=== PATIENT | female | born 1950 | race Caucasian/White ===

== ENCOUNTER 2019-11-26 20:20 | Inpatient (IN) | payer MEDICARE, MEDICAID, SELFPAY ==
[2019-11-26] VITALS (8 sets, daily range): BP systolic 110–137; BP diastolic 66–74; PULSE 108–115; RESP 12–23; TEMP 37; O2SAT 93–99; BMI 35.8
--- NOTE | ~2019-11-26 | XR_ITS ---
EXAMINATION: XR chest 1V portable EXAM DATE: 11/26/2019 20:35 INDICATION: STEMI. TECHNIQUE: Portable AP frontal chest x-ray was obtained. There is no prior study for comparison. FINDINGS: Sternotomy wires are present without findings to suggest sternal dehiscence. There is pulmo nary vascular congestion. Cardiomediastinal silhouette is normal. There is no pneumothorax suspected. Possible small pleural effusions. No confluent consolidation or pneumothorax. IMPRESSION: 1. Pulmonary vascular congestion. 2. Possible small pleural effusions. Reviewed, dictated and finalized at location A.
--- NOTE | ~2019-11-26 | XR_ITS ---
XR chest 1V portable DATE: 11/27/2019 12:53 INDICATION: Shortness of breath. TECHNIQUE: Portable supine AP chest on 11/27/2019 at 1249 hours COMPARISON: 11/27/2019 portable AP chest at 0009 hours FINDINGS: There are increased bilateral pulmonary infiltrates, in addition to prominence of the minor fissure consistent with subpleural edema and Дмитрий B lines consistent with pulmonary interstitial e dimitris. There are very small pleural effusions. Normal heart size. Status post sternotomy. Diffuse osteopenia. IMPRESSION: Increased pulmonary edema since 0009 hours today Reviewed, dictated and finalized at location B.
--- NOTE | ~2019-11-26 | XR_ITS ---
EXAMINATION: XR chest 1V portable DATE: 11/27/2019 00:59 INDICATION: Chest pain and shortness of breath TECHNIQUE: frontal view of the chest was obtained. COMPARISON: Chest radiograph dated 11/26/2019 FINDINGS: No significant interval change in pulmonary vascular congestion and a diffuse increased interstitial pattern in both lungs. No pneumothorax or definitive pleural effusion. Calcified nodules in the left lung along with calcified splenic nodules consistent with old granulomatous disease. Heart size is no rmal. Median sternotomy wires and mediastinal surgical clips are seen, likely from prior coronary art margaret bypass grafting. Cholecystectomy clips in right upper quadrant. IMPRESSION: 1. Diffuse increased interstitial pattern which could represent pulmonary edema or pneumonia. Reviewed, dictated and finalized at location A.
--- NOTE | ~2019-11-26 | XR_ITS ---
EXAMINATION: XR chest 1V portable DATE: 11/28/2019 06:07 INDICATION: Pulmonary edema. TECHNIQUE: A single frontal view of the chest was obtained. COMPARISON: Chest single view 11/27/2019 FINDINGS: There are airspace opacities in all lung zones bilaterally with a perihilar predominance. A calcified left lung nodule is consistent with old granulomatous disease. No pleural effusion or pneu mothorax. The heart size is normal. Median sternotomy wires are noted. IMPRESSION: 1. Stable diffuse lung disease, consistent with pulmonary edema versus pneumonia. Reviewed, dictated and finalized at location A. IMPRESSION: 1. Stable diffuse lung disease, consistent with pulmonary edema versus pneumoni a.
--- NOTE | ~2019-11-26 | US_ITS ---
US right upper quadrant DATE: 11/28/2019 09:48 INDICATION: Elevated liver function tests TECHNIQUE: Real-time imaging of liver, pancreas, gallbladder fossa COMPARISON: None FINDINGS: The gallbladder is surgically absent. The pancreas is not well demonstrated due to interference from overlying bowel gas. The common bile duct measures 4.5 mm, within normal range. No hepatic space-occupying mass lesion is evident. Normal hepatic portal venous flow direction. IMPRESSION: Status post cholecystectomy Limited evaluation of the pancreas Reviewed, dictated and finalized at Location A. Reviewed, dictated and finalized at location B.
--- NOTE | ~2019-11-26 | XR_ITS ---
EXAMINATION: XR chest 1V portable DATE: 12/04/2019 09:58 INDICATION: Congestive heart failure. Shortness of breath. TECHNIQUE: A single frontal view of the chest was obtained. COMPARISON: Chest single view 11/30/2019 FINDINGS: There are small pleural effusions. There are patchy airspace opacities in all right lung zo christoph and in left mid and lower lung zones with a basilar predominance. A calcified left lung nodule is consistent with old granulomatous disease. No pneumothorax. The heart size is normal. Median sternot anabelle wires are noted. IMPRESSION: 1. Multifocal lung disease with interval improvement, consistent with pulmonary edema versus pneumoni a. 2. Stable small pleural effusions. Reviewed, dictated and finalized at location A. IMPRESSION: 1. Multifocal lung disease with interval improvement, consistent with pulmonary edema versus pneumonia. 2. Stable small pleural effusions.
--- NOTE | ~2019-11-26 | XR_ITS ---
EXAMINATION: XR chest 1V portable DATE: 11/30/2019 05:51 INDICATION: Congestive heart failure. TECHNIQUE: A single frontal view of the chest was obtained. COMPARISON: Chest single view 11/29/2019 FINDINGS: There are small pleural effusions. A calcified left lung nodule is consistent with old gran ulomatous disease. There are airspace opacities in all lung zones bilaterally. No pneumothorax. The h eart size is normal. Median sternotomy wires are noted. IMPRESSION: 1. Stable diffuse lung disease, consistent with pulmonary edema versus pneumonia. 2. Small pleural effusions. Reviewed, dictated and finalized at location A. IMPRESSION: 1. Stable diffuse lung disease, consistent with pulmonary edema versus pneumoni a. 2. Small pleural effusions.
--- NOTE | ~2019-11-26 | XR_ITS ---
EXAMINATION: XR chest 1V portable INDICATION: Congestive heart failure TECHNIQUE: Portable AP chest at 1220 hours COMPARISON: 11/28/2019 FINDINGS: Diffuse lung disease persists with slight improvement in the right upper lung zone. No defi nite pleural effusion or pneumothorax is identified. The heart size is normal. Median sternotomy wire s are consistent with prior cardiac surgery. Calcified nodule of the left midlung zone is consistent with old granulomatous disease. IMPRESSION: 1. Diffuse lung disease with slight improvement in the right upper lung zone, consistent with pulmona ry edema and/or pneumonia. Reviewed, dictated and finalized at location A. IMPRESSION: 1. Diffuse lung disease with slight improvement in the right upper lung zone, c onsistent with pulmonary edema and/or pneumonia.
--- NOTE | 2019-11-26 20:21 | ECG_ITS ---
Measurements Intervals [place] Rate: 110 P: 18 NC: 159 QRS: 51 QRSD: 120 T: 120 QT: 380 QTc: 514 Interpretive Statements SINUS TACHYCARDIA LEFT BUNDLE BRANCH BLOCK HIGH LATERAL ST ELEVATION MYOCARDIAL INJURY- ACUTE LATERAL ST ELEVATION MYOCARDIAL INJURY- ACUTE BASELINE WANDER- I, II, AVR, AVL ABNORMAL ECG Electronically Signed On 11-27-2019 7:23:59 CDT by Elgin Maurice D.O.
--- NOTE | 2019-11-26 20:26 | ED.CHESTPAIN ---
HPI - Chest Pain General Chief Complaint: Chest Pain Stated Complaint: stemi Time Seen by Provider: 11/26/19 20:20 Source: patient, EMS and RN notes reviewed Mode of arrival: EMS Limitations: no limitations History of Present Illness HPI narrative: Pt is a 69 y/o female who presents to the ED, via EMS, with c/o 8/10 epigastric pain that began yesterday morning, but has progressively worsened. Pt describes her pain as burning. EMS called a STEMI in the field. Pt received ASA 324 mg and 1 NTG by EMS en route to the ED. EMS states the pt has a hx of an AZ and a triple CABG. Pt denies having a prior AZ. Pt states that she got out of the shower today and vomited before she could even dry off. Pt states that she normally goes to [facility] ED. Pt also reports nausea, vomiting, and dyspnea. MD complaint: chest pain Pertinent past history: prior AZ and CABG Onset (ago): day(s) (1) Timing of current episode: other (progressively worsening) Prior episodes: Yes Onset: during rest Pain location: epigastric Pain radiation: none Quality: burning Associated symptoms: nausea, vomiting and dyspnea Treatment prior to arrival: aspirin (324 mg by EMS) and nitroglycerin (x1 by EMS) Related Data Allergies Allergy/AdvReac Type Severity Reaction Status Date / Time ibuprofen [From Motrin IB] Allergy Swelling Verified 11/26/19 20:30 of the Eye morphine AdvReac Nausea and Verified 11/26/19 20:44 Vomiting Review of Systems Review of Systems: All systems reviewed & are unremarkable except as noted in HPI and below Cardiovascular: Cardiovascular: Reports chest pain (epigastric) Respiratory: Respiratory: Reports dyspnea Gastrointestinal: Gastrointestinal: Reports nausea and Reports vomiting PMFSH Past Medical History Medical History (Updated 11/26/19 @ 21:15 by Rasheed Bowie MD) Myocardial infarction Surgical History Surgical History (Updated 11/26/19 @ 20:39 by Divine Meza) S/P CABG x 3 Social History Social History (Updated 11/26/19 @ 20:40 by Divine Meza) Smoking status: Unknown if ever smoked Gender identity (if verbalized by the patient): Female Exam Const: General: alert and ill appearing acutely and chronically Nutritional Appearance: well nourished Orientation/consciousness: patient oriented x3 Other: moderate distress HENMT: Mouth: Yes dry mucous membranes Chest: Other: Sternotomy scar Resp: Effort & Inspection: normal respiratory effort Auscultation: clear to auscultation bilaterally Cardio: Rate: tachycardic Rhythm: regular rhythm GI: Other: Soft NT Neuro: General: patient oriented x3 and moves all extremities Speech: normal speech Extrem: General: edema bilateral Course Consultations Consultation #1: Discussed case with Dr. Salinas (Fabric Cutter). Recommends lytics and admission. Date: 11/26/19 Time: 20:43 Consultation #2: Discussed case with Dr. Bryant (Dockmaster). Accepts admission. Date: 11/26/19 Time: 21:04 Vital Signs Vital signs: Vital Signs Temperature 37.0 C 11/26/19 20:22 Pulse Rate 111 H 11/26/19 20:22 Respiratory Rate 18 11/26/19 20:22 Blood Pressure 137/70 11/26/19 20:22 Pulse Oximetry 93 11/26/19 20:22 Temperature 37.0 C 11/26/19 20:22 Pulse Rate 110 H 11/26/19 21:42 Respiratory Rate 12 11/26/19 21:42 Blood Pressure 113/74 11/26/19 21:42 Pulse Oximetry 97 11/26/19 21:42 MDM - Chest Pain MDM Narrative Medical decision making narrative: STEMI called. laboratory mechanic helper activated. Discussed the patient with interventional cardiology. He does not believe that it is appropriate to take stable STEMI patients to the systems testing laboratory technician given concerns for possible COVID exposure. He is recommending lytics and admission. Differential Diagnosis Differential diagnosis: Likely st elevation myocardial infarction Medical Records Data Attestation: I reviewed the patient's medical records. Lab Data Attestation: I reviewed the patient's lab res
[2019-11-26 20:33] LABS: Basophils Absolute Auto 0.1 K/mm3 (0.0-0.1); Basophils Percent Auto 0.6 % (0.2-1.2); Eosinophils Absolute Auto 0.1 K/mm3 (0-0.3); Eosinophils Percent Auto 0.4 % (0-4.4); Hematocrit 49.6 % (37.0-47.0); Hemoglobin 16.6 g/dL (12.0-15.0); Immature Granulocyte Absolute 0.07 K/mm3 (0.00-0.031); Immature Granulocyte Percent A 0.5 % (0-0.5); Lymphocytes Absolute Auto 2.69 K/mm3 (0.9-3.2); Lymphocytes Percent Auto 18.9 % (18.3-44.2); Mean Corpuscular HGB Conc 33.5 g/dl (32-36); Mean Corpuscular Hemoglobin 30.1 pg (26-34); Mean Corpuscular Volume 89.9 fl (80-100); Mean Platelet Volume 11.1 fl (7.4-10.4); Monocytes Absolute Auto 0.6 K/mm3 (0.1-0.6); Monocytes Percent Auto 4.1 % (2.6-8.5); Neutrophils Absolute Auto 10.8 K/mm3 (1.3-6.7); Neutrophils Percent Auto 75.5 % (45.5-73.1); Platelet Count Result 373 k/mm3 (150-375); Red Blood Count 5.52 M/mm3 (4.2-5.4); Red Cell Distribution Width 12.8 % (11.5-14.5); White Blood Count 14.3 K/mm3 (4.5-10.0)
[2019-11-26 20:43] LABS: INR 0.9; Partial Thromboplastin Time 27.7 SECONDS (22.3-36.8); Prothrombin Time 12.2 Seconds (11.1-14.7)
[2019-11-26 20:48] LABS: Alanine Aminotransferase 25 U/L (4-35); Albumin Level 3.3 g/dL (3.5-5.1); Alkaline Phosphatase 319 U/L (38-126); Aspartate Amino Transferase 122 U/L (14-36); Bilirubin,Total 0.5 mg/dL (0.2-1.3); Blood Urea Nitrogen 17 mg/dL (7-17); Calcium 9.1 mg/dL (8.4-10.2); Carbon Dioxide 20 mmol/L (22-30); Chloride 100 mmol/L (98-107); Estimated CRCL calculation 73 ml/min; Estimated Glomerular Filt Rate > 60; Glucose 478 mg/dL (65-105); HDL Direct 52 mg/dL; Potassium 3.3 mmol/L (3.4-5.0); Sodium 134 mmol/L (137-145); Triglycerides 385 mg/dL (<150)
[2019-11-26 20:52] LABS: Cholesterol 474 mg/dL (0-200)
[2019-11-26 20:56] LABS: LDL Cholesterol Direct 280 mg/dL
--- NOTE | 2019-11-26 20:57 | PC.NURSE ---
pt not to go to laboratory chief biomedical equipment specialist choosing to do lytic therapy opposed to laboratory chief awaiting orders to proceed with care of the pt
--- NOTE | 2019-11-26 20:59 | PC.NURSE ---
pt does not take any medications at home due to cost, stated that she has no money to pay for meds, and it has been a long time since she took anything
--- NOTE | 2019-11-26 21:02 | PC.NURSE ---
VRBO FROM DR BEAL TO START TPA AT 15MG OVER 1-2 MINS 50 MG OVER 30 MINS 35MG OVER 30 MINS
[2019-11-26] MEDS: ONDANSETRON INJ 4 MG/2 ML VIAL (21:24)
--- NOTE | 2019-11-26 21:34 | PC.NURSE ---
consent signed by and placed in chart for start of tpa.
[2019-11-26] MEDS: HEPARIN SODIUM 5,000 UNITS/ML VIAL 4000 UNITS IV PUSH (22:15)
[2019-11-26] MEDS: HEPARIN SOD/D5W 100 UNITS/ML 25,000 UNITS/250 ML BAG 9 UNITS IV CONT (22:29)
[2019-11-26] MEDS: METOPROLOL TARTRATE 50 MG TAB PO (22:32)
[2019-11-26] MEDS: CLOPIDOGREL BISULFATE 300 MG TABLET PO (22:32)
[2019-11-26] MEDS: ATORVASTATIN 40 MG TABLET 80 MG PO (22:32)
[2019-11-26] MEDS: LACTATED RINGERS 1,000 ML 75 ML IV CONT (23:29)
--- NOTE | 2019-11-26 23:38 | ADMGEN ---
This patient, Lisa Aparicio, was admitted to Intensive Care Unit-11. Patient/family oriented to hospital policies and general routines including ID bracelet, bed and alarms, visiting hours, pain management, procedures, bathroom and other care routines, personal items, smoking policy, room service/diet, and visiting hours. Valuables list has been completed. Information on how to activate the Rapid Response Team has been discussed. Patient/Family are encouraged to report perceived risks to care and to ask questions if they do not understand what they are told or what they should do.
[2019-11-27] VITALS (22 sets, daily range): BP systolic 103–143; BP diastolic 61–84; PULSE 105–125; RESP 14–91; TEMP 35.8–37.1; O2SAT 20–97
[2019-11-27] LABS: Basophils Absolute Auto 0.1 K/mm3 (0.0-0.1); Basophils Percent Auto 0.4 % (0.2-1.2); Eosinophils Percent Auto 0.1 % (0-4.4); Hematocrit 52.4 % (37.0-47.0); Hemoglobin 17.8 g/dL (12.0-15.0); Immature Granulocyte Percent A 0.5 % (0-0.5); Lymphocytes Absolute Auto 1.83 K/mm3 (0.9-3.2); Lymphocytes Percent Auto 9.7 % (18.3-44.2); Mean Corpuscular Hemoglobin 30.4 pg (26-34); Mean Corpuscular Volume 89.4 fl (80-100); Mean Platelet Volume 11.3 fl (7.4-10.4); Monocytes Absolute Auto 0.8 K/mm3 (0.1-0.6); Monocytes Percent Auto 4.3 % (2.6-8.5); Platelet Count Result 383 k/mm3 (150-375); Red Blood Count 5.86 M/mm3 (4.2-5.4); Red Cell Distribution Width 12.7 % (11.5-14.5); White Blood Count 18.8 K/mm3 (4.5-10.0)
--- NOTE | 2019-11-27 | ECHO_ITS ---
Patient Info Name: Lisa Aparicio Age: 69 years : 1950 Gender: Female Ht: 62 in Wt: 189 lbs BSA: 1.98 m2 HR: 110 bpm BP: 113 / 71 mmHg Heart Rhythm: Tachycardia Technical Quality: Good Exam Date: 11/27/2019 1:32 PM Exam Location: [facility] Patient Status: Inpatient Admit Date: 11/26/2019 Staff Ordering Physician: Griffin Salinas MD Careers Adviser: Anupam Perez RDCS Attending Provider: Griffin Salinas MD Exam Type: CA echo dop color flow w con Study Info Indications I21.3 - ST elevation (STEMI) myocardial infarction of unspecified site Complete two-dimensional, color flow and Doppler transthoracic echocardiogram is performed with contrast to opacify the left ventrical and to improve the deliniation of the left ventrical endocarial boarders. Contrast/Agitated Saline Contrast/Ag. Saline: Definity Amount: 3.00 ml Administered By: Beatris Turner RN Existing IV Access: Yes History/Risk Factors STEMI; CAD s/p 3vCABG, chest pain. Summary 1. Severe left ventricular dysfunction is present. Ejection fraction visually is 25-30%, and measured is 33%. There is akinesis of the posterior lateral, distal inferior, proximal, mid and distal lateral mclaughlin, severe hypokinesis of the mid distal septum and mild hypokinesis of the inferior wall and mid and proximal septum. 2. Normal left ventricular size with mild concentric hypertrophy. Diastolic dysfunction is present. 3. There is moderate mitral valve regurgitation. 4. There is moderate tricuspid valve regurgitation. 5. Left atrial chamber dimension is moderately enlarged. 6. Technically difficult study, definity echo contrast used. Left Ventricle Left ventricular chamber dimension is normal. Left ventricular systolic function is severely reduced, estimated at 25-30%. There is mildly increased left ventricular wall thickness. Left ventricular septal wall motion is normal. The left ventricular diastolic function is grade II diastolic dysfunction. Global longitudinal strain is severely elevated at 7 %. Right Ventricle Right ventricular chamber dimension is normal. Right ventricular systolic function is normal. Left Atria Left atrial chamber dimension is moderately enlarged. Right Atria Right atrial chamber dimension is normal. Aortic Valve The aortic valve is trileaflet. There is mild aortic valve sclerosis. There is no aortic valve stenosis. There is no aortic valve regurgitation. Pulmonic Valve The pulmonic valve is normal. There is no pulmonic valve stenosis. There is trace pulmonic regurgitation. Mitral Valve The mitral valve has normal leaflets. There is no mitral valve stenosis. There is moderate mitral valve regurgitation. Tricuspid Valve The tricuspid valve leaflets are normal. There is no significant tricuspid valve stenosis. There is moderate tricuspid valve regurgitation. No pulmonary hypertension, estimated pulmonary arterial systolic pressure is 29 mmHg. Pericardium/Pleural The pericardium appears normal. There is no pericardial effusion. Inferior Vena Cava Normal inferior vena cava with >50% collapse upon inspiration consistent with Empty right atrial pressure, 5 mmHg. Aorta The aortic root size at the sinus of Valsalva is normal. The prox ascending aorta size is normal. Left Ventricular Outflow Tract Name
--- NOTE | 2019-11-27 00:03 | ECG_ITS ---
Measurements Intervals [place] Rate: 119 P: 203 PA: 108 QRS: 140 QRSD: 126 T: 241 QT: 362 QTc: 509 Interpretive Statements SINUS RHYTHM LIMB LEAD REVERSAL INTRAVENTRICULAR CONDUCTION DELAY DELAYED PRECORDIAL R/S TRANSITION ST ELEVATION IN LEAD V6- CONSIDER ACUTE INJURY BASELINE ARTIFACT- I, II, AVR, V5 ABNORMAL ECG Electronically Signed On 11-27-2019 7:27:16 CDT by Elgin Maurice D.O.
[2019-11-27 00:06] LABS: INR 1.4; Prothrombin Time 16.6 Seconds (11.1-14.7)
[2019-11-27 00:09] LABS: Partial Thromboplastin Time 156.8 SECONDS (22.3-36.8)
[2019-11-27 00:18] LABS: Glucose 511 mg/dL (65-105)
[2019-11-27 00:30] LABS: Troponin I > 80.000 ng/mL (0.000-0.034)
[2019-11-27] MEDS: FUROSEMIDE INJ 40 MG/4 ML VIAL 20 MG IV PUSH (00:59)
[2019-11-27] MEDS: INSULIN HUMAN REGULAR (*BKC) 100 UNITS/ML 10 UNITS IV PUSH (01:00)
[2019-11-27] MEDS: MORPHINE SULFATE 2 MG/ML INJ IV PUSH (01:15)
[2019-11-27] MEDS: NITROGLYCERIN/D5W 200 MCG/ML 50 MG/250 ML BTL 6 MG IV CONT (01:22)
[2019-11-27] MEDS: FUROSEMIDE INJ 40 MG/4 ML VIAL IV PUSH ×2 (02:12→15:19)
[2019-11-27] MEDS: ONDANSETRON INJ 4 MG/2 ML VIAL IV PUSH ×3 (02:12→15:04)
[2019-11-27 02:24] LABS: Basophils Absolute Auto 0.1 K/mm3 (0.0-0.1); Basophils Percent Auto 0.5 % (0.2-1.2); Eosinophils Percent Auto 0.1 % (0-4.4); Hematocrit 52.8 % (37.0-47.0); Hemoglobin 17.5 g/dL (12.0-15.0); Immature Granulocyte Absolute 0.08 K/mm3 (0.00-0.031); Immature Granulocyte Percent A 0.5 % (0-0.5); Lymphocytes Absolute Auto 1.24 K/mm3 (0.9-3.2); Lymphocytes Percent Auto 7.1 % (18.3-44.2); Mean Corpuscular HGB Conc 33.1 g/dl (32-36); Mean Corpuscular Hemoglobin 30.2 pg (26-34); Mean Corpuscular Volume 91.2 fl (80-100); Mean Platelet Volume 11.4 fl (7.4-10.4); Monocytes Absolute Auto 0.8 K/mm3 (0.1-0.6); Monocytes Percent Auto 4.6 % (2.6-8.5); Neutrophils Absolute Auto 15.4 K/mm3 (1.3-6.7); Neutrophils Percent Auto 87.2 % (45.5-73.1); Platelet Count Result 395 k/mm3 (150-375); Red Blood Count 5.79 M/mm3 (4.2-5.4); Red Cell Distribution Width 13.1 % (11.5-14.5); White Blood Count 17.6 K/mm3 (4.5-10.0)
--- NOTE | 2019-11-27 02:38 | PC.NURSE ---
Received this patient to ICU 11 from ED at 2315 on 11/26/19 post STEMI. TPA given in ED per Dr. Salinas's orders vs laboratory sample carrier. Called Dr. Bryant at 0000 11/27/19 because there is no hospitalist on the case because the patient's respirations were now labored, she was requiring 5L o2 vs the 1L she came up to ICU on, her lungs were coarse sounding, she was breathing 30 bpm, her heart rate was up to 130/min, her blood sugar was 478, and there was some bleeding in her mouth. Dr. Bryant told me to order a chest xray and call him with the results. I ordered the xray and noticed the patient was doing even worse so I got an EKG and called Dr. Salinas at 0033. He said to give a one time dose of 20mg IV lasix and to start her on a nitro drip at 20. Dr. Salinas also said that we may have to take the patient to the laboratory sample carrier early this morning around 0700, but keep her heparin drip running for now and make her NPO. I did all of this and called Dr. Bryant back at 0050. I told him the results of the chest xray as well as the fact that the patient's glucose was now 511 and her breathing/pain was still labored. Dr. Bryant told me to order a high dose corrective insulin scale, check her blood sugars every 4 hours, and administer 10 units of regular insulin IV and that I could give 2mg IV morphine. After doing this the patient fell asleep for a little bit. Then at 0200 she woke up and felt really nauseous and threw up so I called Dr. Bryant at 0206 and told him about the patient's nausea as well as her lungs not sounding much improved. He told me to give her 40 IV lasix and a dose of zofran. The patient urinated 200mL after the 40mg lasix and is now laying in bed resting at 0256 11/27/19.
[2019-11-27 03:40] LABS: Troponin I > 80.000 ng/mL (0.000-0.034)
[2019-11-27 04:00] LABS: Glucose Point of Care > 500 (65-105)
[2019-11-27] MEDS: INSULIN HUMAN REGULAR (*BKC) 100 UNITS in SODIUM CHLORIDE 0.9% IV 99 ML 8.8 UNITS IV CONT (04:45)
[2019-11-27 04:46] LABS: Hemoglobin A1C 13.9 % (<5.7)
[2019-11-27] MEDS: PROCHLORPERAZINE EDISYLATE 10 MG/2 ML VIAL IV PUSH ×3 (04:46→20:10)
[2019-11-27 04:54] LABS: Magnesium 1.7 mg/dL (1.6-2.3); Phosphorus 5.8 mg/dL (2.5-4.5)
[2019-11-27] MEDS: SODIUM CHLORIDE 0.9% IV 1,000 ML 10 ML IV CONT (04:58)
[2019-11-27 05:11] LABS: Blood Urea Nitrogen 21 mg/dL (7-17); Calcium 9.1 mg/dL (8.4-10.2); Carbon Dioxide 21 mmol/L (22-30); Chloride 100 mmol/L (98-107); Estimated CRCL calculation 57 ml/min; Estimated Glomerular Filt Rate > 60; Glucose 575 mg/dL (65-105); Potassium 3.8 mmol/L (3.4-5.0); Sodium 132 mmol/L (137-145)
[2019-11-27 05:13] LABS: Partial Thromboplastin Time > 200.0 SECONDS (22.3-36.8)
[2019-11-27 06:03] LABS: Glucose Point of Care 486 (65-105)
[2019-11-27 06:52] LABS: Glucose Point of Care 449 (65-105)
[2019-11-27 08:09] LABS: Glucose Point of Care 402 (65-105)
--- NOTE | 2019-11-27 08:29 | PM.IMHP ---
H&P: HPI History of Present Illness Chief complaint: STEMI Narrative: Lisa Aparicio is a 69 year old female CAD, history of remote CABG x3 in 2005 at [place], [place] (as per patient, operative report not available), poorly controlled diabetes mellitus, noncompliance with medical regimen and outpatient follow-up due to financial reasons. Patient presented to [facility] on 11/26/2019 with about 1 day history of epigastric discomfort associated with diaphoresis and nausea. At baseline, patient states that he is able to walk without difficulty. She states due to financial reasons, she has not been able to follow-up with a adult services librarian for last 2-3 years. She gives remote history of CABG x3. Patient's EKG upon arrival in the ER which I personally evaluated showed sinus tachycardia, heart rate 110 beats per minute, left bundle-branch block, ST segment elevation in the lateral leads. Patient was initiated on thrombolytic therapy and was given tenecteplase. She was also given antiplatelet treatment with aspirin and clopidogrel, and anticoagulation with unfractionated heparin. Patient was subsequently admitted to the ICU. She had mild discomfort which resolved through the night. EKG in the morning which I personally evaluated showed sinus tachycardia, modest improvement in the ST segment abnormality in the lateral leads. Chest x-ray showed pulmonary vascular congestion. Review of Systems Constitutional: Constitutional: Denies chills, Denies fatigue, Denies fever(s) and Denies headache(s) Eyes: Eyes: Reports as per HPI, Denies change in vision, Denies loss of vision and Denies eye pain ENT: Reports as per HPI, Reports Normal hearing present, Denies headache(s), Denies lip swelling, Denies epistaxis and Denies sore throat Cardiovascular: Cardiovascular: Reports as per HPI, Reports chest pain, Denies syncope, Denies irregular heart rhythm, Reports lightheadedness and Reports dyspnea Respiratory: Respiratory: Reports as per HPI, Denies cough and Reports dyspnea Gastrointestinal: Gastrointestinal: Reports as per HPI, Denies melena, Reports nausea and Reports vomiting Genitourinary: Genitourinary: Reports as per HPI Musculoskeletal: Musculoskeletal: Reports as per HPI, Denies myalgias, Denies muscle cramps and Denies muscle weakness Integumentary/Breasts: Skin/Breast: Reports as per HPI, Denies pruritus and Denies rash Neurologic: Reports as per HPI, Reports Normal hearing present, Denies behavioral changes, Denies syncope, Denies headache(s) and Denies loss of vision Psychiatric: Psychiatric: Reports as per HPI, Denies anxiety, Denies behavioral changes and Denies depression Endocrine: Endocrine: Reports as per HPI, Denies fatigue, Denies polydipsia and Denies polyuria Hematologic/Lymphatic: Hematologic/Lymphatic: Reports as per HPI, Denies easy bleeding and Denies easy bruising Allergic/Immunologic: Allergic/Immunologic: Reports as per HPI, Denies lip swelling and Denies wheezing PMFSH Past Medical History Medical History Myocardial infarction Surgical History Surgical History S/P CABG x 3 Family History Family History (Updated 11/27/19 @ 08:57 by Griffin Salinas MD) Mother Heart disease Social History Social History Smoking status: Never smoker Alcohol intake: never Substance use: never Substance use type: does not use Gender identity (if verbalized by the patient): Female Spiritual care concerns: No Agree to blood products: Yes Meds Home Medications and Allergies Home Medications Medication Instructions Recorded Confirmed Type No Home Medications 11/26/19 11/26/19 History Allergies Allergy/AdvReac Type Severity Reaction Status Date / Time ibuprofen [From Motrin IB] Allergy Swelling Verified 11/26/19 20:30 of the Eye
[2019-11-27 08:44] LABS: Blood Urea Nitrogen 22 mg/dL (7-17); Calcium 9.2 mg/dL (8.4-10.2); Carbon Dioxide 22 mmol/L (22-30); Chloride 104 mmol/L (98-107); Estimated CRCL calculation 57 ml/min; Estimated Glomerular Filt Rate > 60; Glucose 410 mg/dL (65-105); Potassium 3.2 mmol/L (3.4-5.0); Sodium 136 mmol/L (137-145)
[2019-11-27 09:06] LABS: Glucose Point of Care 359 (65-105)
--- NOTE | 2019-11-27 09:15 | WPDMODSED ---
Moderate Sedation Note-Pt Data Patient Data Allergies Allergy/AdvReac Type Severity Reaction Status Date / Time ibuprofen [From Motrin IB] Allergy Swelling Verified 11/26/19 20:30 of the Eye morphine AdvReac Nausea and Verified 11/26/19 20:44 Vomiting Home Medications Medication Instructions Recorded Confirmed Type No Home Medications 11/26/19 11/26/19 History Current Medications: Active Medications Dextrose (Dextrose 50% Syringe) 12.5 gm IV PUSH PRN PRN; Protocol PRN Reason: Hypoglycemia Glucagon (Glucagon For Inj) 1 mg IM PRN PRN; Protocol PRN Reason: Hypoglycemia Glucose (Glutose 15) 15 gm PO PRN PRN; Protocol PRN Reason: Hypoglycemia Heparin Sodium (Porcine) (Heparin Sodium) 4,000 units IV PUSH PRN PRN PRN Reason: aPTT less than 55 seconds Heparin Sodium (Porcine) (Heparin Sodium) 2,500 units IV PUSH PRN PRN PRN Reason: aPTT 55 - 70 seconds Heparin Sodium/Dextrose (Heparin Sodium/D5w 100 Units/Ml) 25,000 units in 250 mls @ 7 mls/hr IV CONT .Q24H [facility]; Protocol Last Titration: 11/27/19 06:30 Dose: 7 mls/hr, 7 mls/hr Documented by: Nitroglycerin/Dextrose (Nitroglycerin In 5% Dextrose 50 Mg) 50 mg in 250 mls @ 6 mls/hr IV CONT .Q24H [facility]; Protocol Stop: 11/28/19 00:43 Last Admin: 11/27/19 01:22 Dose: 20 mcg/min, 6 mls/hr Documented by: Dextrose (Dextrose 5% 1,000 Ml) 1,000 mls @ 100 mls/hr IVPB PRN PRN; Protocol PRN Reason: Hypoglycemia Sodium Chloride (Normal Saline Iv) 1,000 mls @ 10 mls/hr IV CONT .Q24H [facility] Last Admin: 11/27/19 04:58 Dose: 10 mls/hr Documented by: Insulin Aspart 100 units/ (Sodium Chloride) 100 mls @ 17.1 mls/hr IV CONT .Q5H51M [facility]; Protocol Last Titration: 11/27/19 09:05 Dose: 17.94 units/hr, 17.9 mls/hr Documented by: Morphine Sulfate (Morphine Sulfate Inj) 2 mg IV PUSH Q4H PRN PRN Reason: Pain Rated 7-10 Last Admin: 11/27/19 01:15 Dose: 2 mg Documented by: Ondansetron HCl (Zofran Inj) 4 mg IV PUSH Q4H PRN PRN Reason: Nausea And Vomiting Last Admin: 11/27/19 07:54 Dose: 4 mg Documented by: Prochlorperazine Edisylate (Compazine) 10 mg IV PUSH Q6H PRN PRN Reason: Nausea And Vomiting Last Admin: 11/27/19 04:46 Dose: 10 mg Documented by: Sedation/Anesthesia: No previous sedation/anesthesia problems (including family history). [facility] Past Medical History Medical History Myocardial infarction Surgical History Surgical History S/P CABG x 3 Family History Family History (Updated 11/27/19 @ 08:57 by Griffin Salinas MD) Mother Heart disease Social History Social History Smoking status: Never smoker Alcohol intake: never Substance use: never Substance use type: does not use Gender identity (if verbalized by the patient): Female Spiritual care concerns: No Agree to blood products: Yes Mod Sed Physical Exam Physical Exam Pre Procedural Exam: Normal: Airway Hours since solid foods: 10 Hours since liquid intake: 10 Internal Medicine - PN: Obj Da Vital Signs Vital Signs: Vital Signs - 24 hr 11/26/19 20:22 11/26/19 20:45 11/26/19 21:19 Temperature 37.0 C Pulse Rate 108 H 108 H 112 H Respiratory Rate 18 17 18 Blood Pressure 137/70 120/66 113/74 Pulse Oximetry 93 95 97 11/26/19 21:42 11/26/19 22:13 11/26/19 22:32 Temperature Pulse Rate 110 H 110 H 115 H Respiratory Rate 12 18 Blood Pressure 113/74 110/69 Pulse Oximetry 97 97 11/26/19 22:34 11/26/19 22:58 11/27/19 00:00 Temperature 35.8 C L Pulse Rate 112 H 115 H 119 H Respiratory Rate 18 23 H 20 Blood Pressure 124/74 129/70 143/84 H Pulse Oximetry 99 97 90 11/27/19 02:00 11/27/19 04:00 11/27/19 06:00 Temperature 36.1 C L Pulse Rate 114 H 115 H 114 H Respiratory Rate 22 H 19 14 Blood Pressure 120/66 124/76 131/82 Pulse Oximetry 91 95 92 Intake/Output Intake/Output: Int
--- NOTE | 2019-11-27 09:31 | WPDCNINT ---
Assessment and Plan Assessment and plan (1) ST elevation (STEMI) myocardial infarction: Qualifiers: Involved coronary artery: unspecified coronary artery Qualified Code(s): I21.3 - ST elevation (STEMI) myocardial infarction of unspecified site Code(s): I21.3 - ST elevation (STEMI) myocardial infarction of unspecified site Status: Acute Assessment and Plan: Patient presented epigastric pain, 8/10 in intensity, radiating to left shoulder and left side of the chest. EKG showed ST-elevation in the lateral leads. Patient received thrombolytic treatment with tenecteplase In the ED - patient started on aspirin, clopidogrel heparin infusion - appreciate Cardiology evaluation and recommendations, patient been taken for a coronary angiogram this morning. - echocardiogram has been ordered (2) Uncontrolled diabetes mellitus: Code(s): E11.65 - Type 2 diabetes mellitus with hyperglycemia Status: Acute Assessment and Plan: Patient with uncontrolled diabetes, started on insulin infusion. Patient does not have an anion gap, no metabolic acidosis. - Patient's hemoglobin A1c is 13.9. (3) Noncompliance: Code(s): Z91.19 - Patient's noncompliance with other medical treatment and regimen Status: Acute Assessment and Plan: Patient is noncompliant with her medical regimen as well as Doctor follow-ups due to financial /insurance issues. - Will have care coordination and child protective services social worker discuss with the patient and assist as required (4) History of coronary artery bypass graft x 3: Code(s): Z95.1 - Presence of aortocoronary bypass graft Status: Acute Assessment and Plan: history of coronary bypass graft, Additional Plan discussed with patient updated with her condition and plan of care. He is aware that she will be having a coronary angiogram this morning. Discussed with cardiology at length. Code status: Full code Critical care time spent: 39 minutes Due to a high probability of clinically significant, life threatening deterioration, the patient required my highest level of preparedness to intervene emergently and I personally spent this critical care time directly and personally managing the patient. This critical care time included obtaining a history; examining the patient; pulse oximetry; ordering and review of studies; arranging urgent treatment with development of a management plan; evaluation of patient's response to treatment; frequent reassessment; and discussions with other providers. It was exclusive of separately billable procedures and treating other patients and teaching time. Please see Assessment and Plan section and the rest of the note for further information on patient assessment and treatment [employer] Consult Note Consult date: 11/27/19 Time Seen: 07:04 Reason for consult: ST-elevation status post tPA, epigastric discomfort, nausea, diaphoresis vomiting HPI: Lisa Aparicio is a 69 year old female with history of myocardial infarction, diabetes, CABG x3, poor compliance with medications and Docor follow-ups due to insurance/financial issues. patient presented to the ED on 11/27/2019 with complains of epigastric discomfort associated with nausea, vomiting, diaphoresis. the epigastric pain progressively worsened and described as burning sensation, 8/10 in intensity. EMS was called, they alerted the code in the field. Patient received aspirin, nitroglycerin and was brought to the ED. EKG in the ER showed S tachycardia, left bundle branch block with ST elevation in lateral leads. Patient was initiated on thrombolytics therapy and was given tenecteplase. She was also started on aspirin, clopidogrel and heparin infusion. Patient was transfer the ICU for further management. Patient seen and examined the ICU this morning, continues to have chest /Epigastric discomfort, nausea and vomiting. patient's blood sugars were in the 478 on
--- NOTE | 2019-11-27 10:40 | PC.NURSE ---
Patient left floor to Director [place] 09:42. Left with insulin drip and o2 at 3L NC
--- NOTE | 2019-11-27 11:50 | WPDCARDPROC ---
Cardiac Cath Procedure Note Date of procedure:: 11/27/19 Performing physician:: Griffin Salinas MD Indication:: ST elevation myocardial infarction Procedure Procedure note:: CARDIAC CATHETERIZATION AND PERCUTANEOUS CORONARY INTERVENTION REPORT DATE OF PROCEDURE: 11/27/2019 INDICATION FOR PROCEDURE: ST-elevation myocardial infarction BRIEF CLINICAL HISTORY: 69-year-old female with known CAD, history of remote CABG x3 in 2006 at [place], [place] (as per patient, operative report not available), poorly controlled diabetes mellitus, noncompliance with medical regimen and outpatient follow-up due to financial reasons. Patient presented with epigastric discomfort associated with diaphoresis, found to have left bundle-branch block, ST segment elevation in the lateral leads. She received thrombolytic treatment with tenecteplase, along with dual antiplatelet therapy with aspirin and clopidogrel and anticoagulation with heparin. Her epigastric discomfort improved last night, EKG showed modest improvement in the ST segment in the lateral leads. Patient was brought to the [employer] laborer to re-evaluate her [place] coronary arteries and bypass grafts. Benefits, risks and alternatives of the procedure were discussed with the patient and informed consent was taken prior to the procedure. PROCEDURES PERFORMED: 1. Selective left and right coronary angiogram 2. Selective bypass graft angiography 3. Selective left subclavian angiogram 2. Complex Percutaneous coronary intervention- a) aspiration thrombectomy of the SVG graft to OM using export catheter; b) balloon angioplasty and stenting of SVG graft to OM, SVG-OM anastomosis and k[place] OM branch ( 4.0 x 22 mm sirolimus eluting stent in the SVG; 2.75 x 18 mm sirolimus eluting stent at the anastomosis site; 2.5 x 22 mm sirolimus eluting stent in the k[place] OM branch) 3. Selective right common femoral angiogram and deployment of Angio-Seal hemostatic device 4. Moderate sedation-CPT code 74926 MODERATE SEDATION: Midazolam 1 mg; fentanyl 25 mcg. Start time 1006 , Stop time 1142 ; Total [id number] time 96 minutes; Ketan Song RN was trained observer for moderate sedation. ACCESS SITE: Right common femoral artery PROCEDURE NOTE: After obtaining informed consent, patient was brought to catheterization lab and prepped and draped in a usual sterile manner. After local anesthesia with lidocaine, right common femoral artery access was taken with micropuncture needle followed by insertion of a 5 [place] sheath. Selective left and right coronary angiogram was performed using 5 [place] JL4 and JR4 catheters respectively. Orthogonal views were taken. Next, selective bypass graft angiography was performed using 5 [place] JR4 diagnostic catheter. The same catheter was withdrawn and selective left subclavian angiogram was performed. After this, the catheter was exchanged with a 5 [place] IM catheter, and selective CORONADO angiogram was performed. Selective right common femoral angiogram was performed after PCI followed by successful deployment of Angio-Seal vascular closure device. Patient tolerated procedure well without any immediate procedure related complications. FINDINGS: [place] CORONARY ARTERIES: LEFT MAIN CORONARY: The left main coronary artery is a small to medium caliber vessel with mild narrowing at the ostium. The vessel bifurcates into LAD and left circumflex much. LEFT ANTERIOR DESCENDING ARTERY: The LAD has moderate diffuse disease in the proximal segment and has chronic total occlusion in the mid segment after origin of the septal quality reviewer. Distal LAD is supplied by patent CORONADO. LEFT CIRCUMFLEX ARTERY: The left circumflex artery is a small to medium caliber vessel with diffuse disease. Visualized OM branches are small-caliber vessels. there is retrograde filling of the vein graft RCA from the LCX; also a collateral is seen arising from the LCX to the proximal RCA. RIGHT [place]
[2019-11-27 13:02] LABS: Blood Urea Nitrogen 23 mg/dL (7-17); Carbon Dioxide 22 mmol/L (22-30); Chloride 108 mmol/L (98-107); Estimated CRCL calculation 57 ml/min; Estimated Glomerular Filt Rate > 60; Glucose 174 mg/dL (65-105); Potassium 3.3 mmol/L (3.4-5.0); Sodium 134 mmol/L (137-145)
[2019-11-27 13:29] LABS: Glucose Point of Care 154 (65-105)
[2019-11-27 13:29] LABS: Glucose Point of Care 142 (65-105)
[2019-11-27 13:47] LABS: Partial Thromboplastin Time > 200.0 SECONDS (22.3-36.8)
[2019-11-27] MEDS: PERFLUTREN LIPID MICROSPHERES 1.5 ML VIAL DILUTED TO 10 ML TOTAL VOLUME IV PUSH (13:55)
[2019-11-27 14:15] LABS: Glucose Point of Care 142 (65-105)
[2019-11-27] MEDS: INSULIN DETEMIR 100 UNITS/ML 20 UNITS SUB-Q ×2 (15:29→20:10)
[2019-11-27 15:49] LABS: Glucose Point of Care 125 (65-105)
[2019-11-27 16:57] LABS: Glucose Point of Care 155 (65-105)
[2019-11-27] MEDS: INSULIN ASPART (*BKC) 100 UNITS/ML SUB-Q (19:13)
[2019-11-27 19:20] LABS: Blood Urea Nitrogen 25 mg/dL (7-17); Calcium 8.7 mg/dL (8.4-10.2); Carbon Dioxide 24 mmol/L (22-30); Chloride 105 mmol/L (98-107); Estimated CRCL calculation 51 ml/min; Estimated Glomerular Filt Rate > 60; Glucose 229 mg/dL (65-105); Potassium 3.9 mmol/L (3.4-5.0); Sodium 135 mmol/L (137-145)
[2019-11-27 19:21] LABS: Glucose Point of Care 222 (65-105)
[2019-11-27] MEDS: TICAGRELOR 90 MG TABLET PO (20:10)
[2019-11-27 22:25] LABS: Activated Clotting Time 125 sec (74-137)
[2019-11-27 23:12] LABS: Blood Urea Nitrogen 28 mg/dL (7-17); Calcium 9.1 mg/dL (8.4-10.2); Carbon Dioxide 24 mmol/L (22-30); Chloride 108 mmol/L (98-107); Estimated CRCL calculation 51 ml/min; Estimated Glomerular Filt Rate > 60; Glucose 261 mg/dL (65-105); Potassium 4.7 mmol/L (3.4-5.0); Sodium 133 mmol/L (137-145)
[2019-11-28] VITALS (15 sets, daily range): BP systolic 97–116; BP diastolic 66–75; PULSE 118–133; RESP 21–32; TEMP 36.6–37; O2SAT 95–99
[2019-11-28] MEDS: INSULIN ASPART (*BKC) 100 UNITS/ML SUB-Q ×4 (00:32→23:43)
[2019-11-28 00:42] LABS: Glucose Point of Care 238 (65-105)
[2019-11-28 04:47] LABS: Basophils Absolute Auto 0.1 K/mm3 (0.0-0.1); Basophils Percent Auto 0.3 % (0.2-1.2); Hematocrit 51.6 % (37.0-47.0); Hemoglobin 17.4 g/dL (12.0-15.0); Immature Granulocyte Absolute 0.22 K/mm3 (0.00-0.031); Immature Granulocyte Percent A 0.9 % (0-0.5); Lymphocytes Absolute Auto 1.72 K/mm3 (0.9-3.2); Lymphocytes Percent Auto 6.9 % (18.3-44.2); Mean Corpuscular HGB Conc 33.7 g/dl (32-36); Mean Corpuscular Hemoglobin 30.2 pg (26-34); Mean Corpuscular Volume 89.6 fl (80-100); Mean Platelet Volume 11.4 fl (7.4-10.4); Monocytes Absolute Auto 2.5 K/mm3 (0.1-0.6); Monocytes Percent Auto 10.2 % (2.6-8.5); Neutrophils Absolute Auto 20.4 K/mm3 (1.3-6.7); Neutrophils Percent Auto 81.7 % (45.5-73.1); Platelet Count Result 345 k/mm3 (150-375); Red Blood Count 5.76 M/mm3 (4.2-5.4); Red Cell Distribution Width 13.7 % (11.5-14.5)
[2019-11-28 04:58] LABS: Alanine Aminotransferase 159 U/L (4-35); Albumin Level 2.7 g/dL (3.5-5.1); Alkaline Phosphatase 295 U/L (38-126); Bilirubin,Total 0.5 mg/dL (0.2-1.3); Blood Urea Nitrogen 32 mg/dL (7-17); Calcium 9.1 mg/dL (8.4-10.2); Carbon Dioxide 24 mmol/L (22-30); Chloride 107 mmol/L (98-107); Estimated CRCL calculation 42 ml/min; Estimated Glomerular Filt Rate 49; Glucose 235 mg/dL (65-105); Magnesium 1.9 mg/dL (1.6-2.3); Phosphorus 4.5 mg/dL (2.5-4.5); Sodium 134 mmol/L (137-145)
[2019-11-28 05:16] LABS: Aspartate Amino Transferase 1115 U/L (14-36)
[2019-11-28 07:01] LABS: Glucose Point of Care 226 (65-105)
--- NOTE | 2019-11-28 07:30 | WPDINTPN ---
Progress Note: A&P Assessment and Plan (1) ST elevation (STEMI) myocardial infarction: Qualifiers: Involved coronary artery: unspecified coronary artery Qualified Code(s): I21.3 - ST elevation (STEMI) myocardial infarction of unspecified site Code(s): I21.3 - ST elevation (STEMI) myocardial infarction of unspecified site Status: Acute Assessment and Plan: Patient presented epigastric pain, 8/10 in intensity, radiating to left shoulder and left side of the chest. EKG showed ST-elevation in the lateral leads. Patient received thrombolytic treatment with tenecteplase In the ED - patient started on aspirin, clopidogrel heparin infusion - patient continued to had pain. Patient was taken for cardiac catheterization yesterday and underwent Complex Percutaneous coronary intervention- a) aspiration thrombectomy of the SVG graft to OM using export catheter; b) balloon angioplasty and stenting of SVG graft to OM, SVG-OM anastomosis and [place] OM branch ( 4.0 x 22 mm sirolimus eluting stent in the SVG; 2.75 x 18 mm sirolimus eluting stent at the anastomosis site; 2.5 x 22 mm sirolimus eluting stent in the [place] OM branch) - echocardiogram has been ordered - start low-dose Coreg - continue aspirin, p.r.n. nitroglycerin and Brilinta - hold statin due to elevated liver enzymes. (2) Uncontrolled diabetes mellitus: Code(s): E11.65 - Type 2 diabetes mellitus with hyperglycemia Status: Acute Assessment and Plan: Patient with uncontrolled diabetes, she was started on insulin infusion. insulin infusion was transition to subcutaneous insulin yesterday. I will increase Lantus dose and continue sliding scale - Patient's hemoglobin A1c is 13.9. (3) Noncompliance: Code(s): Z91.19 - Patient's noncompliance with other medical treatment and regimen Status: Acute Assessment and Plan: Patient is noncompliant with her medical regimen as well as Doctor follow-ups due to financial /insurance issues. - Will have care coordination and social insurance adviser discuss with the patient and assist as required (4) CHF (congestive heart failure): Code(s): I50.9 - Heart failure, unspecified Status: Acute Assessment and Plan: Will continue Lasix today. 40 mg IV x1 (5) Elevated transaminase level: Code(s): R74.0 - Nonspecific elevation of levels of transaminase and lactic acid dehydrogenase [LDH] Status: Acute Assessment and Plan: likely secondary to cardiogenic shock. Check right upper quadrant ultrasound. Check hepatitis panel. Hold statin for now. monitor levels Additional Plan discussed with patient updated with her condition and plan of care. Discussed with cardiology. aggressive incentive spirometry heparin subcutaneous for DVT prophylaxis to be started today. Out of bed and up in chair today Code status: Full code Subjective Date/time seen: 11/28/19 0715 patient is complaining of left shoulder pain. Pain is 8/10, Chronic, worse with moving her arm or breathing.. She states she takes Tylenol at home but does not work for her.. She still feels short of breath on exertion. She denies any chest pain. No cough, nausea, vomiting, diarrhea or abdominal pain. patient has been in sinus tachycardia overnight. Review of Systems Review of Systems: All systems reviewed & are unremarkable except as noted in HPI and below ( HPI) Exam Const: General: uncomfortable HENMT: Mouth: Yes moist mucous membranes Eyes: Sclera: sclerae normal Pupils: Equal, round and reactive pupils present Neck: Neck: supple and no JVD Resp: Effort & Inspection: normal respiratory effort Auscultation: rales and diminished lung sounds Cardio: Rate: regular rate and tachycardic GI: Inspection: non-distended Auscultation: normal bowel sounds : Other: Cardona Urinary Catheter: Urinary Catheter: urine dark Skin: General sk
[2019-11-28] MEDS: TICAGRELOR 90 MG TABLET PO ×2 (09:08→20:18)
[2019-11-28] MEDS: carvediloL 3.125 MG TABLET PO ×2 (09:08→20:18)
[2019-11-28] MEDS: ASPIRIN 81 MG ENTERIC TABLET PO (09:08)
[2019-11-28] MEDS: INSULIN DETEMIR 100 UNITS/ML 30 UNITS SUB-Q ×2 (09:09→20:20)
[2019-11-28 09:52] LABS: Hepatitis B Surface Antigen Negative (Negative)
[2019-11-28 09:58] LABS: HAV RESULT Negative (Negative); Hepatitis B Core IgM Result Negative (Negative)
[2019-11-28 10:10] LABS: Hepatitis C Virus Antibody Negative (Negative)
[2019-11-28] MEDS: FUROSEMIDE INJ 40 MG/4 ML VIAL IV PUSH (10:49)
[2019-11-28 12:14] LABS: Glucose Point of Care 245 (65-105)
--- NOTE | 2019-11-28 12:14 | PM.PNCARD ---
Progress Note: A&P Assessment and Plan (1) ST elevation (STEMI) myocardial infarction: Qualifiers: Involved coronary artery: unspecified coronary artery Qualified Code(s): I21.3 - ST elevation (STEMI) myocardial infarction of unspecified site Code(s): I21.3 - ST elevation (STEMI) myocardial infarction of unspecified site Status: Acute Assessment and Plan: Had STEMI yesterday secondary to occlusion of the SVG to the large OM, treated with thrombolytics and, later, stenting of the SVG and OM with 3 stents. Appears to have had a large amount of myocardial damage. QRS looks a little wider, may be rate related but to be a poor prognositic sign as well Continue aspirin and Brilinta, Started on low-dose carvedilol (2) CHF (congestive heart failure): Code(s): I50.9 - Heart failure, unspecified Status: Acute Assessment and Plan: Ischemic cardiomyopathy EF 25-30%. In CHF not responding well to IV diuretics. Soft blood pressure does not give us much room to work. Will try but Bumex 3 mg IV push Not much response then consider dobutamine, though that may aggravate her tachycardia, or nitrates. (3) Elevated transaminase level: Code(s): R74.0 - Nonspecific elevation of levels of transaminase and lactic acid dehydrogenase [LDH] Status: Acute Assessment and Plan: Elevated at liver enzymes noted, possibly secondary to shock liver. Statin DC'd. US neg Hepatitis screen pending (4) Uncontrolled diabetes mellitus: Code(s): E11.65 - Type 2 diabetes mellitus with hyperglycemia Status: Acute Assessment and Plan: DKA resolved, blood sugars doing better. Subjective Date/time seen: 11/28/19 12:14 Interval history: 69-year-old female with history of CABG, admitted 11/27/2019 with an acute inferolateral [place] and received thrombolytics therapy. She later went to the laborer [employer] [facility] for thrombectomy of the OM saphenous vein graft and stenting of the SVG, the anastomosis and OM 1. The CORONADO was intact but the RCA is occluded and fills via collaterals. EF is now 25-30%. We are seeing her for follow-up of her [place] and CHF. DATE OF SERVICE: 11/28/2019 Seem to respond pretty well yesterday to IV Lasix, and I's and O's were -700 cc. However this morning she received Lasix 40 mg IV push with minimal response and her heart rate is gradually increasing to 120 beats per minute. Her QRS complex looks a little wider on the telemetry as well. She is oxygenating reasonably well on 2 L but feels breathless. No further chest pain in the shoulder discomfort is improved. No particular a arrhythmias overnight. Echo: EF 25-30%, large areas of hypokinesis and akinesis involving the inferolateral and inferoseptal mclaughlin, moderate MR and TR Review of Systems Constitutional: Constitutional: Reports weakness ENT: Denies epistaxis Cardiovascular: Cardiovascular: Denies chest pain, Denies lightheadedness and Denies palpitations Respiratory: Respiratory: Reports dyspnea and Reports dyspnea on exertion Gastrointestinal: Gastrointestinal: Reports abdominal pain (Complains of some epigastric soreness she thinks is from her dyspnea) and Denies hematemesis Genitourinary: Genitourinary: Denies hematuria Musculoskeletal: Musculoskeletal: Reports no additional musculoskeletal complaints Integumentary/Breasts: Skin/Breast: Denies rash Neurologic: Denies confusion Psychiatric: Psychiatric: Denies confusion Exam Const: General: in distress Other: Mildly tachypneic, pleasant and alert HENMT: General nose exam: no epistaxis Eyes: EOM: EOM not intact bilaterally Neck: Neck: supple and No no JVD Resp: Auscultation: crackles and rales (Rales in both lungs 1/3 up, mild tachypnea) Cardio: Rate: regular rate and tachycardic Rhythm: regular rhythm Heart sounds:
[2019-11-28] MEDS: BUMETANIDE INJ 1 MG/4 ML VIAL 3 MG IV PUSH (13:00)
[2019-11-28 18:13] LABS: Glucose Point of Care 173 (65-105)
[2019-11-28] MEDS: HEPARIN SODIUM 5,000 UNITS/ML VIAL 5000 UNITS SUB-Q (20:18)
[2019-11-28 23:25] LABS: Glucose Point of Care 206 (65-105)
[2019-11-29] VITALS (16 sets, daily range): BP systolic 91–127; BP diastolic 40–78; PULSE 102–129; RESP 18–37; TEMP 36.4–36.9; O2SAT 93–98
[2019-11-29 01:06] LABS: Base Excess ABG 2.3 mEq/l (+/-2.0); Fractional Inspired Oxygen 44 %; HCO3 ABG 26.5 mEq/l (22.0-26.0); Oxygen Content ABG 22.5 %vol (16.0-22.0); Oxygen Saturation ABG 97.3 % (95.0-100.0); Oxyhemoglobin 96.1 % THb (90.0-100.0); PCO2 ABG 39.8 mmHg (35.0-45.0); PO2 ABG 91.4 mmHg (80.0-100.0); PO2 FiO2 Ratio Arterial Blood 2.08 %; Total Hemoglobin 16.6 g/dL (12.0-18.0); pH ABG 7.441 (7.350-7.450)
[2019-11-29 01:07] LABS: Device NASAL CANNULA; Modified Allen's Test Pass; Site Drawn LEFT RADIAL
[2019-11-29] MEDS: FUROSEMIDE INJ 40 MG/4 ML VIAL IV PUSH ×2 (01:07→11:38)
[2019-11-29 04:49] LABS: Hematocrit 49.7 % (37.0-47.0); Hemoglobin 16.6 g/dL (12.0-15.0); Mean Corpuscular HGB Conc 33.4 g/dl (32-36); Mean Corpuscular Volume 89.9 fl (80-100); Mean Platelet Volume 11.2 fl (7.4-10.4); Platelet Count Result 322 k/mm3 (150-375); Red Blood Count 5.53 M/mm3 (4.2-5.4); Red Cell Distribution Width 13.3 % (11.5-14.5); White Blood Count 21.7 K/mm3 (4.5-10.0)
[2019-11-29 05:08] LABS: Alanine Aminotransferase 116 U/L (4-35); Albumin Level 2.7 g/dL (3.5-5.1); Alkaline Phosphatase 454 U/L (38-126); Aspartate Amino Transferase 365 U/L (14-36); Bilirubin,Total 0.7 mg/dL (0.2-1.3); Blood Urea Nitrogen 39 mg/dL (7-17); Calcium 8.7 mg/dL (8.4-10.2); Carbon Dioxide 28 mmol/L (22-30); Chloride 102 mmol/L (98-107); Estimated CRCL calculation 36 ml/min; Estimated Glomerular Filt Rate 40; Glucose 155 mg/dL (65-105); Magnesium 1.9 mg/dL (1.6-2.3); Potassium 3.9 mmol/L (3.4-5.0); Sodium 133 mmol/L (137-145)
--- NOTE | 2019-11-29 07:00 | WPDINTPN ---
Progress Note: A&P Assessment and Plan (1) ST elevation (STEMI) myocardial infarction: Qualifiers: Involved coronary artery: unspecified coronary artery Qualified Code(s): I21.3 - ST elevation (STEMI) myocardial infarction of unspecified site Code(s): I21.3 - ST elevation (STEMI) myocardial infarction of unspecified site Status: Acute Assessment and Plan: Patient presented epigastric pain, 8/10 in intensity, radiating to left shoulder and left side of the chest. EKG showed ST-elevation in the lateral leads. Patient received thrombolytic treatment with tenecteplase In the ED patient was started on aspirin, clopidogrel heparin infusion. Patient continued to had pain. Patient was taken for cardiac catheterization 11/26 and underwent Complex Percutaneous coronary intervention- a) aspiration thrombectomy of the SVG graft to OM using export catheter; b) balloon angioplasty and stenting of SVG graft to OM, SVG-OM anastomosis and [place] OM branch ( 4.0 x 22 mm sirolimus eluting stent in the SVG; 2.75 x 18 mm sirolimus eluting stent at the anastomosis site; 2.5 x 22 mm sirolimus eluting stent in the [place] OM branch) ECHO 1. Severe left ventricular dysfunction is present. Ejection fraction visually is 25-30%, and measured is 33%. There is akinesis of the posterior lateral, distal inferior, proximal, mid and distal lateral mclaughlin, severe hypokinesis of the mid distal septum and mild hypokinesis of the inferior wall and mid and proximal septum. 2. Normal left ventricular size with mild concentric hypertrophy. Diastolic dysfunction is present. 3. There is moderate mitral valve regurgitation. 4. There is moderate tricuspid valve regurgitation. 5. Left atrial chamber dimension is moderately enlarged. - continue low-dose Coreg - continue aspirin, p.r.n. nitroglycerin and Brilinta - continue to hold statin due to elevated liver enzymes which are improving now (2) Uncontrolled diabetes mellitus: Code(s): E11.65 - Type 2 diabetes mellitus with hyperglycemia Status: Acute Assessment and Plan: Patient with uncontrolled diabetes, she was started on insulin infusion. insulin infusion was transition to subcutaneous insulin 11/26 improved with increased Lantus dose and will continue sliding scale - Patient's hemoglobin A1c is 13.9. (3) CHF (congestive heart failure): Code(s): I50.9 - Heart failure, unspecified Status: Acute Assessment and Plan: see echo report above patient received dose of Lasix overnight. Diuresis has been difficult due to poor cardiac output. I will continue Lasix as tolerated. Patient is fairly tachycardic with heart rate in 120s and 130 preventing use of dobutamine as an inotrope. I will order compression stockings to help with lower extremity edema (4) Elevated transaminase level: Code(s): R74.0 - Nonspecific elevation of levels of transaminase and lactic acid dehydrogenase [LDH] Status: Acute Assessment and Plan: likely secondary to cardiogenic shock. Right upper quadrant ultrasound was reviewed and unremarkable. negative hepatitis panel. continue to hold statin for now. monitor levels. I will consider starting once levels are close to normal (5) Noncompliance: Code(s): Z91.19 - Patient's noncompliance with other medical treatment and regimen Status: Acute Assessment and Plan: Patient is noncompliant with her medical regimen as well as Doctor follow-ups due to financial /insurance issues. - Will have care coordination and social media manager discuss with the patient and assist as required Additional Plan discussed with patient updated with her condition and plan of care. continue aggressive incentive spirometry heparin subcutaneous for DVT prophylaxis to be started today. Out of bed and up in chair today Code status: I spoke to patient in detail and explained the the seriousne
[2019-11-29 07:46] LABS: Add Urine Microscopic? YES; Appearance Urine Cloudy (Clear); Bacteria Urine 1+ /hpf; Bilirubin Urine Negative (Negative); Blood Urine 3+ (Negative); Color Urine Yellow (Yellow); Glucose Urine UA 1+ mg/dL (Negative); Ketones Urine Negative (Negative); Leukocyte Esterase Ur 3+ LEU/UL (Negative); Mucus Urine Moderate /lpf; Nitrate Urine Positive (Negative); Protein Urine 2+ mg/dL (Negative); RBC Urine >75 /hpf (0-2); Specific Grav Ur 1.018 (1.001-1.035); Squamous Epithelial Cell Urine Rare /hpf (Few); Urobilinogen Urine Negative mg/dL (<2.0); WBC Clumps Urine Present /HPF; WBC Urine >75 /hpf
[2019-11-29] MEDS: TICAGRELOR 90 MG TABLET PO ×2 (09:34→21:08)
[2019-11-29] MEDS: carvediloL 3.125 MG TABLET PO (09:34)
[2019-11-29] MEDS: HEPARIN SODIUM 5,000 UNITS/ML VIAL 5000 UNITS SUB-Q ×2 (09:34→21:08)
[2019-11-29] MEDS: INSULIN DETEMIR 100 UNITS/ML 30 UNITS SUB-Q ×2 (09:34→21:10)
[2019-11-29] MEDS: ASPIRIN 81 MG ENTERIC TABLET PO (09:34)
--- NOTE | 2019-11-29 11:31 | PCDIET ---
ICU Rounding Note: Pt current nutrition is Heart Healthy. Nutrition recommendation: No new recommendations Last recorded weight is 86.5 kg. Bowel Motility: Labs Reviewed: Na 133, Glu 155, ALT and AST elevated Meds Noted: Lasix Additional Notes: Pt I&O adequate. Pt had Hgb A1C of 13.9% recent BG was 155 on heart healthy diet. Intake is 50-75%. Had 3 stents placed, HR elevated, in ICU to monitor. Following daily in ICU rounds.
[2019-11-29 11:43] LABS: Glucose Point of Care 199 (65-105)
[2019-11-29 16:58] LABS: Glucose Point of Care 151 (65-105)
--- NOTE | 2019-11-29 17:02 | PM.PNCARD ---
Progress Note: A&P Assessment and Plan (1) ST elevation (STEMI) myocardial infarction: Qualifiers: Involved coronary artery: unspecified coronary artery Qualified Code(s): I21.3 - ST elevation (STEMI) myocardial infarction of unspecified site Code(s): I21.3 - ST elevation (STEMI) myocardial infarction of unspecified site Status: Acute Assessment and Plan: Had STEMI 11/27/2019 secondary to occlusion of the SVG to the large OM, treated with thrombolytics and, later, stenting of the SVG and OM with 3 stents. Appears to have had a large amount of myocardial damage. QRS looks a little wider, may be rate related but to be a poor prognositic sign as well Continue aspirin and Brilinta, Started on low-dose carvedilol; will switch to metoprolol 12.5 mg BID to see if that helps w/ tachycardia. Will transfer to IMU. Start Ph Tx. (2) CHF (congestive heart failure): Code(s): I50.9 - Heart failure, unspecified Status: Acute Assessment and Plan: Ischemic cardiomyopathy EF 25-30%. In CHF not responding well to IV diuretics. Soft blood pressure does not give us much room to work. However, tachycardia is a little better today. Hesitant to use dobutamine 2nd tachycardia. Will add low-dose ACEI. lisinopril 2.5 mg q8H (to stagger w/ metoprolol). Doubt her BP would allow Entresto at this point. Furosemide 40 mg po qd. Daily CXR, BMP. (3) UTI (urinary tract infection): Code(s): N39.0 - Urinary tract infection, site not specified Status: Acute Assessment and Plan: C&S pending. EMILI Cardona. Started ceftriazone. Consult hospitalist to help w/ UTI tx and DM. (4) Elevated transaminase level: Code(s): R74.0 - Nonspecific elevation of levels of transaminase and lactic acid dehydrogenase [LDH] Status: Acute Assessment and Plan: Elevated at liver enzymes noted, possibly secondary to shock liver. Statin DC'd. US neg Hepatitis screen pending Improving. (5) Uncontrolled diabetes mellitus: Code(s): E11.65 - Type 2 diabetes mellitus with hyperglycemia Status: Acute Assessment and Plan: DKA resolved, blood sugars doing better. Consult hospitalist to help w/ DM tx. Subjective Date/time seen: 11/29/19 17:02 Interval history: 69-year-old female with history of CABG, admitted 11/27/2019 with an acute inferolateral PA and received thrombolytics therapy. She later went to the labor mediator for thrombectomy of the OM saphenous vein graft and stenting of the SVG, the anastomosis and OM 1. The CORONADO was intact but the RCA is occluded and fills via collaterals. EF is now 25-30%. We are seeing her for follow-up of her PA and CHF. 11/28/2019 visit: Seem to respond pretty well yesterday to IV Lasix, and I's and O's were -700 cc. However this morning she received Lasix 40 mg IV push with minimal response and her heart rate is gradually increasing to 120 beats per minute. Her QRS complex looks a little wider on the telemetry as well. She is oxygenating reasonably well on 2 L but feels breathless. No further chest pain in the shoulder discomfort is improved. No particular a arrhythmias overnight. Date of service: 11/29/2019: Patient has remained tachycardic, heart rates generally in the 120s and short of breath, but this afternoon was sitting up in a chair and feeling better, heart rate 106-110. O2 sat on 3 L is good. Still feels SOB but better sitting up and no chest pain, nausea, dizziness. UA consistent with UTI and culture sent. Spoke w/ son Khris at [phone]: Pt still quite sick, not out of the gilman yet, significant heart damage but has been stable which is good. Echo: EF 25-30%, large areas of hypokinesis and akinesis involving the inferolateral and inferoseptal mclaughlin, moderate MR and TR Review of Systems Constitutional: C
--- NOTE | 2019-11-29 17:27 | PC.NURSE ---
This patient, Lisa Aparicio, was transferred to [facility] [place] on 11/29/19 at 1710. Personal belongings sent with patient. Report given to Arnulfo HENRIQUEZ. Appropriate documentation sent with patient.
[2019-11-29 21:00] LABS: Glucose Point of Care 166 (65-105)
[2019-11-29] MEDS: lisinopriL 2.5 MG TABLET PO (21:07)
[2019-11-29] MEDS: METOPROLOL TARTRATE 12.5 MG TABLET PO (21:08)
--- NOTE | 2019-11-29 21:45 | PM.IMCN ---
Assessment and Plan Assessment and plan (1) UTI (urinary tract infection): Code(s): N39.0 - Urinary tract infection, site not specified Status: Acute Assessment and Plan: Continue Rocephin and await urine cultures. Will repeat CBC in a.m.. (2) Uncontrolled diabetes mellitus: Code(s): E11.65 - Type 2 diabetes mellitus with hyperglycemia Status: Acute Assessment and Plan: Continue Levemir and sliding scale insulin. Glucoses have improved significantly. The importance of adherence to medication therapy was discussed in detail. She will need a dilated eye exam at discharge. (3) BMI 34.0-34.9,adult: Code(s): Z68.34 - Body mass index (BMI) 34.0-34.9, adult Status: Acute Assessment and Plan: Patient will need outpatient sleep study on discharge. (4) CHF (congestive heart failure): Code(s): I50.9 - Heart failure, unspecified Status: Acute Assessment and Plan: Management per primary service. (5) ST elevation (STEMI) myocardial infarction: Qualifiers: Involved coronary artery: unspecified coronary artery Qualified Code(s): I21.3 - ST elevation (STEMI) myocardial infarction of unspecified site Code(s): I21.3 - ST elevation (STEMI) myocardial infarction of unspecified site Status: Acute Assessment and Plan: Management per primary service. HPI Data of Consult Consult date: 11/29/19 Requesting Physician: Griffin Salinas MD Primary Care Provider: UNKNOWN,DOCTOR Consult Narrative Narrative: Date and time of patient contact: 11/29/2019 at 9:45 p.m. Lisa Aparicio is a 69 year old female with a past medical history of medical noncompliance who presented to the ER on 11/26/2019 with a STEMI and uncontrolled diabetes heard hospitals are now consulted on due to UTI and diabetes. Patient was admitted on the to the ICU in her glucoses were brought under control with insulin infusion and she was transitioned to Levemir and basal bolus insulin. Her hemoglobin A1c was 13.9. She had an echocardiogram which demonstrated EF of 25-30% with moderate mitral valve and tricuspid valve regurgitation. She underwent cardiac catheterization with aspiration thrombectomy of saphenous vein graft to obtuse marginal and balloon angioplasty with stenting of the saphenous vein graft to obtuse marginal, saphenous vein graft to obtuse marginal anastomosis and tunica-biloxi obtuse marginal branch on 11/27/2019. The patient remained in ICU until this this morning when she was transferred to IMU a today. Patient's hospital course has been complicated by tachycardic and low blood pressures limiting the ability for addition of cardiac medications and adequate diuresis. Patient did have elevated transaminases thought to be due to cardiogenic shock. The patient's liver enzymes have been improving. To the ER she had mild leukocytosis. Her white count has been increasing since admission. She does admit to having dysuria, increased urinary frequency and urgency as well as increased urinary incontinence over the the course the last 3-4 weeks. She denies any fevers or chills. She has had decreased oral intake due to not feeling well. She denies having any cough or congestion. She had noticed increased blurriness of her vision over the last couple of months. She had a prior left cataract extraction but her right cataract remains in place. She has noticed a couple of hours of increased shortness of breath but when I arrived in the room the patient's oxygen cannula was sitting above her nose instead of and her nares. She denies any recent travel or ill contacts. With a concern over COVID-19 her daughter has been ordering her groceries to be delivered to her house. She has not left the house in over a month. She reports that she has not taken any of her medications in the last 2 years due to financial restraints. Review of Systems Review of Systems: Narrative: 12 systems
[2019-11-30] VITALS (19 sets, daily range): BP systolic 82–111; BP diastolic 44–60; PULSE 90–108; RESP 16–26; TEMP 35.8–36.6; O2SAT 18–100; BMI 34.4
[2019-11-30 04:43] LABS: Hematocrit 45.7 % (37.0-47.0); Hemoglobin 15.2 g/dL (12.0-15.0); Mean Corpuscular HGB Conc 33.3 g/dl (32-36); Mean Corpuscular Hemoglobin 30.2 pg (26-34); Mean Corpuscular Volume 90.9 fl (80-100); Mean Platelet Volume 11.8 fl (7.4-10.4); Platelet Count Result 340 k/mm3 (150-375); Red Blood Count 5.03 M/mm3 (4.2-5.4); Red Cell Distribution Width 13.2 % (11.5-14.5); White Blood Count 17.7 K/mm3 (4.5-10.0)
[2019-11-30 05:11] LABS: Alanine Aminotransferase 87 U/L (4-35); Albumin Level 2.5 g/dL (3.5-5.1); Alkaline Phosphatase 503 U/L (38-126); Aspartate Amino Transferase 174 U/L (14-36); Bilirubin,Total 0.6 mg/dL (0.2-1.3); Blood Urea Nitrogen 50 mg/dL (7-17); Calcium 8.6 mg/dL (8.4-10.2); Carbon Dioxide 30 mmol/L (22-30); Chloride 101 mmol/L (98-107); Estimated CRCL calculation 39 ml/min; Estimated Glomerular Filt Rate 44; Glucose 107 mg/dL (65-105); Potassium 3.6 mmol/L (3.4-5.0); Sodium 131 mmol/L (137-145)
[2019-11-30 07:57] LABS: Glucose Point of Care 86 (65-105)
--- NOTE | 2019-11-30 08:14 | P.CDI_ITS ---
CDI Query Clarification Request -CHF status acute, In CHF not responding well to IV diuretics and Ischemic cardiomyopathy EF 25-30% has been documented. 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
--- NOTE | 2019-11-30 09:27 | PM.PNCARD ---
Progress Note: A&P Additional Plan Patient prognosis is poor given her low ejection fraction and pulmonary congestion following emergency PCI. I will adjust her lisinopril dosage I am not sure why this 8 day is being given on a q.8 hours schedule. In addition I believe her beta-malorie should be transition to carvedilol given her very low ejection fraction and pulmonary congestion. Prognosis is very poor in my opinion given her extensive infarction and low ejection fraction. It is very sad that she was not taking any medication prior to admission because she stated she could not afford any medicine of any sort for at least 2 or 3 years. Time Spent With Patient Time with patient: 15 - 25 minutes Subjective Date/time seen: Date of service: 11/30/19 09:27 Interval history: Follow-up visit for 69-year-old white female with acute myocardial infarction, previous CABG, left bundle branch block and severe ischemic cardiomyopathy. Patient underwent PCI of totally occluded vein graft to the circumflex following admission. According to the notes her LAD is supplied by her patent left mammary graft and the right coronary artery is totally occluded. The result of this is that left ventricular ejection fraction is very low. She was on no medication for her heart disease prior to coming in the hospital because she stated she could not afford any medication. She is seated in bed and appears to be mildly short of breath but is oxygenating well. Systolic blood pressure is in the 90s staff on the floor asking whether they should give her her medications or not. Regimen is somewhat unusual she is currently ordered to receive lisinopril on a q.8 hours schedule also metoprolol and furosemide. Chest x-ray today demonstrates bilateral pleural effusions and moderate diffuse congestion. Exam Const: General: no acute distress Other: Obese elderly lady seated on the edge of the bed appears to be comfortable with nasal cannula oxygen in place HENMT: Mouth: Yes moist mucous membranes Eyes: Sclera: sclerae normal Pupils: Equal, round and reactive pupils present Neck: Neck: supple and no JVD Thyroid: thyroid normal Resp: Effort & Inspection: normal respiratory effort Other: Dullness at the bases bilaterally also bibasilar moist pulmonary rales Cardio: Rate: regular rate Rhythm: regular rhythm GI: Auscultation: normal bowel sounds Skin: General skin exam: normal color Neuro: Cognition (Neuro): normal cognition Extrem: General: normal to inspection Objective Data Vital Signs Vital Signs: Vital Signs - 24 hr 11/29/19 10:00 11/29/19 12:00 11/29/19 13:20 Temperature 36.5 C Pulse Rate 120 H 117 H Pulse Rate [With Activity During Therapy Session] 117 H Respiratory Rate 31 H 33 H Blood Pressure 113/78 94/74 L Pulse Oximetry 96 93 Pulse Oximetry [With Activity During Therapy Session] 93 11/29/19 14:00 11/29/19 16:00 11/29/19 17:30 Temperature 36.6 C 36.4 C Pulse Rate 110 H 108 H 111 H Pulse Rate [With Activity During Therapy Session] Respiratory Rate 24 H 24 H 18 Blood Pressure 91/40 L 96/67 L 106/66 Pulse Oximetry 96 97 98 Pulse Oximetry [With Activity During Therapy Session] 11/29/19 18:00 11/29/19 19:49 11/29/19 20:00 Temperature 36.4 C Pulse Rate 120 H 120 H 115 H Pulse Rate [With Activity During Therapy Session] Respiratory Rate 18 Blood Pressure 92/67 L Pulse Oximetry 95 Pulse Oximetry [With Activity During Therapy Session] 11/29/19 22:00 11/29/19 23:51 11/30/19 01:50 Temperature 36.4 C L Pulse Rate 102 H 110 H Pulse Rate [With Activity During Therapy Session] Respiratory Rate 24 H Blood Pressure 108/61 95/44 L Pulse Oximetry 95 Pulse Oximetry [With Activity During Therapy Session] 11/30/19 02:00 11/30/19 04:00 11/30/19 05:46 Temperature 36.6 C Pulse Rate 105 H 104 H 102 H Pulse Rate [With Activity During Therapy Session] Respiratory Rate 22 H Blood Pressure 97
[2019-11-30] MEDS: carvediloL 6.25 MG TABLET PO ×2 (10:49→20:37)
[2019-11-30] MEDS: TICAGRELOR 90 MG TABLET PO ×2 (10:49→20:38)
[2019-11-30] MEDS: BUMETANIDE INJ 1 MG/4 ML VIAL IV PUSH (10:50)
[2019-11-30] MEDS: HEPARIN SODIUM 5,000 UNITS/ML VIAL 5000 UNITS SUB-Q ×2 (10:50→20:38)
[2019-11-30] MEDS: INSULIN DETEMIR 100 UNITS/ML 30 UNITS SUB-Q (10:50)
[2019-11-30] MEDS: ASPIRIN 81 MG ENTERIC TABLET PO (10:50)
[2019-11-30] MEDS: lisinopriL 2.5 MG TABLET PO (10:57)
[2019-11-30 11:44] LABS: Glucose Point of Care 215 (65-105)
[2019-11-30] MEDS: INSULIN ASPART (*BKC) 100 UNITS/ML SUB-Q (12:01)
[2019-11-30] MEDS: metFORMIN HCL 500 MG TABLET PO (16:41)
[2019-11-30 16:48] LABS: Glucose Point of Care 176 (65-105)
--- NOTE | 2019-11-30 16:52 | PM.IMPN ---
Progress Note: A&P Assessment and Plan (1) UTI (urinary tract infection): Code(s): N39.0 - Urinary tract infection, site not specified Status: Acute Assessment and Plan: Continue Rocephin and await urine cultures. Will repeat CBC in a.m.. 11/30/19 16:52 Patient is 69-year-old female with history of CABG, hypertension, coronary artery disease diabetes patient had not been taking her medication for 2-3 years for financial problem presented emergency department with complaint of epigastric pain on route to ER EMS calls STEMI patient was seen by tree loader meat and had a emergent catheterization which showed patient has a extensive coronary artery disease requiring stents is found to have severe systolic dysfunction with ejection fraction of 20-30 %, patient also has a poorly controlled diabetes with hemoglobin A1c of 13.9, discussed with the coding educator, patient also has a visual problem unable to use syringes for insulin, we have started the patient on metformin 500 mg b.i.d. Amaryl 2 mg q.day, and Lantus 20 units a.m. patient will require diabetic eye exam upon discharge, (2) Uncontrolled diabetes mellitus: Code(s): E11.65 - Type 2 diabetes mellitus with hyperglycemia Status: Acute Assessment and Plan: Continue Levemir and sliding scale insulin. Glucoses have improved significantly. The importance of adherence to medication therapy was discussed in detail. She will need a dilated eye exam at discharge. (3) BMI 34.0-34.9,adult: Code(s): Z68.34 - Body mass index (BMI) 34.0-34.9, adult Status: Acute Assessment and Plan: Patient will need outpatient sleep study on discharge. (4) CHF (congestive heart failure): Code(s): I50.9 - Heart failure, unspecified Status: Acute Assessment and Plan: Management per primary service. (5) ST elevation (STEMI) myocardial infarction: Qualifiers: Involved coronary artery: unspecified coronary artery Qualified Code(s): I21.3 - ST elevation (STEMI) myocardial infarction of unspecified site Code(s): I21.3 - ST elevation (STEMI) myocardial infarction of unspecified site Status: Acute Assessment and Plan: Management per primary service. Subjective Date/time seen: 11/30/19 16:52 Patient is 69-year-old female with history of CABG, hypertension, coronary artery disease diabetes patient had not been taking her medication for 2-3 years for financial problem presented emergency department with complaint of epigastric pain on route to ER EMS calls STEMI patient was seen by tree loader meat and had a emergent catheterization which showed patient has a extensive coronary artery disease requiring stents is found to have severe systolic dysfunction with ejection fraction of 20-30 %, patient also has a poorly controlled diabetes with hemoglobin A1c of 13.9, discussed with the coding educator, patient also has a visual problem unable to use syringes for insulin, we have started the patient on metformin 500 mg b.i.d. Amaryl 2 mg q.day, and Lantus 20 units a.m. patient will require diabetic eye exam upon discharge, Review of Systems Review of Systems: All systems reviewed & are unremarkable except as noted in HPI and below Exam Narrative: Exam Narrative: Elderly frail Const: General: comfortable and no acute distress HENMT: General nose exam: Normal nares present Mouth: Yes moist mucous membranes Eyes: General: appearance normal, both eyes and all related structures Sclera: sclerae normal Neck: Neck: supple Resp: Effort & Inspection: normal respiratory effort Auscultation: clear to auscultation bilaterally Cardio: Rate: regular rate Rhythm: regular rhythm GI: Auscultation: normal bowel sounds Skin: General skin exam: normal color Neuro: Speech: normal speech Sensory Exam: normal sensation Extrem: General: normal to inspection Psych: Affect: Anxious affect present Objective Data Vital Signs
[2019-11-30] MEDS: MORPHINE SULFATE 2 MG/ML INJ IV PUSH (22:38)
[2019-11-30] MEDS: ONDANSETRON INJ 4 MG/2 ML VIAL IV PUSH (22:39)
[2019-12-01] VITALS (21 sets, daily range): BP systolic 82–97; BP diastolic 37–65; PULSE 72–102; RESP 16–20; TEMP 35.6–36.4; O2SAT 92–100
[2019-12-01 01:45] LABS: Glucose Point of Care 66 (65-105)
[2019-12-01 02:05] LABS: Glucose Point of Care 68 (65-105)
--- NOTE | 2019-12-01 02:25 | PC.NURSE ---
Pt's blood sugar checked at 0136, resulted at 66. Pt rechecked after given apple juice and indu crackers(having fallen asleep before finishing indu crackers), resulted 68. Rechecked after finishing indu crackers, resulted 89.
[2019-12-01 04:40] LABS: Hematocrit 44.9 % (37.0-47.0); Hemoglobin 14.7 g/dL (12.0-15.0); Mean Corpuscular HGB Conc 32.7 g/dl (32-36); Mean Corpuscular Hemoglobin 30.2 pg (26-34); Mean Corpuscular Volume 92.4 fl (80-100); Mean Platelet Volume 11.6 fl (7.4-10.4); Platelet Count Result 389 k/mm3 (150-375); Red Blood Count 4.86 M/mm3 (4.2-5.4); Red Cell Distribution Width 13.2 % (11.5-14.5); White Blood Count 14.5 K/mm3 (4.5-10.0)
[2019-12-01 04:47] LABS: Glucose Point of Care 104 (65-105)
[2019-12-01 06:44] LABS: Alanine Aminotransferase 75 U/L (4-35); Albumin Level 2.4 g/dL (3.5-5.1); Alkaline Phosphatase 668 U/L (38-126); Aspartate Amino Transferase 139 U/L (14-36); Bilirubin,Total 0.4 mg/dL (0.2-1.3); Blood Urea Nitrogen 57 mg/dL (7-17); Calcium 8.3 mg/dL (8.4-10.2); Carbon Dioxide 28 mmol/L (22-30); Chloride 99 mmol/L (98-107); Estimated CRCL calculation 36 ml/min; Estimated Glomerular Filt Rate 40; Glucose 113 mg/dL (65-105); Potassium 3.5 mmol/L (3.4-5.0); Sodium 130 mmol/L (137-145)
[2019-12-01 08:18] LABS: Glucose Point of Care 89 (65-105)
[2019-12-01 08:18] LABS: Glucose Point of Care 126 (65-105)
[2019-12-01] MEDS: GLIMEPIRIDE 2 MG TABLET PO (09:18)
[2019-12-01] MEDS: metFORMIN HCL 500 MG TABLET PO ×2 (09:18→16:17)
[2019-12-01] MEDS: TICAGRELOR 90 MG TABLET PO ×2 (09:18→20:38)
[2019-12-01] MEDS: ASPIRIN 81 MG ENTERIC TABLET PO (09:20)
[2019-12-01] MEDS: FUROSEMIDE 40 MG TABLET PO (09:20)
[2019-12-01] MEDS: carvediloL 6.25 MG TABLET PO (09:22)
[2019-12-01] MEDS: HEPARIN SODIUM 5,000 UNITS/ML VIAL 5000 UNITS SUB-Q ×2 (09:24→20:39)
[2019-12-01] MEDS: INSULIN GLARGINE (*BKC) 100 UNITS/ML 20 UNITS SUB-Q (09:32)
--- NOTE | 2019-12-01 09:53 | PM.PNCARD ---
Progress Note: A&P Assessment and Plan (1) ST elevation (STEMI) myocardial infarction: Qualifiers: Involved coronary artery: unspecified coronary artery Qualified Code(s): I21.3 - ST elevation (STEMI) myocardial infarction of unspecified site Code(s): I21.3 - ST elevation (STEMI) myocardial infarction of unspecified site Status: Acute Assessment and Plan: Had STEMI 11/27/2019 secondary to occlusion of the SVG to the large OM, treated with thrombolytics and, later, stenting of the SVG and OM with 3 stents. Continue aspirin and Brilinta, low-dose beta-malorie, low-dose beta-malorie, and low-dose LORENE-inhibitor. Due to transaminitis, patient is currently not on statins. Her liver enzymes are trending down was. Will continue to monitor liver enzymes, and initiate statin as soon as able. PT OT. Patient would benefit from inpatient rehab. (2) CHF (congestive heart failure): Code(s): I50.9 - Heart failure, unspecified Status: Acute Assessment and Plan: Ischemic cardiomyopathy EF 25-30%. Continue diuresis with Furosemide Monitor BMP (3) UTI (urinary tract infection): Code(s): N39.0 - Urinary tract infection, site not specified Status: Acute Assessment and Plan: Started ceftriazone. Consult hospitalist to help w/ UTI tx and DM. (4) Elevated transaminase level: Code(s): R74.0 - Nonspecific elevation of levels of transaminase and lactic acid dehydrogenase [LDH] Status: Acute Assessment and Plan: Elevated at liver enzymes noted, possibly secondary to shock liver. Statin DC'd. US neg Improving. (5) Uncontrolled diabetes mellitus: Code(s): E11.65 - Type 2 diabetes mellitus with hyperglycemia Status: Acute Assessment and Plan: DKA resolved, blood sugars doing better. Consulted hospitalist to help w/ DM tx. Subjective Date/time seen: 12/01/19 09:53 Date of service: 12/01/2019 Chief complaint: Chest discomfort last night Interval history: Patient had chest discomfort last night, which is resolved now. This morning, patient states that she is feeling better. She does not have dyspnea at rest. On telemetry, she is in sinus rhythm at present. Exam Const: General: no acute distress, alert and awake HENMT: Head: normocephalic and atraumatic Ears: hearing grossly normal bilaterally and external ears normal General nose exam: Normal external nose present and no epistaxis Face and sinus: normal facial exam and no ecchymosis Mouth: Yes tongue normal and Yes moist mucous membranes Teeth and gingiva: dentition normal Eyes: Conjunctivae: conjunctivae normal Sclera: sclerae normal Pupils: Equal, round and reactive pupils present EOM: EOMs intact bilaterally Neck: Neck: normal visual inspection, supple and no JVD Thyroid: thyroid normal Carotids: normal carotid upstroke Resp: Effort & Inspection: normal respiratory effort and able to speak in complete sentences Other: Diminished breath sounds Cardio: Rate: regular rate Rhythm: regular rhythm Heart sounds: S1 normal heart sound present, S2 normal heart sound present and Murmur heart sound present GI: Inspection: normal to inspection GI Palp: No abdominal tenderness Auscultation: normal bowel sounds Skin: Other: no rash on exposed areas, no cyanosis Neuro: Cranial nerves: Yes Equal, round and reactive pupils present and Yes Normal hearing present Other: alert, oriented, no major focal deficits on gross neurological examination Extrem: Other: Mild edema, no cyanosis, no major deformities Psych: Appearance: grossly normal Mental Status: mental status grossly normal Objective Data Vital Signs Vital Signs: Vital Signs - 24 hr 11/30/19 10:00 11/30/19 10:49 11/30/19 12:00 Temperature Pulse Rate 102 H 101 H 93 Respiratory
[2019-12-01 11:46] LABS: Glucose Point of Care 200 (65-105)
--- NOTE | 2019-12-01 12:47 | PM.IMPN ---
Progress Note: A&P Assessment and Plan (1) UTI (urinary tract infection): Code(s): N39.0 - Urinary tract infection, site not specified Status: Acute Assessment and Plan: 12/01/19 12:47 Urine is growing E coli and Klebsiella pneumonia pending sensitivity will continue Rocephin for now patient is clinically stable.. Patient is 69-year-old female with history of CABG, hypertension, coronary artery disease diabetes patient had not been taking her medication for 2-3 years for financial problem presented emergency department with complaint of epigastric pain on route to ER EMS calls STEMI patient was seen by valet attendant and had a emergent catheterization which showed patient has a extensive coronary artery disease requiring stents is found to have severe systolic dysfunction with ejection fraction of 20-30 %, patient also has a poorly controlled diabetes with hemoglobin A1c of 13.9, discussed with the asthma educator, patient also has a visual problem unable to use syringes for insulin, we have started the patient on metformin 500 mg b.i.d. Amaryl 2 mg q.day, and Lantus 20 units a.m. patient will require diabetic eye exam upon discharge, this morning patient blood sugars are close to 100 with to continue present management and monitor (2) Uncontrolled diabetes mellitus: Code(s): E11.65 - Type 2 diabetes mellitus with hyperglycemia Status: Acute Assessment and Plan: Continue Levemir and sliding scale insulin. Glucoses have improved significantly. The importance of adherence to medication therapy was discussed in detail. She will need a dilated eye exam at discharge. (3) BMI 34.0-34.9,adult: Code(s): Z68.34 - Body mass index (BMI) 34.0-34.9, adult Status: Acute Assessment and Plan: Patient will need outpatient sleep study on discharge. (4) CHF (congestive heart failure): Code(s): I50.9 - Heart failure, unspecified Status: Acute Assessment and Plan: Management per primary service. (5) ST elevation (STEMI) myocardial infarction: Qualifiers: Involved coronary artery: unspecified coronary artery Qualified Code(s): I21.3 - ST elevation (STEMI) myocardial infarction of unspecified site Code(s): I21.3 - ST elevation (STEMI) myocardial infarction of unspecified site Status: Acute Assessment and Plan: Management per primary service. Subjective Date/time seen: 12/01/19 12:47 Urine is growing E coli and Klebsiella pneumonia pending sensitivity will continue Rocephin for now patient is clinically stable.. Patient is 69-year-old female with history of CABG, hypertension, coronary artery disease diabetes patient had not been taking her medication for 2-3 years for financial problem presented emergency department with complaint of epigastric pain on route to ER EMS calls STEMI patient was seen by valet attendant and had a emergent catheterization which showed patient has a extensive coronary artery disease requiring stents is found to have severe systolic dysfunction with ejection fraction of 20-30 %, patient also has a poorly controlled diabetes with hemoglobin A1c of 13.9, discussed with the asthma educator, patient also has a visual problem unable to use syringes for insulin, we have started the patient on metformin 500 mg b.i.d. Amaryl 2 mg q.day, and Lantus 20 units a.m. patient will require diabetic eye exam upon discharge, this morning patient blood sugars are close to 100 with to continue present management and monitor Review of Systems Review of Systems: All systems reviewed & are unremarkable except as noted in HPI and below Exam Narrative: Exam Narrative: Elderly frail Const: General: comfortable and no acute distress HENMT: General nose exam: Normal nares present Mouth: Yes moist mucous membranes Eyes: General: appearance normal, both eyes and all related structures Sclera: sclerae normal Neck: Neck: supple Resp: Effort & Inspec
[2019-12-01 17:18] LABS: Glucose Point of Care 181 (65-105)
[2019-12-01 20:36] LABS: Glucose Point of Care 162 (65-105)
[2019-12-01] MEDS: carvediloL 3.125 MG TABLET PO (20:39)
[2019-12-01] MEDS: TOLNAFTATE 1% POWDER 45 GM BTL 1 APPLIC TOPICAL (20:42)
[2019-12-02] VITALS (18 sets, daily range): BP systolic 90–102; BP diastolic 54–74; PULSE 91–107; RESP 12–22; TEMP 36.1–36.6; O2SAT 97–100
[2019-12-02] MEDS: MORPHINE SULFATE 2 MG/ML INJ IV PUSH (00:16)
--- NOTE | 2019-12-02 00:30 | ECG_ITS ---
Measurements Intervals Vincent Rate: 96 P: -21 MN: 106 QRS: 41 QRSD: 126 T: 0 QT: 384 QTc: 485 Interpretive Statements SINUS RHYTHM WITH SHORT MN INTERVAL INTRAVENTRICULAR CONDUCTION DELAY LOW VOLTAGE- LIMB LEADS BORDERLINE R WAVE PROGRESSION, ANTERIOR LEADS BORDERLINE ST-T WAVE ABNORMALITY- INF/LAT LEADS BASELINE ARTIFACT- I, AVR, AVL, AVF, V4-V6 BORDERLINE ECG Electronically Signed On 12-02-2019 16:46:10 CDT by Elgin Maurice D.O.
[2019-12-02 04:43] LABS: Hematocrit 43.6 % (37.0-47.0); Hemoglobin 14.4 g/dL (12.0-15.0); Mean Corpuscular Hemoglobin 30.3 pg (26-34); Mean Corpuscular Volume 91.6 fl (80-100); Mean Platelet Volume 11.4 fl (7.4-10.4); Platelet Count Result 382 k/mm3 (150-375); Red Blood Count 4.76 M/mm3 (4.2-5.4); Red Cell Distribution Width 13.1 % (11.5-14.5); White Blood Count 12.4 K/mm3 (4.5-10.0)
[2019-12-02 04:57] LABS: Blood Urea Nitrogen 51 mg/dL (7-17); Calcium 8.2 mg/dL (8.4-10.2); Carbon Dioxide 29 mmol/L (22-30); Chloride 100 mmol/L (98-107); Estimated CRCL calculation 39 ml/min; Estimated Glomerular Filt Rate 44; Glucose 158 mg/dL (65-105); Potassium 3.8 mmol/L (3.4-5.0); Sodium 132 mmol/L (137-145)
[2019-12-02 05:03] LABS: Alanine Aminotransferase 93 U/L (4-35); Albumin Level 2.5 g/dL (3.5-5.1); Alkaline Phosphatase 1188 U/L (38-126); Aspartate Amino Transferase 177 U/L (14-36); Bilirubin,Total 0.5 mg/dL (0.2-1.3)
[2019-12-02 06:28] LABS: Alanine Aminotransferase 92 U/L (4-35); Albumin Level 2.5 g/dL (3.5-5.1); Alkaline Phosphatase 1188 U/L (38-126); Aspartate Amino Transferase 185 U/L (14-36); Bilirubin,Total 0.5 mg/dL (0.2-1.3)
[2019-12-02] MEDS: GLIMEPIRIDE 2 MG TABLET PO (08:34)
[2019-12-02] MEDS: ASPIRIN 81 MG ENTERIC TABLET PO (08:34)
[2019-12-02] MEDS: carvediloL 3.125 MG TABLET PO ×2 (08:35→21:43)
[2019-12-02] MEDS: metFORMIN HCL 500 MG TABLET PO ×2 (08:35→17:27)
[2019-12-02] MEDS: FUROSEMIDE 40 MG TABLET PO (08:35)
[2019-12-02] MEDS: TICAGRELOR 90 MG TABLET PO ×2 (08:35→21:43)
[2019-12-02] MEDS: HEPARIN SODIUM 5,000 UNITS/ML VIAL 5000 UNITS SUB-Q ×2 (08:36→21:43)
[2019-12-02] MEDS: INSULIN GLARGINE (*BKC) 100 UNITS/ML 20 UNITS SUB-Q (08:41)
[2019-12-02] MEDS: TOLNAFTATE 1% POWDER 45 GM BTL 1 APPLIC TOPICAL ×2 (08:43→21:43)
[2019-12-02 09:23] LABS: Glucose Point of Care 139 (65-105)
--- NOTE | 2019-12-02 10:59 | PM.PNCARD ---
Progress Note: A&P Assessment and Plan (1) ST elevation (STEMI) myocardial infarction: Qualifiers: Involved coronary artery: unspecified coronary artery Qualified Code(s): I21.3 - ST elevation (STEMI) myocardial infarction of unspecified site Code(s): I21.3 - ST elevation (STEMI) myocardial infarction of unspecified site Status: Acute Assessment and Plan: Had STEMI 11/27/2019 secondary to occlusion of the SVG to the large OM, treated with thrombolytics and, later, stenting of the SVG and OM with 3 stents. Continue aspirin and Brilinta, low-dose beta-malorie, low-dose beta-malorie (dose of med carvedilol decreased to 3.125 b.i.d. due to relatively low blood pressure), and low-dose LORENE-inhibitor. If/when patient's blood pressure allows, would add spironolactone 25 mg p.o. daily in light of patient's severe LV dysfunction post [place]. Due to transaminitis, patient is currently not on statins. Will continue to monitor liver enzymes, and initiate statin as soon as able. PT OT. Patient would benefit from inpatient rehab. (2) CHF (congestive heart failure): Code(s): I50.9 - Heart failure, unspecified Status: Acute Assessment and Plan: Ischemic cardiomyopathy EF 25-30%. Continue diuresis with Furosemide Monitor BMP (3) UTI (urinary tract infection): Code(s): N39.0 - Urinary tract infection, site not specified Status: Acute Assessment and Plan: Started ceftriazone. Consult hospitalist to help w/ UTI tx and DM. (4) Elevated transaminase level: Code(s): R74.0 - Nonspecific elevation of levels of transaminase and lactic acid dehydrogenase [LDH] Status: Acute Assessment and Plan: Elevated at liver enzymes noted, possibly secondary to shock liver. Statin DC'd. US neg Improving. (5) Uncontrolled diabetes mellitus: Code(s): E11.65 - Type 2 diabetes mellitus with hyperglycemia Status: Acute Assessment and Plan: DKA resolved, blood sugars doing better. Consulted hospitalist to help w/ DM tx. Subjective Date/time seen: 12/02/19 10:59 Date of service: 12/02/19 Chief complaint: Chest discomfort last night Interval history: Patient had mild recurrent chest discomfort last night, which is resolved now. This morning, patient states that she is feeling better. She does not have dyspnea at rest. On telemetry, she is in sinus rhythm at present. Exam Const: General: no acute distress, alert and awake HENMT: Head: normocephalic and atraumatic Ears: hearing grossly normal bilaterally and external ears normal General nose exam: Normal external nose present and no epistaxis Face and sinus: normal facial exam and no ecchymosis Mouth: Yes tongue normal and Yes moist mucous membranes Teeth and gingiva: dentition normal and edentulous Eyes: Conjunctivae: conjunctivae normal Sclera: sclerae normal Pupils: Equal, round and reactive pupils present EOM: EOMs intact bilaterally Neck: Neck: normal visual inspection, supple and no JVD Thyroid: thyroid normal Carotids: normal carotid upstroke Resp: Effort & Inspection: normal respiratory effort and able to speak in complete sentences Auscultation: clear to auscultation bilaterally Other: Diminished breath sounds Cardio: Jugular venous distension: no JVD Rate: regular rate and tachycardic Rhythm: regular rhythm Heart sounds: S1 normal heart sound present, S2 normal heart sound present and Murmur heart sound present GI: Inspection: normal to inspection Auscultation: normal bowel sounds Skin: Other: no rash on exposed areas, no cyanosis Neuro: Cranial nerves: Yes Equal, round and reactive pupils present and Yes Normal hearing present Other: alert, oriented, no major focal deficits on gross neurological examination Extrem: Other: Mild edema, no cyanosis,
[2019-12-02 12:17] LABS: Glucose Point of Care 262 (65-105)
--- NOTE | 2019-12-02 12:52 | PM.IMPN ---
Progress Note: A&P Assessment and Plan (1) UTI (urinary tract infection): Code(s): N39.0 - Urinary tract infection, site not specified Status: Acute Assessment and Plan: 12/02/19 12:52 Urine is growing E coli and Klebsiella pneumonia pending sensitivity will continue Rocephin for now patient is clinically stable.. Patient is 69-year-old female with history of CABG, hypertension, coronary artery disease diabetes patient had not been taking her medication for 2-3 years for financial problem presented emergency department with complaint of epigastric pain on route to ER EMS calls STEMI patient was seen by cast shell grinder and had a emergent catheterization which showed patient has a extensive coronary artery disease requiring stents is found to have severe systolic dysfunction with ejection fraction of 20-30 %, patient also has a poorly controlled diabetes with hemoglobin A1c of 13.9, discussed with the certified diabetes educator, patient also has a visual problem unable to use syringes for insulin, we have started the patient on metformin 500 mg b.i.d. Amaryl 2 mg q.day, and Lantus 20 units a.m. patient will require diabetic eye exam upon discharge, this morning patient blood sugars are close to 100 will to continue present management and monitor, patient clinically symptoms are improving patient will be transferred to rehab tomorrow (2) Uncontrolled diabetes mellitus: Code(s): E11.65 - Type 2 diabetes mellitus with hyperglycemia Status: Acute Assessment and Plan: Continue Levemir and sliding scale insulin. Glucoses have improved significantly. The importance of adherence to medication therapy was discussed in detail. She will need a dilated eye exam at discharge. (3) BMI 34.0-34.9,adult: Code(s): Z68.34 - Body mass index (BMI) 34.0-34.9, adult Status: Acute Assessment and Plan: Patient will need outpatient sleep study on discharge. (4) CHF (congestive heart failure): Code(s): I50.9 - Heart failure, unspecified Status: Acute Assessment and Plan: Management per primary service. (5) ST elevation (STEMI) myocardial infarction: Qualifiers: Involved coronary artery: unspecified coronary artery Qualified Code(s): I21.3 - ST elevation (STEMI) myocardial infarction of unspecified site Code(s): I21.3 - ST elevation (STEMI) myocardial infarction of unspecified site Status: Acute Assessment and Plan: Management per primary service. Subjective Date/time seen: 12/02/19 12:52 Urine is growing E coli and Klebsiella pneumonia pending sensitivity will continue Rocephin for now patient is clinically stable.. Patient is 69-year-old female with history of CABG, hypertension, coronary artery disease diabetes patient had not been taking her medication for 2-3 years for financial problem presented emergency department with complaint of epigastric pain on route to ER EMS calls STEMI patient was seen by cast shell grinder and had a emergent catheterization which showed patient has a extensive coronary artery disease requiring stents is found to have severe systolic dysfunction with ejection fraction of 20-30 %, patient also has a poorly controlled diabetes with hemoglobin A1c of 13.9, discussed with the certified diabetes educator, patient also has a visual problem unable to use syringes for insulin, we have started the patient on metformin 500 mg b.i.d. Amaryl 2 mg q.day, and Lantus 20 units a.m. patient will require diabetic eye exam upon discharge, this morning patient blood sugars are close to 100 will to continue present management and monitor, patient clinically symptoms are improving patient will be transferred to rehab tomorrow Review of Systems Review of Systems: All systems reviewed & are unremarkable except as noted in HPI and below Exam Narrative: Exam Narrative: Elderly frail Const: General: comfortable and no acute distress HENMT: General nose exam: Normal nares pre
[2019-12-02 18:31] LABS: Glucose Point of Care 172 (65-105)
[2019-12-02 21:42] LABS: Glucose Point of Care 234 (65-105)
[2019-12-03] VITALS (14 sets, daily range): BP systolic 88–117; BP diastolic 40–67; PULSE 80–116; RESP 16–22; TEMP 36.1–36.6; O2SAT 98–100
[2019-12-03 05:26] LABS: Hematocrit 44.7 % (37.0-47.0); Hemoglobin 14.9 g/dL (12.0-15.0); Mean Corpuscular HGB Conc 33.3 g/dl (32-36); Mean Corpuscular Hemoglobin 30.2 pg (26-34); Mean Corpuscular Volume 90.5 fl (80-100); Mean Platelet Volume 11.2 fl (7.4-10.4); Platelet Count Result 400 k/mm3 (150-375); Red Blood Count 4.94 M/mm3 (4.2-5.4); Red Cell Distribution Width 12.8 % (11.5-14.5); White Blood Count 12.7 K/mm3 (4.5-10.0)
[2019-12-03 05:40] LABS: Blood Urea Nitrogen 45 mg/dL (7-17); Calcium 8.5 mg/dL (8.4-10.2); Carbon Dioxide 31 mmol/L (22-30); Chloride 99 mmol/L (98-107); Estimated CRCL calculation 46 ml/min; Estimated Glomerular Filt Rate 55; Glucose 156 mg/dL (65-105); Potassium 3.7 mmol/L (3.4-5.0); Sodium 132 mmol/L (137-145)
[2019-12-03] MEDS: ASPIRIN 81 MG ENTERIC TABLET PO (08:48)
[2019-12-03] MEDS: GLIMEPIRIDE 2 MG TABLET PO (08:48)
[2019-12-03] MEDS: metFORMIN HCL 500 MG TABLET PO ×2 (08:48→18:02)
[2019-12-03] MEDS: carvediloL 3.125 MG TABLET PO ×2 (08:48→20:56)
[2019-12-03] MEDS: FUROSEMIDE 40 MG TABLET PO (08:49)
[2019-12-03] MEDS: TOLNAFTATE 1% POWDER 45 GM BTL 1 APPLIC TOPICAL ×2 (08:49→20:55)
[2019-12-03] MEDS: lisinopriL 2.5 MG TABLET PO (08:49)
[2019-12-03] MEDS: HEPARIN SODIUM 5,000 UNITS/ML VIAL 5000 UNITS SUB-Q ×2 (08:49→20:56)
[2019-12-03] MEDS: TICAGRELOR 90 MG TABLET PO ×2 (08:49→20:56)
[2019-12-03 09:00] LABS: Glucose Point of Care 143 (65-105)
--- NOTE | 2019-12-03 09:58 | PM.PNCARD ---
Progress Note: A&P Assessment and Plan (1) ST elevation (STEMI) myocardial infarction: Qualifiers: Involved coronary artery: unspecified coronary artery Qualified Code(s): I21.3 - ST elevation (STEMI) myocardial infarction of unspecified site Code(s): I21.3 - ST elevation (STEMI) myocardial infarction of unspecified site Status: Acute Assessment and Plan: Had STEMI 11/27/2019 secondary to occlusion of the SVG to the large OM, treated with thrombolytics and, later, stenting of the SVG and OM with 3 stents. Continue aspirin and Brilinta, carvedilol decreased to 3.125 b.i.d., lisinopril at 2.5 mg daily. Blood pressure has been soft at times. Has lightheadedness with activity. Will add spironolactone 25 mg p.o. daily in light of her severe LV dysfunction post [place]. Will monitor her BP and symptoms closely Due to transaminitis, she is currently not on statins. Will continue to monitor liver enzymes, and initiate statin as soon as able. PT OT. She would benefit from inpatient rehab. (2) CHF (congestive heart failure): Code(s): I50.9 - Heart failure, unspecified Status: Acute Assessment and Plan: Ischemic cardiomyopathy EF 25-30%. HFrEF Continue diuresis with Furosemide Monitor BMP closely with addition of spironolactone. (3) UTI (urinary tract infection): Code(s): N39.0 - Urinary tract infection, site not specified Status: Acute Assessment and Plan: Management per hospitalist (4) Elevated transaminase level: Code(s): R74.0 - Nonspecific elevation of levels of transaminase and lactic acid dehydrogenase [LDH] Status: Acute Assessment and Plan: Elevated at liver enzymes noted, possibly secondary to shock liver. Statin DC'd. US neg Improving. (5) Uncontrolled diabetes mellitus: Code(s): E11.65 - Type 2 diabetes mellitus with hyperglycemia Status: Acute Assessment and Plan: DKA resolved, blood sugars doing better. Management per hospitalist Additional Plan Plan discussed with Dr Morales [id number] 12/03/2019 Subjective Date/time seen: 12/03/19 09:58 Interval history: Follow-up for: acute myocardial infarction, previous CABG, left bundle branch block and severe ischemic cardiomyopathy. Date of service: 12/03/2019 Subjective: Feeling much better but still has some pressure in her chest that has not gone away since admission, she is short of breath with minimal activity, unable to lay flat in bed, lightheaded with exertional activity, tires easily and has lower extremity edema with legs feeling tight and tingling. Review of Systems Constitutional: Constitutional: Denies chills, Reports fatigue, Denies fever(s), Denies headache(s) and Reports weakness Eyes: Eyes: Denies change in vision, Denies loss of vision and Denies eye pain ENT: Reports Normal hearing present, Denies headache(s), Denies lip swelling, Denies epistaxis, Denies nasal congestion and Denies sore throat Cardiovascular: Cardiovascular: Denies chest pain, Denies syncope, Denies pedal edema, Denies irregular heart rhythm, Denies lightheadedness, Denies palpitations, Reports dyspnea, Reports dyspnea on exertion and Reports orthopnea Respiratory: Respiratory: Denies chest congestion, Denies cough, Reports dyspnea and Reports dyspnea on exertion Gastrointestinal: Gastrointestinal: Denies abdominal pain, Denies melena, Reports constipation and Denies hematemesis Genitourinary: Genitourinary: Denies hematuria and Reports dysuria Musculoskeletal: Musculoskeletal: Reports as per HPI, Denies back pain, Denies myalgias, Denies muscle cramps and Denies muscle weakness Integumentary/Breasts: Skin/Breast: Denies pruritus, Denies rash and Denies unusual bruising Neurologic: Reports system reviewed and no additional compla
[2019-12-03] MEDS: SPIRONOLACTONE 25 MG TABLET PO (12:09)
[2019-12-03 13:16] LABS: Glucose Point of Care 217 (65-105)
--- NOTE | 2019-12-03 14:10 | PCDIET ---
Weekly nutritional screen. Patient is tolerating diabetic, heart healthy diet with adequate intake. Initially with lower intake but has consumed average of 70% of meals over the past few days. No weight loss reported. BMI 34.9. No nutritional needs at this time.
--- NOTE | 2019-12-03 15:12 | PM.IMPN ---
Progress Note: A&P Assessment and Plan (1) UTI (urinary tract infection): Code(s): N39.0 - Urinary tract infection, site not specified Status: Acute Assessment and Plan: 12/03/19 15:12 Urine is growing E coli and Klebsiella pneumonia pending sensitivity will continue Rocephin for now patient is clinically stable.. Patient is 69-year-old female with history of CABG, hypertension, coronary artery disease diabetes patient had not been taking her medication for 2-3 years for financial problem presented emergency department with complaint of epigastric pain on route to ER EMS calls STEMI patient was seen by furnace feeder and had a emergent catheterization which showed patient has a extensive coronary artery disease requiring stents is found to have severe systolic dysfunction with ejection fraction of 20-30 %, patient also has a poorly controlled diabetes with hemoglobin A1c of 13.9, discussed with the mortgage consultant, patient also has a visual problem unable to use syringes for insulin, we have started the patient on metformin 500 mg b.i.d. Amaryl 2 mg q.day, and Lantus 20 units a.m. patient will require diabetic eye exam upon discharge, on 12/01 patient blood sugars were close to 100 and stopped lantus continued oral medications management and monitored, today patient is clinically stable her blood sugars are stabe, patient clinically symptoms are improving patient is waiting to be trasferred to rehab. (2) Uncontrolled diabetes mellitus: Code(s): E11.65 - Type 2 diabetes mellitus with hyperglycemia Status: Acute Assessment and Plan: Continue Levemir and sliding scale insulin. Glucoses have improved significantly. The importance of adherence to medication therapy was discussed in detail. She will need a dilated eye exam at discharge. (3) BMI 34.0-34.9,adult: Code(s): Z68.34 - Body mass index (BMI) 34.0-34.9, adult Status: Acute Assessment and Plan: Patient will need outpatient sleep study on discharge. (4) CHF (congestive heart failure): Code(s): I50.9 - Heart failure, unspecified Status: Acute Assessment and Plan: Management per primary service. (5) ST elevation (STEMI) myocardial infarction: Qualifiers: Involved coronary artery: unspecified coronary artery Qualified Code(s): I21.3 - ST elevation (STEMI) myocardial infarction of unspecified site Code(s): I21.3 - ST elevation (STEMI) myocardial infarction of unspecified site Status: Acute Assessment and Plan: Management per primary service. Subjective Date/time seen: 12/03/19 15:12 Urine is growing E coli and Klebsiella pneumonia pending sensitivity will continue Rocephin for now patient is clinically stable.. Patient is 69-year-old female with history of CABG, hypertension, coronary artery disease diabetes patient had not been taking her medication for 2-3 years for financial problem presented emergency department with complaint of epigastric pain on route to ER EMS calls STEMI patient was seen by furnace feeder and had a emergent catheterization which showed patient has a extensive coronary artery disease requiring stents is found to have severe systolic dysfunction with ejection fraction of 20-30 %, patient also has a poorly controlled diabetes with hemoglobin A1c of 13.9, discussed with the mortgage consultant, patient also has a visual problem unable to use syringes for insulin, we have started the patient on metformin 500 mg b.i.d. Amaryl 2 mg q.day, and Lantus 20 units a.m. patient will require diabetic eye exam upon discharge, on 12/01 patient blood sugars were close to 100 and stopped lantus continued oral medications management and monitored, today patient is clinically stable her blood sugars are stabe, patient clinically symptoms are improving patient is waiting to be trasferred to rehab. Review of Systems Review of Systems: All systems reviewed & are unremarkable except as not
[2019-12-03 17:06] LABS: Glucose Point of Care 174 (65-105)
[2019-12-03 21:08] LABS: Glucose Point of Care 211 (65-105)
[2019-12-04] VITALS (19 sets, daily range): BP systolic 85–110; BP diastolic 52–65; PULSE 87–103; RESP 12–18; TEMP 36.1–36.6; O2SAT 97–100
[2019-12-04 05:50] LABS: Glucose Point of Care 200 (65-105)
[2019-12-04] MEDS: ASPIRIN 81 MG ENTERIC TABLET PO (08:22)
[2019-12-04] MEDS: metFORMIN HCL 500 MG TABLET PO ×2 (08:22→16:38)
[2019-12-04] MEDS: GLIMEPIRIDE 2 MG TABLET PO (08:22)
[2019-12-04] MEDS: carvediloL 3.125 MG TABLET PO ×2 (08:22→20:18)
[2019-12-04] MEDS: SPIRONOLACTONE 25 MG TABLET PO (08:23)
[2019-12-04] MEDS: TOLNAFTATE 1% POWDER 45 GM BTL 1 APPLIC TOPICAL ×2 (08:23→20:18)
[2019-12-04] MEDS: FUROSEMIDE 40 MG TABLET PO (08:23)
[2019-12-04] MEDS: lisinopriL 2.5 MG TABLET PO (08:23)
[2019-12-04] MEDS: TICAGRELOR 90 MG TABLET PO ×2 (08:23→20:18)
[2019-12-04] MEDS: HEPARIN SODIUM 5,000 UNITS/ML VIAL 5000 UNITS SUB-Q ×2 (08:23→20:19)
[2019-12-04 08:54] LABS: Glucose Point of Care 163 (65-105)
--- NOTE | 2019-12-04 09:19 | PM.PNCARD ---
Progress Note: A&P Assessment and Plan (1) ST elevation (STEMI) myocardial infarction: Qualifiers: Involved coronary artery: unspecified coronary artery Qualified Code(s): I21.3 - ST elevation (STEMI) myocardial infarction of unspecified site Code(s): I21.3 - ST elevation (STEMI) myocardial infarction of unspecified site Status: Acute Assessment and Plan: Had STEMI 11/27/2019 secondary to occlusion of the SVG to the large OM, treated with thrombolytics and, later, stenting of the SVG and OM with 3 stents. Continue aspirin and Brilinta, carvedilol decreased to 3.125 b.i.d., lisinopril at 2.5 mg daily, spironolactone 25 mg daily. Blood pressure has been soft at times. Has lightheadedness with activity. Due to transaminitis, she is currently not on statins. Will continue to monitor liver enzymes, and initiate statin as soon as able. Patient's heart remains remain elevated. Unable to optimize beta-malorie dose due to low blood pressure. Will add ivabdarine 5 mg p.o. b.i.d. Repeat chest x-ray Check anti proBNP Continue PT OT. She would benefit from inpatient rehab. Consult requested for [facility]. (2) CHF (congestive heart failure): Code(s): I50.9 - Heart failure, unspecified Status: Acute Assessment and Plan: Ischemic cardiomyopathy EF 25-30%. HFrEF Continue diuresis with Furosemide Monitor BMP closely with addition of spironolactone. (3) UTI (urinary tract infection): Code(s): N39.0 - Urinary tract infection, site not specified Status: Acute Assessment and Plan: Management per hospitalist (4) Elevated transaminase level: Code(s): R74.0 - Nonspecific elevation of levels of transaminase and lactic acid dehydrogenase [LDH] Status: Acute Assessment and Plan: Elevated at liver enzymes noted, possibly secondary to shock liver. Statin DC'd. US neg Improving. (5) Uncontrolled diabetes mellitus: Code(s): E11.65 - Type 2 diabetes mellitus with hyperglycemia Status: Acute Assessment and Plan: DKA resolved, blood sugars doing better. Management per hospitalist Additional Plan Plan discussed with Dr Morales [id number] 12/03/2019 Subjective Date/time seen: 12/04/19 09:19 Date of service-12/04/2019 Chief complaint: Interval history-patient reports generalized weakness, occasional mild chest pressure and shortness of breath with orthopnea. She states that she feels wobbly when she stands up. Denies any dizziness or syncope. Exam Const: General: no acute distress, alert and awake HENMT: Head: normocephalic and atraumatic Ears: hearing grossly normal bilaterally and external ears normal General nose exam: Normal external nose present and no epistaxis Face and sinus: normal facial exam and no ecchymosis Mouth: Yes tongue normal and Yes moist mucous membranes Teeth and gingiva: dentition normal and edentulous Eyes: Conjunctivae: conjunctivae normal Sclera: sclerae normal Pupils: Equal, round and reactive pupils present EOM: EOMs intact bilaterally Neck: Neck: normal visual inspection, supple and no JVD Thyroid: thyroid normal Carotids: normal carotid upstroke Resp: Effort & Inspection: normal respiratory effort and able to speak in complete sentences Auscultation: clear to auscultation bilaterally Other: Diminished breath sounds Cardio: Jugular venous distension: no JVD Rate: regular rate and tachycardic Rhythm: regular rhythm Heart sounds: S1 normal heart sound present, S2 normal heart sound present and Murmur heart sound present GI: Inspection: normal to inspection GI Palp: No abdominal tenderness Auscultation: normal bowel sounds Skin: Other: no rash on exposed areas, no cyanosis Neuro: Cranial nerves: Yes Equal, round and reactive pupils present and Yes Normal heari
[2019-12-04 10:18] LABS: Hematocrit 41.7 % (37.0-47.0); Hemoglobin 13.9 g/dL (12.0-15.0); Mean Corpuscular HGB Conc 33.3 g/dl (32-36); Mean Corpuscular Hemoglobin 30.3 pg (26-34); Mean Corpuscular Volume 90.8 fl (80-100); Mean Platelet Volume 11.4 fl (7.4-10.4); Platelet Count Result 431 k/mm3 (150-375); Red Blood Count 4.59 M/mm3 (4.2-5.4); Red Cell Distribution Width 13.1 % (11.5-14.5); White Blood Count 11.7 K/mm3 (4.5-10.0)
[2019-12-04 10:39] LABS: Blood Urea Nitrogen 35 mg/dL (7-17); Calcium 8.5 mg/dL (8.4-10.2); Carbon Dioxide 32 mmol/L (22-30); Chloride 98 mmol/L (98-107); Estimated CRCL calculation 51 ml/min; Estimated Glomerular Filt Rate > 60; Glucose 208 mg/dL (65-105); Magnesium 1.9 mg/dL (1.6-2.3); Potassium 3.8 mmol/L (3.4-5.0); Sodium 131 mmol/L (137-145)
[2019-12-04 11:15] LABS: NT Pro B Type Natriuretic Pept 7700 PG/ML (5-100)
[2019-12-04 12:13] LABS: Glucose Point of Care 166 (65-105)
--- NOTE | 2019-12-04 14:35 | PCOTNOTE ---
Attempted to see patient for skilled OT, however, upon arrival patient verbalized not feeling well and declined to participate in any functional ADL or mobility task. Patient not seen for OT this date.
[2019-12-04 17:10] LABS: Glucose Point of Care 143 (65-105)
[2019-12-04 20:28] LABS: Glucose Point of Care 177 (65-105)
[2019-12-05] VITALS (12 sets, daily range): BP systolic 92–115; BP diastolic 51–65; PULSE 63–94; RESP 18–24; TEMP 36.1–36.6; O2SAT 85–100
[2019-12-05] MEDS: TICAGRELOR 90 MG TABLET PO (09:00)
[2019-12-05] MEDS: lisinopriL 2.5 MG TABLET PO (09:00)
[2019-12-05] MEDS: ASPIRIN 81 MG ENTERIC TABLET PO (09:00)
[2019-12-05] MEDS: carvediloL 3.125 MG TABLET PO (09:01)
[2019-12-05] MEDS: FUROSEMIDE 40 MG TABLET PO (09:01)
[2019-12-05] MEDS: SPIRONOLACTONE 25 MG TABLET PO (09:01)
[2019-12-05] MEDS: metFORMIN HCL 500 MG TABLET PO (09:02)
[2019-12-05] MEDS: GLIMEPIRIDE 2 MG TABLET PO (09:02)
[2019-12-05] MEDS: HEPARIN SODIUM 5,000 UNITS/ML VIAL 5000 UNITS SUB-Q (09:02)
[2019-12-05] MEDS: TOLNAFTATE 1% POWDER 45 GM BTL 1 APPLIC TOPICAL (09:05)
--- NOTE | 2019-12-05 10:50 | PM.PNCARD ---
Progress Note: A&P Assessment and Plan (1) ST elevation (STEMI) myocardial infarction: Qualifiers: Involved coronary artery: unspecified coronary artery Qualified Code(s): I21.3 - ST elevation (STEMI) myocardial infarction of unspecified site Code(s): I21.3 - ST elevation (STEMI) myocardial infarction of unspecified site Status: Acute Assessment and Plan: Had STEMI 11/27/2019 secondary to occlusion of the SVG to the large OM, treated with thrombolytics and, later, stenting of the SVG and OM with 3 stents. Continue aspirin, Brilinta, carvedilol 3.125 b.i.d., lisinopril at 2.5 mg daily and spironolactone 25 mg daily. Started on Ibravadine with much better heart rate. Due to transaminitis she is currently not on statins. Will continue to monitor liver enzymes as an outpatient. Will initiate statin when able. Complained of shortness of breath overnight which sounds like orthopnea. Although no oxygen desaturation noted still was placed on 2 L of oxygen for comfort. Home O2 eval to make sure that she does not need supplemental oxygen. Walked with therapy on standby. Heart rate stable at 86 beats per minute during ambulation. [place] short of breath which resolved with rest. No desaturations noted however still would like a formal study. Walking with physical therapy standby. Is using a walker. TR evaluation: Does not qualify for [facility]. Will be discharging with Home Health Discussed self-care that she will need to do at home including daily weights, sodium restriction and limiting her fluids to no more than 2 L per day. (2) CHF (congestive heart failure): Code(s): I50.9 - Heart failure, unspecified Status: Acute Assessment and Plan: Ischemic cardiomyopathy EF 25-30%. HFrEF. Medications as above. Will monitor renal function and electrolytes as an outpatient. (3) UTI (urinary tract infection): Code(s): N39.0 - Urinary tract infection, site not specified Status: Acute Assessment and Plan: Management per hospitalist (4) Elevated transaminase level: Code(s): R74.0 - Nonspecific elevation of levels of transaminase and lactic acid dehydrogenase [LDH] Status: Acute Assessment and Plan: Elevated at liver enzymes noted, possibly secondary to shock liver. Statin DC'd. US neg Improving. Monitor as an outpatient as above. (5) Uncontrolled diabetes mellitus: Code(s): E11.65 - Type 2 diabetes mellitus with hyperglycemia Status: Acute Assessment and Plan: DKA resolved, blood sugars doing better. Medications per hospitalist at discharge. Will need to follow-up with primary care provider closely after discharge. Additional Plan MiraLax x1 dose for constipation. No other changes in her medications are planned. Will discuss discharge with her son per phone. Plan to discharge today. Plan discussed with Dr Robert [id number] 12/05/2019 Subjective Date/time seen: 12/05/19 10:50 Interval history: Follow-up for: acute myocardial infarction, previous CABG, left bundle branch block and severe ischemic cardiomyopathy. Date of service: 12/05/2019 Subjective: Had difficulty with some shortness of breath overnight. [place] that she could not breathe and felt some pressure in her chest when she was laying in bed. 2 L of oxygen applied and symptoms relieved. Denied chest discomfort or pressure at this time. Looking forward to going home. Informed chest x-ray improved. Short of breath with exertional activities. Lower extremity edema unchanged although she has not been keeping her legs elevated. Review of Systems Constitutional: Constitutional: Denies chills, Denies fever(s), Denies headache(s) and Reports weakness (Feels much more secure with walker.) Eyes: Eyes: Denies change in vision, Denies loss of v
[2019-12-05 11:01] LABS: Alanine Aminotransferase 55 U/L (4-35); Albumin Level 2.5 g/dL (3.5-5.1); Alkaline Phosphatase 1020 U/L (38-126); Aspartate Amino Transferase 68 U/L (14-36); Bilirubin,Total 0.7 mg/dL (0.2-1.3); Blood Urea Nitrogen 46 mg/dL (7-17); Calcium 8.7 mg/dL (8.4-10.2); Carbon Dioxide 31 mmol/L (22-30); Chloride 97 mmol/L (98-107); Estimated CRCL calculation 42 ml/min; Estimated Glomerular Filt Rate 49; Glucose 250 mg/dL (65-105); Potassium 4.2 mmol/L (3.4-5.0); Sodium 130 mmol/L (137-145)
[2019-12-05] MEDS: polyethylene glycoL 3350 17 GM POWD.PACK PO (11:23)
--- NOTE | 2019-12-05 13:55 | PCRCNOTE ---
HOME O2 EVAL COMPLETE, NO REQUIREMENTS
--- NOTE | 2019-12-05 14:22 | PM.DS ---
DS: Diagnosis Admitting Diagnosis Admitting Diagnosis: ST elevation (STEMI) myocardial infarction of unspecified site Discharge Diagnosis (1) ST elevation (STEMI) myocardial infarction: Qualifiers: Involved coronary artery: unspecified coronary artery Qualified Code(s): I21.3 - ST elevation (STEMI) myocardial infarction of unspecified site Code(s): I21.3 - ST elevation (STEMI) myocardial infarction of unspecified site Status: Acute Assessment and Plan: Had STEMI 11/27/2019 secondary to occlusion of the SVG to the large OM, treated with thrombolytics and later stenting of the SVG and OM with 3 stents. Continue aspirin, Brilinta, carvedilol 3.125 b.i.d., lisinopril at 2.5 mg daily and spironolactone 25 mg daily. Started on Ibravadine 5 mg every 12 hours with much better heart rate. Due to transaminitis she is currently not on statins. Will continue to monitor liver enzymes as an outpatient. Will initiate statin when able. LFTs will be checked as an outpatient Walking with physical therapy on standby. Walker ordered for home. Home O2 study done. Does not need home oxygen. Discussed self-care that she will need to do at home including daily weights, sodium restriction and limiting her fluids to no more than 2 L per day. (2) CHF (congestive heart failure): Qualifiers: Heart failure type: systolic Heart failure chronicity: acute Qualified Code(s): I50.21 - Acute systolic (congestive) heart failure Code(s): I50.9 - Heart failure, unspecified Status: Acute Assessment and Plan: Ischemic cardiomyopathy EF 25-30%. HFrEF. (NYHA III Class C) Medications as above. Will monitor renal function and electrolytes as an outpatient. (3) UTI (urinary tract infection): Qualifiers: Hematuria presence: without hematuria Urinary tract infection type: site unspecified Qualified Code(s): N39.0 - Urinary tract infection, site not specified Code(s): N39.0 - Urinary tract infection, site not specified Status: Acute Assessment and Plan: Cardona catheter discontinued . Management per hospitalist Completed 7 doses of ceftriaxone IV. Will not need antibiotics at discharge. (4) Elevated transaminase level: Code(s): R74.0 - Nonspecific elevation of levels of transaminase and lactic acid dehydrogenase [LDH] Status: Acute Assessment and Plan: Elevated at liver enzymes noted, possibly secondary to shock liver. Statin DC'd. US neg Improving. Monitor as an outpatient as above. (5) Uncontrolled diabetes mellitus: Qualifiers: Diabetes mellitus type: type 2 Glycemic state: with hyperglycemia Qualified Code(s): E11.65 - Type 2 diabetes mellitus with hyperglycemia Code(s): E11.65 - Type 2 diabetes mellitus with hyperglycemia Status: Acute Assessment and Plan: DKA resolved, blood sugars doing better. Medications per hospitalist at discharge. Will need to follow-up with primary care provider closely after discharge. DS: Summary Hospital Course Reason for hospitalization: Chest pain ST-elevation myocardial infarction Hospital Course: 69 year old female with a history of remote CABG x3 in 2005 at [place], [place], poorly controlled diabetes mellitus, non adherence with medical regimen and outpatient follow-up due to financial reasons presenting to the [facility] on 11/26/2019 with about 1 day history of epigastric discomfort associated with diaphoresis and nausea. At baseline, she was able to walk without difficulty. Due to financial reasons, she had not been able to follow-up with a ditch inspector for last 2-3 years. Her EKG upon arrival in the ER which Dr Salinas personally evaluated showed sinus tachycardia, heart rate 110 beats per minut
[2019-12-05 17:42] LABS: Glucose Point of Care 251 (65-105)
[2019-12-05 17:42] LABS: Glucose Point of Care 182 (65-105)
== END 2019-12-05 19:03 | disposition home health service (06) | DRG 246 ==
LOC: ANHED 21:24 → ANHICU 21:33 → ANHIMU 11-29 17:22
PROVIDERS: Family Medicine; Internal Medicine; Nurse Practitioner Adult Health; Admitting Provider Internal Medicine Cardiovascular Disease; Emergency Provider Emergency Medicine; Visit Provider Internal Medicine Cardiovascular Disease
DX: I21.3 ST elevation (STEMI) myocardial infarction of unspecified site (principal); K72.00 Acute and subacute hepatic failure without coma; I50.41 Acute combined systolic (congestive) and diastolic (congestive) heart failure; N39.0 Urinary tract infection, site not specified; B96.20 Unspecified Escherichia coli [E. coli] as the cause of diseases classified elsewhere; B96.1 Klebsiella pneumoniae [K. pneumoniae] as the cause of diseases classified elsewhere; I25.10 Atherosclerotic heart disease of native coronary artery without angina pectoris; I25.82 Chronic total occlusion of coronary artery; E11.65 Type 2 diabetes mellitus with hyperglycemia; E11.42 Type 2 diabetes mellitus with diabetic polyneuropathy; I25.5 Ischemic cardiomyopathy; I44.7 Left bundle-branch block, unspecified; G47.33 Obstructive sleep apnea (adult) (pediatric); E66.9 Obesity, unspecified; Z68.34 Body mass index [BMI] 34.0-34.9, adult; Z95.1 Presence of aortocoronary bypass graft; Z91.19 Patient's noncompliance with other medical treatment and regimen; I25.2 Old myocardial infarction; Z90.49 Acquired absence of other specified parts of digestive tract; Z87.891 Personal history of nicotine dependence
CPT/HCPCS: 36415; 36600; 37195; 71045; 76705; 80048; 80053; 80061; 80074; 80076; 81001; 82805; 82947; 83036; 83735; 83880; 84100; 84484; 85025; 85027; 85610; 85730; 86850; 86900; 86901; 87077; 87086; 87088; 87186; 92973; 93005; 93455; 94618; 96365; 96375; 97110; 97116; 97162; 97165; 97530; 97535; 99291; A9270; C1757; C1760; C1769; C1784; C1874; C1887; C1894; C8929; C9600; C9604; G0269; J0153; J0583; J0696; J0780; J1644; J1815; J1940; J2250; J2270; J2405; J2997; J3010; J3480; J7030; J7040; J7060; J7120; Q9957

== ENCOUNTER 2019-12-07 06:44 | Emergency (ER) | payer MEDICARE, SELFPAY ==
--- NOTE | ~2019-12-07 | US_ITS ---
EXAMINATION: US pelvic complete DATE: 12/07/2019 07:32 INDICATION: Postmenopausal vaginal bleeding. TECHNIQUE: Multiple transabdominal sonographic images of the pelvis were obtained. COMPARISON: None. FINDINGS: The uterus measures 8.3 x 4.2 x 4.6 cm. There is no free fluid in the pelvis. The endometrial complex measures 12 mm in thickness. The ovaries are not visualized. IMPRESSION: 1. Thickened endometrial complex. The differential diagnosis includes endometrial hyperplasia, polyp, and carcinoma. Biopsy is recommended. Reviewed, dictated and finalized at location A. IMPRESSION: 1. Thickened endometrial complex. The differential diagnosis includes endometri al hyperplasia, polyp, and carcinoma. Biopsy is recommended.
--- NOTE | 2019-12-07 06:39 | ED.ABDPAIN ---
HPI - Abdominal Pain General Chief Complaint: Vaginal Bleeding Stated Complaint: GI Bleed Source: patient and EMS Mode of arrival: EMS Limitations: no limitations History of Present Illness HPI narrative: Patient is a 69-year-old female who presents for evaluation of vaginal bleeding. Patient reports a 20-year history of vaginal bleeding, states that she has intermittently used pads, but states that bleeding has been increased over the past day. Patient states she has been soaking through many pads per hour since discharge from the hospital for recent STEMI. Patient reports that she did have some bleeding while in the hospital, but was not told anything regarding this. She states that she has seen a CAR WASH SUPERVISOR once in the past, but did not follow-up due to financial constraints. Patient reports lower abdominal cramping, mild in nature. No back pain. No urinary symptoms. No fever, cough or cold symptoms. Patient denies dark or tarry stool. Related Data Allergies Allergy/AdvReac Type Severity Reaction Status Date / Time ibuprofen [From Motrin IB] Allergy Swelling Verified 11/26/19 20:30 of the Eye morphine AdvReac Nausea and Verified 11/26/19 20:44 Vomiting Review of Systems Review of Systems: Narrative: CONSTITUTIONAL: Denies fever, chills, or sweats. ENT: Denies rhinorrhea, congestion, sore throat, or otalgia. CARDIOVASCULAR: Denies chest pain, palpitations, or edema. RESPIRATORY: Denies cough or dyspnea. GASTROINTESTINAL: Reports lower abdominal pain, denies nausea, vomiting, or diarrhea. GENITOURINARY: Denies dysuria or hematuria. Reports vaginal bleeding. SKIN: Denies rash or itching. MUSCULOSKELETAL: Denies back pain, joint pain, or myalgia. NEUROLOGIC: Denies headache, numbness, or weakness. [facility] Past Medical History Medical History CHF (congestive heart failure) Echocardiogram 11/27/2019: Summary 1. Severe left ventricular dysfunction is present. Ejection fraction visually is 25-30%, and measured is 33%. There is akinesis of the posterior lateral, distal inferior, proximal, mid and distal lateral mclaughlin, severe hypokinesis of the mid distal septum and mild hypokinesis of the inferior wall and mid and proximal septum. 2. Normal left ventricular size with mild concentric hypertrophy. Diastolic dysfunction is present. 3. There is moderate mitral valve regurgitation. 4. There is moderate tricuspid valve regurgitation. 5. Left atrial chamber dimension is moderately enlarged. 6. Technically difficult study, definity echo contrast used. Diabetic peripheral neuropathy associated with type 2 diabetes mellitus Myocardial infarction STEMI 11/26/2019 Obstructive sleep apnea Type 2 diabetes mellitus Surgical History Surgical History History of coronary artery bypass graft x 3 History of right cataract extraction Hx of cholecystectomy Hx of tonsillectomy Family History Family History Mother Heart disease CHF (congestive heart failure) Father Lung cancer Dementia Sibling CHF (congestive heart failure) Dementia Social History Social History Social History: The patient is the youngest of 5 children. She had multiple siblings who had a history of dementia. She had 1 sibling who had lung cancer. Code status: Full code per EMR Smoking packs per day: 1.5 Smoking cigarettes per day: 30.0 Years smoked: 45 Smoking pack-years: 67.50 Smoking status: Former smoker Additional smoking assessment comments: She quit smoking in 2005. Alcohol intake: never Substance use: never Substance use type: does not use Additional living arrangements comments: The patient lives with her of 49 years. She is independent in activities of
[2019-12-07 06:40] VITALS: PULSE 80
[2019-12-07 06:46] VITALS: BP 109/59; PULSE 90; RESP 22; TEMP 36.8; O2SAT 98
--- NOTE | 2019-12-07 06:56 | PC.NURSE ---
Assisted Physician with pelvic exam, vaginal bleeding noted, no specimen taken. Patient tolerated well.
--- NOTE | 2019-12-07 07:10 | PC.NURSE ---
PT REPORT GIVEN BY MARTINEZ POLANCO AT THIS TIME, PT IN [facility] SOUND AT THIS TIME, FAMILY IN ROOM.
[2019-12-07 07:33] VITALS: BP 98/62; PULSE 81; RESP 20; O2SAT 100
[2019-12-07 07:50] LABS: Basophils Percent Auto 0.3 % (0.2-1.2); Eosinophils Absolute Auto 0.2 K/mm3 (0-0.3); Eosinophils Percent Auto 1.1 % (0-4.4); Hematocrit 41.5 % (37.0-47.0); Hemoglobin 13.6 g/dL (12.0-15.0); Immature Granulocyte Absolute 0.13 K/mm3 (0.00-0.031); Immature Granulocyte Percent A 0.8 % (0-0.5); Lymphocytes Absolute Auto 2.49 K/mm3 (0.9-3.2); Lymphocytes Percent Auto 15.8 % (18.3-44.2); Mean Corpuscular HGB Conc 32.8 g/dl (32-36); Mean Corpuscular Hemoglobin 30.5 pg (26-34); Mean Platelet Volume 11.3 fl (7.4-10.4); Monocytes Absolute Auto 1.2 K/mm3 (0.1-0.6); Monocytes Percent Auto 7.5 % (2.6-8.5); Neutrophils Absolute Auto 11.8 K/mm3 (1.3-6.7); Neutrophils Percent Auto 74.5 % (45.5-73.1); Platelet Count Result 488 k/mm3 (150-375); Red Blood Count 4.46 M/mm3 (4.2-5.4); Red Cell Distribution Width 13.3 % (11.5-14.5); White Blood Count 15.8 K/mm3 (4.5-10.0)
[2019-12-07 07:53] VITALS: BP 94/55; PULSE 82; RESP 16; O2SAT 100
[2019-12-07 08:00] LABS: Partial Thromboplastin Time 32.7 SECONDS (22.3-36.8); Prothrombin Time 13.3 Seconds (11.1-14.7)
[2019-12-07 08:08] LABS: Alanine Aminotransferase 58 U/L (4-35); Albumin Level 2.9 g/dL (3.5-5.1); Alkaline Phosphatase 1376 U/L (38-126); Aspartate Amino Transferase 77 U/L (14-36); Bilirubin,Total 0.7 mg/dL (0.2-1.3); Blood Urea Nitrogen 50 mg/dL (7-17); Calcium 9.1 mg/dL (8.4-10.2); Carbon Dioxide 32 mmol/L (22-30); Chloride 96 mmol/L (98-107); Estimated CRCL calculation 40 ml/min; Estimated Glomerular Filt Rate 44; Glucose 196 mg/dL (65-105); Potassium 4.2 mmol/L (3.4-5.0); Sodium 131 mmol/L (137-145)
[2019-12-07 08:15] LABS: Add Urine Microscopic? YES; Appearance Urine Cloudy (Clear); Bacteria Urine 2+ /hpf; Bilirubin Urine Negative (Negative); Blood Urine 1+ (Negative); Color Urine Yellow (Yellow); Glucose Urine UA Negative (Negative); Ketones Urine Negative (Negative); Leukocyte Esterase Ur 2+ LEU/UL (Negative); Nitrate Urine Negative (Negative); Protein Urine 2+ mg/dL (Negative); RBC Urine 0-2 /hpf (0-2); Specific Grav Ur 1.017 (1.001-1.035); Squamous Epithelial Cell Urine Occasional /hpf (Few); Urobilinogen Urine Negative mg/dL (<2.0); WBC Clumps Urine Present /HPF; WBC Urine 51-75 /hpf
--- NOTE | 2019-12-07 09:18 | PC.NURSE ---
SPOKE WITH CARLOS VALENTE WHO HAS ASKED THAT WE HOLD ON D/C'ING PT UNTIL SHE HAS HAD A CHANCE TO SPEAK WITH HER ABOUT HER RESULTS.
[2019-12-07 09:47] VITALS: BP 103/63; PULSE 83; RESP 15; O2SAT 99
== END 2019-12-07 09:48 | disposition home or self-care (01) ==
PROVIDERS: Emergency Provider Emergency Medicine
DX: N93.8 Other specified abnormal uterine and vaginal bleeding (principal); I50.9 Heart failure, unspecified; E11.42 Type 2 diabetes mellitus with diabetic polyneuropathy; I25.2 Old myocardial infarction; I25.10 Atherosclerotic heart disease of native coronary artery without angina pectoris; G47.33 Obstructive sleep apnea (adult) (pediatric); Z95.1 Presence of aortocoronary bypass graft; Z98.41 Cataract extraction status, right eye; Z87.891 Personal history of nicotine dependence; R93.89 Abnormal findings on diagnostic imaging of other specified body structures; R82.998 Other abnormal findings in urine
CPT/HCPCS: 36415; 51701; 76856; 80053; 81001; 85025; 85610; 85730; 86850; 86900; 86901; 87086; 99284

== ENCOUNTER 2019-12-28 04:53 | Emergency (ER) | payer MEDICARE, SELFPAY ==
[2019-12-28] VITALS (14 sets, daily range): BP systolic 85–101; BP diastolic 42–60; PULSE 97–107; RESP 16–27; TEMP 36.8; O2SAT 96–100
--- NOTE | ~2019-12-28 | CT_ITS ---
EXAMINATION: CTA chest PE protocol DATE: 12/28/2019 05:49 INDICATION: Shortness of breath TECHNIQUE: Computed tomography (CT) pulmonary angiogram of the chest was performed with 100 mL Omnipa que-350 intravenous contrast. Additional 3D reconstructions utilizing coronal maximum intensity proje ction (MIP) were performed. The dose-length product was 742.43 mGy-cm. COMPARISON: None FINDINGS: Excellent contrast opacification of the pulmonary arteries. There is mild streak artifact from dense contrast in the superior vena cava and right atrium. Mild scattered respiratory motion artifact. Cent ral pulmonary arterial filling defect in the common trunk of the posterior and lateral basilar segmen isaura pulmonary arteries of the right lower lobe which continues into the lateral basilar segmental pul monary arteries. No other pulmonary emboli appreciated. Small bilateral pleural effusions. Associated dependent compressive atelectasis in the bilateral lower lobes. Subtle scattered groundglass opacity along with mild smooth septal line thickening at the bilateral lung bases consistent with mild pulmo nary edema. Bilateral calcified pulmonary nodules along with calcified mediastinal lymph nodes, few s mall hepatic calcifications and multiple splenic calcifications, all consistent with old granulomatou s disease. Mild cardiomegaly. No leftward deviation of the ventricular septum to suggest right heart strain. Atherosclerotic coronary artery calcifications with change of prior median sternotomy and cor onary artery bypass grafting. Thoracic aorta is normal in caliber with scattered atherosclerotic calc ifications and no dissection. No pathologically enlarged abdominal or pelvic lymphadenopathy. Cholecy stectomy clips the gallbladder fossa. Splenorenal collaterals which could be seen with other pulmonar y venous hypertension or splenic vein thrombosis. IMPRESSION: 1. Single pulmonary embolism in a segmental pulmonary artery of the right lower lobe. 2. Findings suggestive of congestive heart failure including cardiomegaly, mild pulmonary edema and s mall bilateral pleural effusions. 3. Splenorenal collaterals which could be seen with portal venous hypertension or splenic vein thromb osis. Reviewed, dictated and finalized at location A. IMPRESSION: 1. Single pulmonary embolism in a segmental pulmonary artery of the right lower lobe. 2. Findings suggestive of congestive heart failure including cardiomegaly, mild pulmonary edema and small bilateral pleural effusions. 3. Splenorenal collaterals which could be seen with portal venous hypertension or splenic vein thrombosis.
--- NOTE | 2019-12-28 05:02 | ECG_ITS ---
Measurements Intervals [place] Rate: 105 P: -4 NM: 146 QRS: 7 QRSD: 114 T: 157 QT: 353 QTc: 467 Interpretive Statements SINUS TACHYCARDIA INCOMPLETE LEFT BUNDLE BRANCH BLOCK LOW QRS VOLTAGE IN LIMB LEADS POOR R WAVE PROGRESSION, ANTERIOR LEADS BORDERLINE ST-T WAVE ABNORMALITY- INF/LAT LEADS BASELINE ARTIFACT- I, II, III, AVR, AVL, AVF ABNORMAL ECG Electronically Signed On 12-28-2019 7:13:17 CDT by Elgin Maurice D.O.
--- NOTE | 2019-12-28 05:07 | ED.SOB ---
HPI - SOB/Dyspnea General Chief Complaint: Shortness of Breath/Dyspnea <Rasheed Bowie MD - Last Filed: 01/03/20 07:13> Stated Complaint: resp diff, cp <Rasheed Bowie MD - Last Filed: 01/03/20 07:13> Time Seen by Provider: 12/28/19 05:05 <Rasheed Bowie MD - Last Filed: 01/03/20 07:13> History of Present Illness HPI Narrative: 69 yo female w/ h/o [place], DM [facility]. [facility] following a heart attack on 12/13/2019. This evening she notes that she was feeling very short of breath and shakey. She had a troponin done at 0300 this morning that was 0.11. She denies chest pain. She was reportedly having right shoulder pain for the past 2 days. <Rasheed Bowie MD - Last Filed: 01/03/20 07:13> Related Data Home Medications: Home Medications Medication Instructions Recorded Confirmed atorvastatin 40 mg PO HS 12/28/19 12/28/19 digoxin 125 mcg PO HS 12/28/19 furosemide 40 mg PO BID 12/28/19 metoprolol succinate 12.5 mg PO DAILY 12/28/19 <Rasheed Bowie MD - Last Filed: 01/03/20 07:13> Allergies/Adverse Reactions: Allergies Allergy/AdvReac Type Severity Reaction Status Date / Time ibuprofen [From Motrin IB] Allergy Swelling Verified 12/28/19 05:19 of the Eye morphine AdvReac Nausea and Verified 12/28/19 05:19 Vomiting <Rasheed Bowie MD - Last Filed: 01/03/20 07:13> Review of Systems Review of Systems: All systems reviewed & are unremarkable except as noted in HPI and below <Rasheed Bowie MD - Last Filed: 01/03/20 07:13> Constitutional: Constitutional: Denies fever(s) <Rasheed Bowie MD - Last Filed: 01/03/20 07:13> ENT: Denies nasal congestion and Denies sore throat <Rasheed Bowie MD - Last Filed: 01/03/20 07:13> Cardiovascular: Cardiovascular: Denies chest pain <Rasheed Bowie MD - Last Filed: 01/03/20 07:13> Respiratory: Respiratory: Denies cough and Reports dyspnea <Rasheed Bowie MD - Last Filed: 01/03/20 07:13> Gastrointestinal: Gastrointestinal: Denies abdominal pain <Rasheed Bowie MD - Last Filed: 01/03/20 07:13> Neurologic: Denies focal weakness and Denies numbness <Rasheed Bowie MD - Last Filed: 01/03/20 07:13> [facility] Past Medical History Medical History: Medical History CHF (congestive heart failure) Echocardiogram 11/27/2019: Summary 1. Severe left ventricular dysfunction is present. Ejection fraction visually is 25-30%, and measured is 33%. There is akinesis of the posterior lateral, distal inferior, proximal, mid and distal lateral mclaughlin, severe hypokinesis of the mid distal septum and mild hypokinesis of the inferior wall and mid and proximal septum. 2. Normal left ventricular size with mild concentric hypertrophy. Diastolic dysfunction is present. 3. There is moderate mitral valve regurgitation. 4. There is moderate tricuspid valve regurgitation. 5. Left atrial chamber dimension is moderately enlarged. 6. Technically difficult study, definity echo contrast used. Diabetic peripheral neuropathy associated with type 2 diabetes mellitus Myocardial infarction STEMI 11/26/2019 Obstructive sleep apnea Type 2 diabetes mellitus <Rasheed Bowie MD - Last Filed: 01/03/20 07:13> Surgical History Surgical History: Surgical History History of coronary artery bypass graft x 3 History of right cataract extraction Hx of cholecystectomy Hx of tonsillectomy <Rasheed Bowie MD - Last Filed: 01/03/20 07:13> Family History Family History: Family History Mother Heart disease CHF (congestive heart failure) Father Lung cancer Dementia Sibling CHF (congestive heart failure) Dementia <Rasheed
[2019-12-28 05:17] LABS: Basophils Absolute Auto 0.1 K/mm3 (0.0-0.1); Basophils Percent Auto 0.7 % (0.2-1.2); Eosinophils Absolute Auto 0.3 K/mm3 (0-0.3); Eosinophils Percent Auto 3.2 % (0-4.4); Hemoglobin 9.9 g/dL (12.0-15.0); Immature Granulocyte Absolute 0.04 K/mm3 (0.00-0.031); Immature Granulocyte Percent A 0.5 % (0-0.5); Lymphocytes Absolute Auto 2.32 K/mm3 (0.9-3.2); Lymphocytes Percent Auto 26.3 % (18.3-44.2); Mean Corpuscular HGB Conc 31.9 g/dl (32-36); Mean Corpuscular Hemoglobin 30.2 pg (26-34); Mean Corpuscular Volume 94.5 fl (80-100); Mean Platelet Volume 10.6 fl (7.4-10.4); Monocytes Absolute Auto 1.2 K/mm3 (0.1-0.6); Monocytes Percent Auto 13.5 % (2.6-8.5); Neutrophils Absolute Auto 4.9 K/mm3 (1.3-6.7); Neutrophils Percent Auto 55.8 % (45.5-73.1); Platelet Count Result 458 k/mm3 (150-375); Red Blood Count 3.28 M/mm3 (4.2-5.4); White Blood Count 8.8 K/mm3 (4.5-10.0)
[2019-12-28 05:32] LABS: Blood Urea Nitrogen 20 mg/dL (7-17); Calcium 7.1 mg/dL (8.4-10.2); Carbon Dioxide 27 mmol/L (22-30); Chloride 104 mmol/L (98-107); Estimated CRCL calculation 56 ml/min; Estimated Glomerular Filt Rate > 60; Glucose 98 mg/dL (65-105); Potassium 3.5 mmol/L (3.4-5.0); Sodium 134 mmol/L (137-145)
[2019-12-28 05:34] LABS: INR 1.2; Prothrombin Time 14.7 Seconds (11.1-14.7)
[2019-12-28 05:49] LABS: NT Pro B Type Natriuretic Pept 5380 PG/ML (5-100); Troponin I 0.208 ng/mL (0.000-0.034)
[2019-12-28] MEDS: ENOXAPARIN 80 MG/0.8 ML SYRINGE SUB-Q (06:25)
[2019-12-28 06:47] LABS: Albumin Level 2.4 g/dL (3.5-5.1)
[2019-12-28] MEDS: ALBUMIN HUMAN 25% 12.5 GM/50ML 100 ML IVPB (07:23)
[2019-12-28] MEDS: SODIUM CHLORIDE 0.9% IV 500 ML 999 ML IV CONT (07:24)
--- NOTE | 2019-12-28 07:27 | PC.NURSE ---
ASSUMED PT CARE FROM MARTINEZ PASTOR AT THIS TIME. PT VSS IN NO APPARENT DISTRESS. UPON IV ASSESSMENT IV IS NOT PLACED IN AC IT IS IN THE L WRIST.
--- NOTE | 2019-12-28 08:49 | PC.NURSE ---
PER ERP SUZIE PT HAS BEEN ACCEPTED DIRECT ADMIT TO [facility] AT THIS TIME. PER ERP WE ARE AWAITING THEM TO CALL BACK WITH BED NUMBER, PT INFORMED.
--- NOTE | 2019-12-28 08:55 | PC.NURSE ---
PT HAS BEEN ACCEPTED TO ROOM 463 AT [facility] IN [facility]. REPORT TO BE CALLED TO MARTINEZ Davis AT [phone].
--- NOTE | 2019-12-28 08:59 | PC.NURSE ---
ATTEMPTED TO CALL PT REPORT, NO ANSWER, WILL CONTACT AGAIN SOON.
--- NOTE | 2019-12-28 09:03 | PC.NURSE ---
ATTEMPTED TO CALL REPORT AGAIN, RN DID NOT ANSWER PHONE, WILL ATTEMPT AGAIN SOON.
--- NOTE | 2019-12-28 09:18 | PC.NURSE ---
ATTEMPTED TO CALL REPORT TO RN AT TRANSFER FACILITY AGAIN, REFUSED CALL.
[2019-12-28 09:31] LABS: Troponin I 0.224 ng/mL (0.000-0.034)
--- NOTE | 2019-12-28 09:32 | PC.NURSE ---
MARTINEZ Richards AT [facility] CALLED TO GET REPORT AT THIS TIME. NO FURTHER QUESTIONS, AWAITING PT TRANSPORT.
--- NOTE | 2019-12-28 10:46 | PC.NURSE ---
[facility] HAS DELAYED TRANPORT TIME, [facility] CONTACTED, PER UNIT SEC THEY ARE EN ROUTE TO ED FOR TRANSPORT.
== END 2019-12-28 11:07 | disposition short-term general hospital (02) ==
PROVIDERS: Emergency Medicine; Emergency Provider Emergency Medicine
DX: I26.99 Other pulmonary embolism without acute cor pulmonale (principal); I50.9 Heart failure, unspecified; R79.89 Other specified abnormal findings of blood chemistry; E11.42 Type 2 diabetes mellitus with diabetic polyneuropathy; I25.2 Old myocardial infarction; G47.33 Obstructive sleep apnea (adult) (pediatric); Z95.1 Presence of aortocoronary bypass graft; I25.10 Atherosclerotic heart disease of native coronary artery without angina pectoris; Z98.41 Cataract extraction status, right eye; Z87.891 Personal history of nicotine dependence; R00.0 Tachycardia, unspecified; I44.7 Left bundle-branch block, unspecified; R94.31 Abnormal electrocardiogram [ECG] [EKG]
CPT/HCPCS: 36415; 71275; 80048; 82040; 83880; 84484; 85025; 85610; 85730; 93005; 96365; 96372; 99291; J1650; J7040; P9047; Q9967

== ENCOUNTER 2020-01-26 15:14 | Inpatient (IN) | payer MEDICARE, MEDICAID, SELFPAY ==
[2020-01-26] VITALS (8 sets, daily range): BP systolic 90–102; BP diastolic 53–89; PULSE 74–89; RESP 18–25; TEMP 35.8–36.6; O2SAT 93–100; BMI 31.8
--- NOTE | ~2020-01-26 | XR_ITS ---
XR chest 1V portable 01/29/2020 13:27 Indication: CHF Procedure: AP portable chest Comparison: Comparison to multiple prior studies sequentially, with oldest reviewed study dated 09/2019. Findings: Status post median sternotomy for CABG. Cardiomegaly. Mild interstitial edema. Small pleura l effusions. No pneumothorax. No acute osseous abnormality. Impression: 1: Cardiomegaly with interstitial edema. 2: Small pleural effusions. Reviewed, dictated and finalized at location A. Impression: 1: Cardiomegaly with interstitial edema. 2: Small pleural effusions.
--- NOTE | ~2020-01-26 | XR_ITS ---
XR chest 2V 01/26/2020 15:48 Indication: Shortness of breath Procedure: 2 view chest Comparison: Comparison to multiple prior studies sequentially, with oldest reviewed study dated 08/2019. Findings: Cardiomegaly. Status post median sternotomy for CABG. There is interstitial edema. Small pl eural effusions. Cannot exclude underlying pneumonia. No acute osseous abnormality. No pneumothorax. Impression: 1: Cardiomegaly with interstitial edema and layering pleural effusions. Cannot exclude underlying pne umonia. Reviewed, dictated and finalized at location A. Impression: 1: Cardiomegaly with interstitial edema and layering pleural effusions. Cannot exclude underlying pneumonia.
--- NOTE | 2020-01-26 15:24 | ECG_ITS ---
Measurements Intervals [place] Rate: 89 P: 25 AL: 142 QRS: 60 QRSD: 100 T: 188 QT: 365 QTc: 445 Interpretive Statements SINUS RHYTHM LOW QRS VOLTAGE IN LIMB LEADS POOR R WAVE PROGRESSION, ANTERIOR LEADS BORDERLINE ST-T WAVE ABNORMALITY- DIFFUSE LEADS BASELINE ARTIFACT- I, II, III, AVR, AVL, V6 ABNORMAL ECG Electronically Signed On 01-26-2020 15:29:18 CDT by Elgin Maurice D.O.
--- NOTE | 2020-01-26 15:25 | ED.SOB ---
HPI - SOB/Dyspnea General Chief Complaint: Shortness of Breath/Dyspnea Stated Complaint: Sob Time Seen by Provider: 01/26/20 15:25 History of Present Illness HPI Narrative: SOB with pressure in her right lung today. No pain. Just discharged from rehab yesterday. Seen here for a PE at the begining of this month and transfer on patient request. Related Data Home Medications Medication Instructions Recorded Confirmed atorvastatin 40 mg PO HS 12/28/19 12/28/19 digoxin 125 mcg PO HS 12/28/19 furosemide 40 mg PO BID 12/28/19 metoprolol succinate 12.5 mg PO DAILY 12/28/19 Allergies Allergy/AdvReac Type Severity Reaction Status Date / Time ibuprofen [From Motrin IB] Allergy Swelling Verified 12/28/19 05:19 of the Eye morphine AdvReac Nausea and Verified 12/28/19 05:19 Vomiting Review of Systems Review of Systems: All systems reviewed & are unremarkable except as noted in HPI and below Constitutional: Constitutional: Denies chills and Denies fever(s) ENT: Denies sore throat Cardiovascular: Cardiovascular: Reports chest pain Respiratory: Respiratory: Reports cough and Reports dyspnea Gastrointestinal: Gastrointestinal: Denies nausea and Denies vomiting Genitourinary: Genitourinary: Denies dysuria Musculoskeletal: Musculoskeletal: Reports back pain Neurologic: Denies numbness and Reports weakness Psychiatric: Psychiatric: Reports anxiety [facility] Social History Social History Social History: The patient is the youngest of 5 children. She had multiple siblings who had a history of dementia. She had 1 sibling who had lung cancer. Code status: Full code per EMR Smoking packs per day: 1.5 Smoking cigarettes per day: 30.0 Years smoked: 45 Smoking pack-years: 67.50 Smoking status: Former smoker Additional smoking assessment comments: She quit smoking in 2005. Alcohol intake: never Substance use: never Substance use type: does not use Additional living arrangements comments: The patient lives with her of 49 years. She is independent in activities of daily living. She has 4 children. She reports that her 4 children her relatively healthy. 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 Gender identity (if verbalized by the patient): Female Spiritual care concerns: No Agree to blood products: Yes Exam Const: General: no acute distress, alert and ill appearing chronically Orientation/consciousness: patient oriented x3 HENMT: Head: normal to inspection Resp: Effort & Inspection: tachypneic Auscultation: rales Cardio: Rate: regular rate Rhythm: regular rhythm GI: GI Palp: Yes Soft to palpation and No Tenderness to palpation present (GI) Skin: General skin exam: normal color Neuro: General: patient oriented x3, moves all extremities and CN's II-XI intact bilaterally Speech: normal speech Extrem: General: edema bilateral Psych: Affect: Anxious affect present Course Vital Signs Vital signs: Vital Signs Temperature 36.6 C 01/26/20 15:14 Pulse Rate 74 01/26/20 15:14 Respiratory Rate 22 H 01/26/20 15:14 Blood Pressure 97/53 L 01/26/20 15:14 Pulse Oximetry 93 01/26/20 15:14 Temperature 36.6 C 01/26/20 15:14 Pulse Rate 85 01/26/20 17:53 Respiratory Rate 18 01/26/20 17:53 Blood Pressure 91/56 L 01/26/20 17:53 Pulse Oximetry 100 01/26/20 17:53 MDM - SOB/Dyspnea MDM Narrative Medical decision making narrative: She has severe CHF. This may be her baseline, but I feel she may get some benefit from diuresis. Case discussed with cardiology. They will consult. Differential Diagnosis Differential diagnosis: Likely congestive heart failure Lab Data Attestation: I reviewed the patient's lab results. Result diagrams: 01/26/20 15:55 01/26/20 15:55 Labs:
[2020-01-26 16:00] LABS: Basophils Absolute Auto 0.1 K/mm3 (0.0-0.1); Basophils Percent Auto 0.9 % (0.2-1.2); Eosinophils Absolute Auto 0.2 K/mm3 (0-0.3); Eosinophils Percent Auto 2.4 % (0-4.4); Hematocrit 38.4 % (37.0-47.0); Hemoglobin 11.6 g/dL (12.0-15.0); Immature Granulocyte Absolute 0.02 K/mm3 (0.00-0.031); Immature Granulocyte Percent A 0.2 % (0-0.5); Lymphocytes Percent Auto 25.4 % (18.3-44.2); Mean Corpuscular HGB Conc 30.2 g/dl (32-36); Mean Corpuscular Hemoglobin 28.7 pg (26-34); Mean Platelet Volume 10.7 fl (7.4-10.4); Monocytes Absolute Auto 0.9 K/mm3 (0.1-0.6); Monocytes Percent Auto 9.8 % (2.6-8.5); Neutrophils Absolute Auto 5.3 K/mm3 (1.3-6.7); Neutrophils Percent Auto 61.3 % (45.5-73.1); Platelet Count Result 457 k/mm3 (150-375); Red Blood Count 4.04 M/mm3 (4.2-5.4); Red Cell Distribution Width 15.2 % (11.5-14.5); White Blood Count 8.7 K/mm3 (4.5-10.0)
--- NOTE | 2020-01-26 16:10 | PC.NURSE ---
Patient given water per verbal okay from Dr Bowie.
[2020-01-26 16:11] LABS: Alanine Aminotransferase 15 U/L (4-35); Albumin Level 3.2 g/dL (3.5-5.1); Alkaline Phosphatase 236 U/L (38-126); Aspartate Amino Transferase 21 U/L (14-36); Bilirubin,Total 0.6 mg/dL (0.2-1.3); Blood Urea Nitrogen 23 mg/dL (7-17); Calcium 9.2 mg/dL (8.4-10.2); Carbon Dioxide 23 mmol/L (22-30); Chloride 108 mmol/L (98-107); Estimated CRCL calculation 43 ml/min; Estimated Glomerular Filt Rate 55; Glucose 138 mg/dL (65-105); Potassium 4.5 mmol/L (3.4-5.0); Sodium 136 mmol/L (137-145)
[2020-01-26 16:26] LABS: NT Pro B Type Natriuretic Pept 9040 PG/ML (5-100); Troponin I 0.049 ng/mL (0.000-0.034)
[2020-01-26] MEDS: FUROSEMIDE INJ 40 MG/4 ML VIAL IV PUSH (18:46)
--- NOTE | 2020-01-26 19:05 | ADMIMU ---
This patient, Lisa Aparicio, was admitted to IMU status, and placed in Intensive Care Unit-5. Patient/family oriented to hospital policies and general routines including ID bracelet, bed and alarms, visiting hours, pain management, procedures, bathroom and other care routines, personal items, smoking policy, room service/diet, and visiting hours. Valuables list has been completed. Information on how to activate the Rapid Response Team has been discussed. Patient/Family are encouraged to report perceived risks to care and to ask questions if they do not understand what they are told or what they should do.
--- NOTE | 2020-01-26 21:48 | PC.NURSE ---
Upon arrival to the ICU, pt had a new water pitcher with 250 ml of water in it to comply with physician ordered fluid restriction. Pt states she will not drink dirty water or drink out of a used water pitcher. Explained that water was placed in it in anticipation of her arrival. Pt continued to refused. A cup of ice water was brought to pt's room and she again refused stating the water was dirty. Staff later helped pt up to BSC. Pt states I sure would like some water. Staff pointed out that water is sitting within her reach on her bedside table. Pt states that the doctor can drink that. Would you drink dirty water? Home medications ordered for pt to begin taking tonight. Staff asked pt if she would take her pills. She stated that she would. When asked if she would like milk or juice to drink with her medication, pt states she will not drink anything or take her pills because you don't want me to have it anyway. I will wait until I get home. Pt states she is going home on hospice. Defensive about admission questions. Charge nurse discussed pt's care with her family over the phone. Dr. Zabala was updated to pt's behavior and desire to go home on hospice.
--- NOTE | 2020-01-26 21:53 | PC.NURSE ---
Spoke with patients Tino and their daughter to verify patients statement that she was to go on hospice tomorrow. Daughter states an occupational therapist was supposed to be coming to the house and they were looking at getting pt on hospice in next couple of weeks. Daughter states that she had conversation with her Mother several weeks ago about what care she wanted and she had stated if there was a chance of recovery she wanted everything done but as of yesterday her mother stated she wanted to go on hospice. Tino verifies this. Pt was home for one day and did not eat anything, only drank a little bit, and daughter was able to get patient to take pills this AM only. Informed that patient is currently refusing medications and will not drink anything. Will call family with further updates. can be reached at [phone].
--- NOTE | 2020-01-26 22:33 | PC.NURSE ---
Notified pt's daugther that her code status is being changed to DNR and a hospice consult has been entered. Family verbalized understanding. States she has no questions at this time. States my mom has been sick with her heart for awhile. She told me yesterday that she is tired and wants to go home. Staff told family they could call with any questions and that they would be updated with any changes.
--- NOTE | 2020-01-26 22:50 | PC.NURSE ---
Offered pt apple juice with evening medication. Pt states why would you give me apple juice of all things? I will wait until I get home. You are not doing your job. Pt refused all medication. States she does not take Zoloft.
--- NOTE | 2020-01-26 23:15 | PC.NURSE ---
Pt's daughter called to ICU. States the pt called her and must be confused. States that pt does not want to be a DNR and does not want a hospice consult. Code status changed back to full code. Hospice consult not discontinued at this time.
[2020-01-27] VITALS (16 sets, daily range): BP systolic 84–105; BP diastolic 48–64; PULSE 79–106; RESP 16–28; TEMP 35.7–36.2; O2SAT 97–100
[2020-01-27] MEDS: CLOPIDOGREL BISULFATE 75 MG TABLET PO (08:15)
[2020-01-27] MEDS: APIXABAN 5 MG TABLET PO ×2 (08:15→20:38)
[2020-01-27] MEDS: FUROSEMIDE INJ 40 MG/4 ML VIAL IV PUSH ×2 (08:15→21:37)
[2020-01-27] MEDS: SPIRONOLACTONE 25 MG TABLET PO (08:15)
--- NOTE | 2020-01-27 09:11 | PM.IMHP ---
H&P: HPI History of Present Illness Chief complaint: CHF Narrative: Lisa Aparicio is a 69 year old female with CHF, DM and CAD here for increasing SOB. Patient has hx of CAD s/p CABG x3v in 2005. She was doing well up until end of October when she was hospitalized here for STEMI. She was found to have occlusion of the SVG to the large OM, treated with thrombolytics and later stenting of the SVG and OM with 3 stents. She was discharged on 12/05/19. She returned to ER 12/06 for vaginal bleeding and found to have endometrial thickening. She states the bleeding has slowed. She was again seen on 12/28/19 and found to have PE RLL, CHF and elevated Trop. She requested transfer to [facility]. She was hospitalized for 1 week and had what sounds like a IVC filter placed. She has Eliquis as a home med listed. She was sent to [facility]. At [place], she continued to have complaints of SOB and CP. She laso has been having orthopneic symptoms more chronically. She developed pedal edema since October that improved intially but she states legs are more edematous past week. She does not know if she has gained weight. She was unhappy with the care she received at [facility] ('pushing on my chest', 'talking mean to me', 'denied oxygen'). Patient was discharged home on 01/25/20 and did well until the next morning when she developed worsening SOB. No cough, fever or chills. Also with central chest pain that radiated to the right shoulder. No n/v or abdominal pain. She was having pleuritic back pain as well. She has been anxious since her heart cath in October 2019. She also has been having palpitations past few weeks but only lasts a brief time. No dysuria or hematuria. No hx of seizures or CVA. Glucose well controlled and she checks this twice per day. Patient presents to the ER. BP 97/53. CXR consistent with CHF. COVID test ordered. Lasix IV given and continued since admission. Trop elevated at 0.049 and BNP 9040. EKG showing poor R wave progresion and nonspecific ST-T wave changes. She was admitted for further care. Review of Systems Review of Systems: All systems reviewed & are unremarkable except as noted in HPI and below PMFSH Past Medical History Medical History CAD (coronary artery disease) CHF (congestive heart failure) Echocardiogram 11/27/2019: Summary 1. Severe left ventricular dysfunction is present. Ejection fraction visually is 25-30%, and measured is 33%. There is akinesis of the posterior lateral, distal inferior, proximal, mid and distal lateral mclaughlin, severe hypokinesis of the mid distal septum and mild hypokinesis of the inferior wall and mid and proximal septum. 2. Normal left ventricular size with mild concentric hypertrophy. Diastolic dysfunction is present. 3. There is moderate mitral valve regurgitation. 4. There is moderate tricuspid valve regurgitation. 5. Left atrial chamber dimension is moderately enlarged. 6. Technically difficult study, definity echo contrast used. Diabetic peripheral neuropathy associated with type 2 diabetes mellitus Myocardial infarction STEMI 11/26/2019 Obstructive sleep apnea Pulmonary embolism 12/28/19 of the RLL Type 2 diabetes mellitus Surgical History Surgical History History of coronary artery bypass graft x 3 History of right cataract extraction Hx of cholecystectomy Hx of tonsillectomy Family History Family History Mother Heart disease CHF (congestive heart failure) Father Lung cancer Dementia Sibling CHF (congestive heart failure) Dementia Social History Social History Social History: The patient is the youngest of 5 children. Quit tobacco inn 2003 after smoking 1.5ppd since age 9yo. No alcohol or drug
[2020-01-27] MEDS: POTASSIUM CHLORIDE 20 MEQ TABLET.ER PO (09:23)
[2020-01-27] MEDS: METOPROLOL SUCCINATE EXT REL 25 MG TABCR PO (09:23)
[2020-01-27] MEDS: metFORMIN HCL 500 MG TABLET PO ×2 (09:23→17:04)
[2020-01-27] MEDS: MEGESTROL ACETATE (*CHEMO) 40 MG TABLET PO (09:23)
[2020-01-27] MEDS: GLIMEPIRIDE 2 MG TABLET PO (09:23)
--- NOTE | 2020-01-27 10:17 | PM.CNCAR ---
Assessment and Plan Assessment and plan (1) CHF (congestive heart failure): Qualifiers: Heart failure type: systolic Heart failure chronicity: acute Qualified Code(s): I50.21 - Acute systolic (congestive) heart failure Code(s): I50.9 - Heart failure, unspecified Status: Acute Assessment and Plan: Complex clinical picture with severe LV dysfunction resulting from ST-elevation MO 11/26/2019. Shortness of breath complaints have been present ever since her myocardial infarction without significant improvement and worsening dyspnea after arriving home for rehabilitation prompting her to present to the ER for evaluation. She denies missing any medications including diuretics. Be in pea elevated, chest x-ray with evidence of pulmonary vascular congestion. No improvement with IV diuresis thus far. -2D echo in a.m. to assess LV function, wall motion, pericardium, valve pathology, pulmonary pressures. -patient claims she cannot breathe without oxygen despite stable oxygen saturations 100% on 2 L nasal cannula -defer bronchodilator therapy to primary service as appropriate. -IV Lasix 40mg BID, monitor electrolytes and renal function closely. (2) Chest pain: Code(s): R07.9 - Chest pain, unspecified Status: Acute Assessment and Plan: Pt reports essentially chronic chest pain since her MO end of October with pleuritic component worse with deep breathing symptoms worse lying down. No electrocardiographic or enzyme evidence of acute infarction, symptom pattern not consistent with escalating or unstable angina. Consider post myocardial infarction chest pain syndrome although now toward end of anticipated time frame post MO (8 weeks). -Check CRP, ESR. Avoid NSAIDs, colchicine an option for would exclude other considerations initially. Symptoms predated pulmonary embolism and pt reports were not present prior to her myocardial infarction. -Atypical chest pain symptoms. Trend serial troponins. Repeat 12 lead EKG in a.m.. EKG compared to prior tracings improved but consistent with completed infarction. (3) CAD (coronary artery disease): Code(s): I25.10 - Atherosclerotic heart disease of [place] coronary artery without angina pectoris Status: Acute Assessment and Plan: 11/26/2019 ST-elevation MO initially treated thrombolytics followed by complex intervention to SVG to large OM and anastomosis into [place] OM branch 4.0 x 22 mm sirolimus in SVG, 2.75 x 18 mm sirolimus at anastomosis, and 2.5 x 22 mm sirolimus drug-eluting stent [place] OM. -continue clopidogrel as she is on Apixaban for PE. (4) Ischemic cardiomyopathy: Code(s): I25.5 - Ischemic cardiomyopathy Status: Acute Assessment and Plan: EF 25-30% with akinesis of the posterolateral wall, distal inferior, proximal, mid and distal lateral mclaughlin and severe hypokinesis of the distal septum. Moderate MR/TR. Patient was discharged on lisinopril 2.5 mg from this hospital but returns without this medication on her list. She was started on digoxin for unclear reasons. Ivabradine started post MO due to persistent tachycardia and inability to uptitrate BB due to hypotension. -Cont Ivabradine for now. Would like to consider Entresto if BP would allow. -Cont IV diuresis, accurate I/O, daily weights. -Repeat 2D echo in AM -check digoxin level (5) Pulmonary embolism: Code(s): I26.99 - Other pulmonary embolism without acute cor pulmonale Status: Acute Assessment and Plan: 12/28/2019 single PE segmental, common trunk of the posterior and lateral basilar segmental pulmonary arteries of right lower lobe started on Eliquis after transfer to outside facility [facility]. Patient reports having an IVC filter placed. Details in this regard are not available at this time. Patient claims absolute compliance with her anticoagulation. (6) Type 2 diabetes mellitus: Code(s): E11.9 - Type 2 diabetes m
[2020-01-27 11:14] LABS: Basophils Absolute Auto 0.1 K/mm3 (0.0-0.1); Basophils Percent Auto 1.3 % (0.2-1.2); Eosinophils Absolute Auto 0.1 K/mm3 (0-0.3); Eosinophils Percent Auto 1.3 % (0-4.4); Hematocrit 36.2 % (37.0-47.0); Hemoglobin 10.8 g/dL (12.0-15.0); Immature Granulocyte Absolute 0.03 K/mm3 (0.00-0.031); Immature Granulocyte Percent A 0.3 % (0-0.5); Lymphocytes Absolute Auto 1.38 K/mm3 (0.9-3.2); Mean Corpuscular HGB Conc 29.8 g/dl (32-36); Mean Corpuscular Hemoglobin 28.6 pg (26-34); Monocytes Absolute Auto 0.9 K/mm3 (0.1-0.6); Monocytes Percent Auto 9.7 % (2.6-8.5); Neutrophils Absolute Auto 6.7 K/mm3 (1.3-6.7); Neutrophils Percent Auto 72.4 % (45.5-73.1); Platelet Count Result 441 k/mm3 (150-375); Red Blood Count 3.77 M/mm3 (4.2-5.4); Red Cell Distribution Width 15.1 % (11.5-14.5); White Blood Count 9.2 K/mm3 (4.5-10.0)
[2020-01-27 11:27] LABS: Alanine Aminotransferase 14 U/L (4-35); Albumin Level 2.9 g/dL (3.5-5.1); Alkaline Phosphatase 216 U/L (38-126); Aspartate Amino Transferase 19 U/L (14-36); Bilirubin,Total 0.8 mg/dL (0.2-1.3); Blood Urea Nitrogen 22 mg/dL (7-17); Calcium 9.1 mg/dL (8.4-10.2); Carbon Dioxide 21 mmol/L (22-30); Chloride 108 mmol/L (98-107); Estimated CRCL calculation 51 ml/min; Estimated Glomerular Filt Rate > 60; Glucose 114 mg/dL (65-105); Magnesium 1.6 mg/dL (1.6-2.3); Phosphorus 4.1 mg/dL (2.5-4.5); Potassium 4.2 mmol/L (3.4-5.0); Sodium 140 mmol/L (137-145)
[2020-01-27 11:41] LABS: Troponin I 0.049 ng/mL (0.000-0.034)
[2020-01-27 11:58] LABS: Hemoglobin A1C 6.9 % (<5.7)
[2020-01-27 13:15] LABS: Free T4 Free Thyroxine Reflex 1.52 ng/dL (0.78-2.19)
[2020-01-27 14:07] LABS: Total Triiodothyronine (T3) 0.96 NG/ML (0.97-1.69)
[2020-01-27 14:41] LABS: Glucose Point of Care 65 (65-105)
[2020-01-27 17:11] LABS: Glucose Point of Care 109 (65-105)
[2020-01-27 17:34] LABS: Erythrocyte Sedimentation Rate 124 mm/hr (0-20)
[2020-01-27] MEDS: ATORVASTATIN 40 MG TABLET PO (20:37)
[2020-01-27] MEDS: SERTRALINE HCL 50 MG TABLET PO (20:37)
[2020-01-27] MEDS: ACETAMINOPHEN 325 MG TABLET 650 MG PO (20:38)
[2020-01-27] MEDS: ALPRAZOLAM 0.25 MG TABLET PO (23:03)
[2020-01-28] VITALS (16 sets, daily range): BP systolic 91–114; BP diastolic 48–65; PULSE 89–106; RESP 11–28; TEMP 35.6–36.7; O2SAT 94–100
[2020-01-28] MEDS: ACETAMINOPHEN 325 MG TABLET 650 MG PO (02:33)
[2020-01-28 04:35] LABS: Basophils Absolute Auto 0.1 K/mm3 (0.0-0.1); Basophils Percent Auto 1.1 % (0.2-1.2); Eosinophils Absolute Auto 0.4 K/mm3 (0-0.3); Eosinophils Percent Auto 3.6 % (0-4.4); Hematocrit 34.5 % (37.0-47.0); Hemoglobin 10.7 g/dL (12.0-15.0); Immature Granulocyte Absolute 0.04 K/mm3 (0.00-0.031); Immature Granulocyte Percent A 0.4 % (0-0.5); Lymphocytes Percent Auto 28.7 % (18.3-44.2); Mean Corpuscular Hemoglobin 28.8 pg (26-34); Monocytes Absolute Auto 1.1 K/mm3 (0.1-0.6); Monocytes Percent Auto 11.6 % (2.6-8.5); Neutrophils Absolute Auto 5.3 K/mm3 (1.3-6.7); Neutrophils Percent Auto 54.6 % (45.5-73.1); Platelet Count Result 448 k/mm3 (150-375); Red Blood Count 3.71 M/mm3 (4.2-5.4); Red Cell Distribution Width 14.9 % (11.5-14.5); White Blood Count 9.8 K/mm3 (4.5-10.0)
[2020-01-28 04:53] LABS: Albumin Level 2.8 g/dL (3.5-5.1); Blood Urea Nitrogen 26 mg/dL (7-17); Carbon Dioxide 22 mmol/L (22-30); Chloride 109 mmol/L (98-107); Estimated CRCL calculation 42 ml/min; Estimated Glomerular Filt Rate 49; Glucose 84 mg/dL (65-105); Magnesium 1.7 mg/dL (1.6-2.3); Phosphorus 3.6 mg/dL (2.5-4.5); Potassium 4.3 mmol/L (3.4-5.0); Sodium 137 mmol/L (137-145)
[2020-01-28 05:59] LABS: Folic Acid 8.9 ng/mL (2.76->20)
[2020-01-28 06:00] LABS: Iron 41 ug/dL (37-170)
[2020-01-28 06:01] LABS: Percent Iron Saturation 13 % (20-50)
[2020-01-28] MEDS: ALPRAZOLAM 0.25 MG TABLET PO ×2 (08:51→22:39)
[2020-01-28] MEDS: POTASSIUM CHLORIDE 20 MEQ TABLET.ER PO (08:52)
[2020-01-28] MEDS: METOPROLOL SUCCINATE EXT REL 25 MG TABCR PO (08:52)
[2020-01-28] MEDS: metFORMIN HCL 500 MG TABLET PO (08:52)
[2020-01-28] MEDS: CLOPIDOGREL BISULFATE 75 MG TABLET PO (08:52)
[2020-01-28] MEDS: MEGESTROL ACETATE (*CHEMO) 40 MG TABLET PO (08:52)
[2020-01-28] MEDS: APIXABAN 5 MG TABLET PO ×2 (08:52→22:40)
[2020-01-28] MEDS: FUROSEMIDE INJ 40 MG/4 ML VIAL IV PUSH ×2 (08:53→22:40)
[2020-01-28] MEDS: SPIRONOLACTONE 25 MG TABLET PO (08:53)
[2020-01-28] MEDS: GLIMEPIRIDE 2 MG TABLET PO (08:53)
[2020-01-28] MEDS: DIGOXIN 250 MCG TABLET BY MOUTH (08:53)
[2020-01-28 09:49] LABS: SARS-CoV-2 RNA PCR Negative
[2020-01-28 11:16] LABS: Glucose Point of Care 68 (65-105)
--- NOTE | 2020-01-28 11:19 | ECHO_ITS ---
Patient Info Name: Lisa Aparicio Age: 69 years : 1950 Gender: Female Ht: 63 in Wt: 179 lbs BSA: 1.93 m2 HR: 94 bpm BP: 91 / 46 mmHg Heart Rhythm: Sinus Rhythm Technical Quality: Good Exam Date: 01/28/2020 1:22 PM Exam Location: [facility] Patient Status: Inpatient Admit Date: 01/26/2020 Staff Ordering Physician: Chen Todd APRN Policy Change Clerk: Anupam Perez RDCS Attending Provider: Connor William MD Referring Physician: Perez CAIN; Exam Type: CA echo dop color flow w con Study Info Indications I50.9 - Heart failure, unspecified Complete two-dimensional, color flow and Doppler transthoracic echocardiogram is performed with contrast to opacify the left ventricle and to improve the deliniation of the left ventricle endocardial borders. Strain analysis performed. Contrast/Agitated Saline Contrast/Ag. Saline: Definity Amount: 2.00 ml Existing IV Access: Yes History/Risk Factors CAD w/ STEMI 10/2019; CHF w/BNP 9040, DM2, SOB. Summary 1. Borderline LV enlargement and wall thickness. Severe global LV systolic dysfunction, ejection fraction 20-25%; grade 3/4 diastolic dysfunction. Abnormal GLS -6.6. Mild left atrial enlargement. Mild mitral annular calcification, moderate mitral regurgitation. Sclerotic aortic valve, mild aortic stenosis, valve area 2 cm2. [id number] TR, severe pulmonary hypertension, RVSP 70 mmHg. Dilated IVC without respiratory collapse. Left Ventricle Left ventricular chamber dimension is mildly enlarged. Left ventricular systolic function is severely reduced, estimated at 20-25%. There is no increased left ventricular wall thickness. Left ventricular septal wall motion is normal. The left ventricular diastolic function is grade IV diastolic dysfunction. Right Ventricle Right ventricular chamber dimension is mildly enlarged. Right ventricular systolic function is reduced. Left Atria Left atrial chamber dimension is mildly enlarged. Right Atria Right atrial chamber dimension is normal. Aortic Valve The aortic valve is trileaflet. There is mild aortic valve sclerosis. There is mild aortic valve stenosis. There is no aortic valve regurgitation. Pulmonic Valve The pulmonic valve is not well visualized. There is trace pulmonic regurgitation. Mitral Valve The mitral valve has thickened leaflets. There is moderate mitral valve regurgitation. The mitral valve annulus is mildly calcified. Tricuspid Valve The tricuspid valve leaflets are normal. There is mild to moderate tricuspid valve regurgitation. Severe pulmonary hypertension, estimated pulmonary arterial systolic pressure is 70 mmHg. Pericardium/Pleural The pericardium appears normal. There is no pericardial effusion. Inferior Vena Cava Dilated inferior vena cava with no collapse upon inspiration consistent with Empty right atrial pressure, 15 mmHg. Aorta The aortic root size at the sinus of Valsalva is normal. The prox ascending aorta size is normal. Tricuspid Valve Name Value Normal Estimated PAP/RSVP RA Pressure 15 mmHg <=5 PA Systolic Pressure 70 mmHg <36 Repor
[2020-01-28] MEDS: PERFLUTREN LIPID MICROSPHERES 1.5 ML VIAL DILUTED TO 10 ML TOTAL VOLUME IV PUSH (14:13)
--- NOTE | 2020-01-28 15:19 | PM.IMPN ---
Progress Note: A&P Assessment and Plan (1) Acute exacerbation of CHF (congestive heart failure): Qualifiers: Heart failure type: unspecified Qualified Code(s): I50.9 - Heart failure, unspecified Code(s): I50.9 - Heart failure, unspecified Status: Acute Assessment and Plan: Chest x-ray reviewed showing interstitial edema pleural effusions. Pneumonia felt to be less likely. BNP 9040. Patient appears to acute worsening chronic CHF symptoms. Echo in October showing EF of 25-30% with significant wall motion abnormalities. She also had moderate MR and TR as well. Good urine output yesterday. Continue IV Lasix for today. Continue spironolactone, beta-malorie. Repeat echo pending. Repeat chest x-ray in the morning. (2) Chest pain: Code(s): R07.9 - Chest pain, unspecified Status: Acute Assessment and Plan: Patient with atypical chest pain. Troponin slightly elevated but could be related to the CHF. EKG reviewed showing poor R progression nonspecific ST T wave changes but no acute findings. Repeat troponin flat. ESR 127; consider post-NV pericardial inflammatory etiology causing her CP. Continue current medical regiment. Appreciate Cardiology input. (3) Type 2 diabetes mellitus: Code(s): E11.9 - Type 2 diabetes mellitus without complications Status: Acute Assessment and Plan: A1c 13.9 in October but 6.9 here. Glucose reviewed on 01/28/2020. Glucose well controlled. Continue sliding scale protocol. Hypoglycemia protocol started as well. Will continue the metformin and Amaryl for now. (4) Palpitations: Code(s): R00.2 - Palpitations Status: Acute Assessment and Plan: Patient complains of palpitations. Digoxin has been added since last hospitalization here for unclear reasons. No dysrhythmias by telemetry. Will continue telemetry. Old records have been requested. (5) CAD (coronary artery disease): Code(s): I25.10 - Atherosclerotic heart disease of [place] coronary artery without angina pectoris Status: Acute Assessment and Plan: Patient with history of CABG x3 vessel and more recently with ST-elevation NV in October resulting in significant wall motion abnormalities. Continue appropriate medical management with Lipitor, Plavix, and Toprol. (6) Pulmonary embolism: Code(s): I26.99 - Other pulmonary embolism without acute cor pulmonale Status: Acute Assessment and Plan: Patient with CT chest on 12/28/19 showing PE of the RLL. She was transferred to [facility] at that time. She is on Eliquis on admission here. She mentions that she had IVC filter placed but not seen on CXR. Old records ordered but not available yet. (7) Anemia: Code(s): D64.9 - Anemia, unspecified Status: Acute Assessment and Plan: Hgb low but stable in the 10-11 range. B12 normal. Iron studies normal but low percent saturation and low normal ferritin. May have mild iron deficiency. No evidence of acute blood loss. Could also be anemia of chronic disease. She may have underlying inflammatory process given her elevated ESR. Continue to follow hemoglobin. (8) COVID-19 virus test result unknown: Code(s): Z20.828 - Contact with and (suspected) exposure to other viral communicable diseases Status: Acute Assessment and Plan: Patient recently at a long term. She did test negative for COVID at the long term. COVID testing negative here as well. Stop isolation Subjective Date/time seen: 01/28/20 15:19 Interval history: 69yo female with CHF, DM and CAD here for increasing CHF exacerbation. She has been up to the chair today. Still feels SOB when laying flat and with exertion (like getting out of bed or talking on the phone). She is very worried about personal things. No change in her leg edema. She slept well but feels tired today. Exam Narrative: E
--- NOTE | 2020-01-28 15:24 | PM.PNCARD ---
Progress Note: A&P Assessment and Plan (1) CHF (congestive heart failure): Qualifiers: Heart failure chronicity: acute Heart failure type: systolic Qualified Code(s): I50.21 - Acute systolic (congestive) heart failure Code(s): I50.9 - Heart failure, unspecified Status: Acute Assessment and Plan: Complex clinical picture with severe LV dysfunction resulting from ST-elevation MO 11/26/2019. Shortness of breath complaints have been present ever since her myocardial infarction without significant improvement and worsening dyspnea after arriving home for rehabilitation prompting her to present to the ER for evaluation. She denies missing any medications including diuretics. BNP elevated, chest x-ray with evidence of pulmonary vascular congestion. Some improvement with IV diuresis. -2D echo in a.m. to assess LV function, wall motion, pericardium, valve pathology, pulmonary pressures is pending. -She claims she cannot breathe without oxygen despite stable oxygen saturations 100% on 2 L nasal cannula. Angry when try to wean it off. -defer bronchodilator therapy to primary service as appropriate. -Continue IV Lasix 40mg BID. Continue to monitor electrolytes and renal function closely. Supplement magnesium. (2) Chest pain: Qualifiers: Chest pain type: unspecified Qualified Code(s): R07.9 - Chest pain, unspecified Code(s): R07.9 - Chest pain, unspecified Status: Acute Assessment and Plan: On assessment 01/27/[address] Chávez had she had essentially chronic chest pain since her MO end of October with pleuritic component worse with deep breathing symptoms worse lying down. No electrocardiographic or enzyme evidence of acute infarction, symptom pattern not consistent with escalating or unstable angina. Consider post myocardial infarction chest pain syndrome although now toward end of anticipated time frame post MO (8 weeks). Symptoms predated pulmonary embolism and she reports were not present prior to her myocardial infarction. -Atypical chest pain symptoms. Troponin 0.049 x2. EKG compared to prior tracings improved but consistent with completed infarction. Check CRP 3.0. ESR one hundred twenty-four. Avoid NSAIDs, colchicine an option for would exclude other considerations initially. She would not tell me if she has continued to have any chest pain. ?Would do any good if I would told you any how?. (3) CAD (coronary artery disease): Qualifiers: Coronary Disease-Associated Artery/Lesion type: [place] artery [place] vs. transplanted heart: [place] heart Associated angina: angina presence unspecified Qualified Code(s): I25.10 - Atherosclerotic heart disease of [place] coronary artery without angina pectoris Code(s): I25.10 - Atherosclerotic heart disease of [place] coronary artery without angina pectoris Status: Acute Assessment and Plan: 11/26/2019 ST-elevation MO initially treated thrombolytics followed by complex intervention to SVG to large OM and anastomosis into [place] OM branch 4.0 x 22 mm sirolimus in SVG, 2.75 x 18 mm sirolimus at anastomosis, and 2.5 x 22 mm sirolimus drug-eluting stent [place] OM. -continue clopidogrel as she is on Apixaban for PE. (4) Ischemic cardiomyopathy: Code(s): I25.5 - Ischemic cardiomyopathy Status: Acute Assessment and Plan: EF 25-30% with akinesis of the posterolateral wall, distal inferior, proximal, mid and distal lateral mclaughlin and severe hypokinesis of the distal septum. Moderate MR/TR. She was discharged on lisinopril 2.5 mg from this hospital but returns without this medication on her list. Ivabradine started post MO due to persistent tachycardia and inability to uptitrate BB due to hypotension. - Ivabradine has not been continued. Heart rates are reasonable. Would like to consider Entresto if BP would
[2020-01-28] MEDS: MAGNESIUM SULF 1 GM/D5W 100 ML 1 GM/100 ML BAG IVPB (16:50)
[2020-01-28 16:52] LABS: Glucose Point of Care 119 (65-105)
[2020-01-28 17:49] LABS: Magnesium 1.6 mg/dL (1.6-2.3)
--- NOTE | 2020-01-28 19:24 | PC.NURSE ---
Pt received to room 207 from ICU-via w/c accompanied by RN 's -pt returned to bed- personal belongings with pt - pt oriented to room and rountines of floor- denies pain or SOB- SR with PVC's
--- NOTE | 2020-01-28 20:24 | PC.NURSE ---
Pt asked demetria for water but is on a fluid restriction. Demetria took small styrofoam cup into room with the fluid she could have for the shift.Pt refused. Pt then yelled out shortly after saying she needed oxygen. Pt did not appear short of breath and sat checked at 96%. Pt then complained about how mean the nurse was who just told her she needed to use the call light instead of yelling out. I explained that using the call light is better so we can know where the help is needed. Pt continued to state that we were all mean and we have not given her fluids all day. I explained the purpose of a fluid restriction, but was told that I was a liar. Sat cup of water on table, but pt told me I needed to remove it. I told her I would leave it there if she wanted it.
[2020-01-28 21:02] LABS: Glucose Point of Care 110 (65-105)
--- NOTE | 2020-01-28 22:37 | PC.NURSE ---
Dr Zabala notified that pt has refused her meds. Will try again, but pt is still anxious and suspicious.
[2020-01-29] VITALS (17 sets, daily range): BP systolic 103–116; BP diastolic 47–63; PULSE 84–108; RESP 16–22; TEMP 36.1–36.7; O2SAT 96–98
[2020-01-29 03:17] LABS: Add Urine Microscopic? YES; Appearance Urine Clear (Clear); Bilirubin Urine Negative (Negative); Blood Urine 1+ (Negative); Color Urine Straw (Yellow); Glucose Urine UA Negative (Negative); Ketones Urine Negative (Negative); Leukocyte Esterase Ur 1+ LEU/UL (Negative); Mucus Urine Rare /lpf; Nitrate Urine Negative (Negative); Protein Urine 1+ mg/dL (Negative); Specific Grav Ur 1.011 (1.001-1.035); Squamous Epithelial Cell Urine Rare /hpf (Few); Urobilinogen Urine Negative mg/dL (<2.0); WBC Urine 21-30 /hpf
[2020-01-29 04:47] LABS: Blood Urea Nitrogen 28 mg/dL (7-17); Carbon Dioxide 22 mmol/L (22-30); Chloride 108 mmol/L (98-107); Estimated CRCL calculation 47 ml/min; Estimated Glomerular Filt Rate 55; Glucose 107 mg/dL (65-105); Magnesium 1.8 mg/dL (1.6-2.3); Sodium 137 mmol/L (137-145)
[2020-01-29] MEDS: FUROSEMIDE INJ 40 MG/4 ML VIAL IV PUSH ×2 (06:51→16:41)
[2020-01-29 07:56] LABS: Glucose Point of Care 84 (65-105)
--- NOTE | 2020-01-29 09:25 | PM.PNCARD ---
Progress Note: A&P Assessment and Plan (1) CHF (congestive heart failure): Qualifiers: Heart failure chronicity: acute Heart failure type: systolic Qualified Code(s): I50.21 - Acute systolic (congestive) heart failure Code(s): I50.9 - Heart failure, unspecified Status: Acute Assessment and Plan: patient remains short of breath. She wants to leave hospital. I reviewed her echocardiogram personally which shows severe LV systolic dysfunction, ejection fraction 20-25%, moderate MR, severe pulmonary hypertension, RVSP 70 mmHg. I spoke at length with the patient about importance of staying in the hospital to optimize her medical regimen. However, she insists that she wants to go home. Spoke with primary team. Recommend continuation of optimal medical treatment including antiplatelet therapy, anticoagulation for recent PE. Patient's overall prognosis is guarded. (2) Chest pain: Qualifiers: Chest pain type: unspecified Qualified Code(s): R07.9 - Chest pain, unspecified Code(s): R07.9 - Chest pain, unspecified Status: Acute Assessment and Plan: (3) CAD (coronary artery disease): Qualifiers: Associated angina: angina presence unspecified Coronary Disease-Associated Artery/Lesion type: [place] artery [place] vs. transplanted heart: [place] heart Qualified Code(s): I25.10 - Atherosclerotic heart disease of [place] coronary artery without angina pectoris Code(s): I25.10 - Atherosclerotic heart disease of [place] coronary artery without angina pectoris Status: Acute Assessment and Plan: 11/26/2019 ST-elevation [place] initially treated thrombolytics followed by complex intervention to SVG to large OM and anastomosis into [place] OM branch 4.0 x 22 mm sirolimus in SVG, 2.75 x 18 mm sirolimus at anastomosis, and 2.5 x 22 mm sirolimus drug-eluting stent [place] OM. -continue clopidogrel as she is on Apixaban for PE. (4) Ischemic cardiomyopathy: Code(s): I25.5 - Ischemic cardiomyopathy Status: Acute Assessment and Plan: Management as above (5) Pulmonary embolism: Qualifiers: Pulmonary embolism type: single subsegmental (without acute cor pulmonale) Qualified Code(s): I26.93 - Single subsegmental pulmonary embolism without acute cor pulmonale Code(s): I26.99 - Other pulmonary embolism without acute cor pulmonale Status: Acute Assessment and Plan: 12/28/2019 single PE segmental, common trunk of the posterior and lateral basilar segmental pulmonary arteries of right lower lobe started on Eliquis after transfer to outside facility [facility]. She reports having an IVC filter placed. Details in this regard are not available at this time. She claims absolute compliance with her anticoagulation. Continue Eliquis. (6) Type 2 diabetes mellitus: Qualifiers: Diabetes mellitus complication status: without complication Diabetes mellitus adjunct faculty for medical terminology insulin use: without adjunct faculty for medical terminology use Qualified Code(s): E11.9 - Type 2 diabetes mellitus without complications Code(s): E11.9 - Type 2 diabetes mellitus without complications Status: Acute Assessment and Plan: Was very poorly controlled hemoglobin A1c 13.9% in the end of October. 01/27/2020 6.9. Additional Plan Very depressed and hopelessness is evident. Expressed that she doesn't want to live like this taking medication that may or may not help. Just wants to go home. She stated she doesn't care if she has to sign out AMA. Subjective Date/time seen: 01/29/20 09:25 Interval history: Follow up for: acute on chronic HFrEF, chest pain, history of recent VT, PE, anticoagulation Date of service:01/28/2020 Subjective: Very tearful. Short of breath with exer
--- NOTE | 2020-01-29 10:17 | PM.IMPN ---
Progress Note: A&P Assessment and Plan (1) Acute exacerbation of CHF (congestive heart failure): Qualifiers: Heart failure type: systolic Qualified Code(s): I50.23 - Acute on chronic systolic (congestive) heart failure Code(s): I50.9 - Heart failure, unspecified Status: Acute Assessment and Plan: Cardiology consulted and appreciate input. Current echocardiogram with EF slightly lower at 20-25%, moderate mitral regurgitation and significant pulmonary hypertension. Discussed with Cardiology and subsequently with patient. Patient very much wanting to go home but advised patient she is not medically stable. After long discussion, patient is agreeable to remaining in the hospital to continue medication adjustment. Will continue digoxin, metoprolol, spironolactone and IV Lasix. Telemetry reviewed on 01/29/2020 with sinus rhythm. Able to speak with son by phone today and updated on plan. Will have PT/OT evaluate and treat. Continue to monitor. (2) Depression: Qualifiers: Depression Type: unspecified Qualified Code(s): F32.9 - Major depressive disorder, single episode, unspecified Code(s): F32.9 - Major depressive disorder, single episode, unspecified Status: Acute Assessment and Plan: Per son, has had problems since [place] in October. Already on sertraline. Will increase dose and monitor. (3) Type 2 diabetes mellitus: Qualifiers: Diabetes mellitus complication status: without complication Diabetes mellitus termite control technician insulin use: without termite control technician use Qualified Code(s): E11.9 - Type 2 diabetes mellitus without complications Code(s): E11.9 - Type 2 diabetes mellitus without complications Status: Acute Assessment and Plan: Hemoglobin A1c 13.9 in October 2019. Glucose reviewed on 01/29/2020 and presently stable. Will continue metformin. Sliding scale insulin available. Will continue to monitor and adjust treatment as needed. (4) CAD (coronary artery disease): Qualifiers: Associated angina: angina presence unspecified Coronary Disease-Associated Artery/Lesion type: [place] artery [place] vs. transplanted heart: [place] heart Qualified Code(s): I25.10 - Atherosclerotic heart disease of [place] coronary artery without angina pectoris Code(s): I25.10 - Atherosclerotic heart disease of [place] coronary artery without angina pectoris Status: Acute Assessment and Plan: Known coronary artery disease with recent ST-elevation [place] in October 2019. Echocardiogram as noted above. Cardiology following. Review old records when available. (5) Chest pain: Qualifiers: Chest pain type: unspecified Qualified Code(s): R07.9 - Chest pain, unspecified Code(s): R07.9 - Chest pain, unspecified Status: Acute Assessment and Plan: No complaint today. Mild elevation of troponin level but flat. Will continue to monitor with treatment of CHF. (6) Palpitations: Code(s): R00.2 - Palpitations Status: Acute Assessment and Plan: No further palpitations at this time. Continue cardiac treatment as noted above. (7) Pulmonary embolism: Qualifiers: Pulmonary embolism type: single subsegmental (without acute cor pulmonale) Qualified Code(s): I26.93 - Single subsegmental pulmonary embolism without acute cor pulmonale Code(s): I26.99 - Other pulmonary embolism without acute cor pulmonale Status: Acute Assessment and Plan: Patient with CT chest on 12/28/2019 with pulmonary embolism in the right lower lobe. She was transferred to [facility] at that time. Does have IVC filter confirmed by son. Remains on Eliquis. Currently on room air. Will monitor. (8) COVID-19 ruled out: Code(s): Z03.818 - Encounter for observation for suspected exposure to other biological agents ruled out Status: Acute Assessment and Plan: COVID-19 testing negative. Time Spent With
[2020-01-29 11:49] LABS: Glucose Point of Care 76 (65-105)
--- NOTE | 2020-01-29 12:11 | PC.NURSE ---
0900--Spoke with Dr. Gutierrez that pt refusing medications; pt wanting to go home-upset she is on fluid restriction- refused breakfast and a drink even though water was offered ; Dr. Gutierrez into see pt -after long discussion -pt agreed to treatment/medication ; Spoke with son updated on pt refusing medications- son attempted to talk with his mother but pt still refused 1000- when this nurse to am medications in again pt refused
[2020-01-29 16:14] LABS: Glucose Point of Care 61 (65-105)
[2020-01-29] MEDS: SPIRONOLACTONE 25 MG TABLET PO (16:40)
[2020-01-29] MEDS: APIXABAN 5 MG TABLET PO (16:40)
[2020-01-29] MEDS: METOPROLOL SUCCINATE EXT REL 25 MG TABCR PO (16:40)
[2020-01-29] MEDS: CLOPIDOGREL BISULFATE 75 MG TABLET PO (16:40)
[2020-01-29] MEDS: DEXTROSE 50% 25 GM/50 ML SYRINGE IV PUSH (16:41)
[2020-01-29 16:56] LABS: Glucose Point of Care 152 (65-105)
[2020-01-29 21:06] LABS: Glucose Point of Care 112 (65-105)
[2020-01-29] MEDS: ALPRAZOLAM 0.25 MG TABLET PO (21:16)
[2020-01-29] MEDS: ATORVASTATIN 40 MG TABLET PO (21:17)
[2020-01-30] VITALS (16 sets, daily range): BP systolic 96–110; BP diastolic 53–69; PULSE 73–109; RESP 12–20; TEMP 35.6–36.8; O2SAT 96–99
[2020-01-30 04:48] LABS: Blood Urea Nitrogen 27 mg/dL (7-17); Calcium 9.1 mg/dL (8.4-10.2); Carbon Dioxide 26 mmol/L (22-30); Chloride 107 mmol/L (98-107); Estimated CRCL calculation 52 ml/min; Estimated Glomerular Filt Rate > 60; Glucose 73 mg/dL (65-105); Magnesium 1.7 mg/dL (1.6-2.3); Potassium 3.9 mmol/L (3.4-5.0); Sodium 136 mmol/L (137-145)
[2020-01-30] MEDS: FUROSEMIDE INJ 40 MG/4 ML VIAL IV PUSH (05:59)
[2020-01-30] MEDS: GLUCOSE ORAL GEL 15 GM OF GLUCSE IN 37.5 GM TUBE PO (07:31)
[2020-01-30 07:50] LABS: Glucose Point of Care 63 (65-105)
[2020-01-30 08:05] LABS: Glucose Point of Care 99 (65-105)
[2020-01-30] MEDS: APIXABAN 5 MG TABLET PO (09:35)
[2020-01-30] MEDS: POTASSIUM CHLORIDE 20 MEQ TABLET.ER PO (09:35)
[2020-01-30] MEDS: metFORMIN HCL 500 MG TABLET PO ×2 (09:35→16:26)
[2020-01-30] MEDS: SPIRONOLACTONE 25 MG TABLET PO (09:36)
[2020-01-30] MEDS: CLOPIDOGREL BISULFATE 75 MG TABLET PO (09:36)
[2020-01-30] MEDS: DIGOXIN 250 MCG TABLET BY MOUTH (09:36)
[2020-01-30] MEDS: MEGESTROL ACETATE (*CHEMO) 40 MG TABLET PO (09:36)
[2020-01-30] MEDS: GLIMEPIRIDE 2 MG TABLET PO (09:37)
[2020-01-30] MEDS: METOPROLOL SUCCINATE EXT REL 25 MG TABCR PO (09:37)
[2020-01-30 11:41] LABS: Glucose Point of Care 162 (65-105)
--- NOTE | 2020-01-30 11:58 | PM.PNCARD ---
Progress Note: A&P Assessment and Plan (1) CHF (congestive heart failure): Qualifiers: Heart failure chronicity: acute Heart failure type: systolic Qualified Code(s): I50.21 - Acute systolic (congestive) heart failure Code(s): I50.9 - Heart failure, unspecified Status: Acute Assessment and Plan: She continues to complain of smothery feeling. Oxygen saturations on room air remains 96-99%.th. Echocardiogram shows severe LV systolic dysfunction, ejection fraction 20-25%, moderate MR, severe pulmonary hypertension, RVSP 70 mmHg. Blood pressure soft. Tolerating Metoprolol succinate 25 mg daily, spironolactone 25 mg daily and furosemide 40 mg IV push every 12 hours. Will leave adding any other medications as an outpatient up to her established certified travel counselor in [place]. Magnesium 1.7 with some ectopic beats. Magnesium 2 Gm IVBP today. Check magnesium in the morning. Prognosis is guarded at best. (2) Chest pain: Qualifiers: Chest pain type: unspecified Qualified Code(s): R07.9 - Chest pain, unspecified Code(s): R07.9 - Chest pain, unspecified Status: Acute Assessment and Plan: Denied any chest discomfort. (3) CAD (coronary artery disease): Qualifiers: Associated angina: angina presence unspecified Coronary Disease-Associated Artery/Lesion type: [place] artery [place] vs. transplanted heart: [place] heart Qualified Code(s): I25.10 - Atherosclerotic heart disease of [place] coronary artery without angina pectoris Code(s): I25.10 - Atherosclerotic heart disease of [place] coronary artery without angina pectoris Status: Acute Assessment and Plan: 11/26/2019 ST-elevation [place] initially treated thrombolytics followed by complex intervention to SVG to large OM and anastomosis into [place] OM branch 4.0 x 22 mm sirolimus in SVG, 2.75 x 18 mm sirolimus at anastomosis, and 2.5 x 22 mm sirolimus drug-eluting stent [place] OM. -continue clopidogrel as she is on Apixaban for PE. (4) Ischemic cardiomyopathy: Code(s): I25.5 - Ischemic cardiomyopathy Status: Acute Assessment and Plan: Management as above (5) Pulmonary embolism: Qualifiers: Pulmonary embolism type: single subsegmental (without acute cor pulmonale) Qualified Code(s): I26.93 - Single subsegmental pulmonary embolism without acute cor pulmonale Code(s): I26.99 - Other pulmonary embolism without acute cor pulmonale Status: Acute Assessment and Plan: 12/28/2019 single PE segmental, common trunk of the posterior and lateral basilar segmental pulmonary arteries of right lower lobe started on Eliquis after transfer to outside facility [facility]. She reports having an IVC filter placed. Details in this regard are not available at this time. She claims absolute compliance with her anticoagulation. Continue Eliquis. (6) Type 2 diabetes mellitus: Qualifiers: Diabetes mellitus complication status: without complication Diabetes mellitus snf insulin use: without snf use Qualified Code(s): E11.9 - Type 2 diabetes mellitus without complications Code(s): E11.9 - Type 2 diabetes mellitus without complications Status: Acute Assessment and Plan: Was very poorly controlled hemoglobin A1c 13.9% in the end of October. 01/27/2020 6.9. Has had some low blood sugars. Will adjust her diet so she can find something on the menu that she would eat. Additional Plan Anticipate discharge next 24-48 hours. She believes that she needs [address] Phillip 1200 01/30/2020 Subjective Date/time seen: 01/30/20 11:58 Interval history: Follow-up for: Acute on chronic HFrEF, ischemic cardiomyopathy, pulmonary embolism, l
--- NOTE | 2020-01-30 12:00 | PM.IMPN ---
Progress Note: A&P Assessment and Plan (1) Acute exacerbation of CHF (congestive heart failure): Qualifiers: Heart failure type: systolic Qualified Code(s): I50.23 - Acute on chronic systolic (congestive) heart failure Code(s): I50.9 - Heart failure, unspecified Status: Acute Assessment and Plan: Cardiology consulted and appreciate input. Current echocardiogram with EF slightly lower at 20-25%, moderate mitral regurgitation and significant pulmonary hypertension. Patient aware of severity of cardiomyopathy. Discussed with Cardiology today. Patient not yet ready to go home. Will continue current doses of digoxin, metoprolol, spironolactone and IV Lasix. IV magnesium given today with magnesium at lower end of normal. Telemetry reviewed on 01/30/2020 with occasional ectopic beats but otherwise sinus rhythm. Will continue to monitor. Continue PT/OT. Hopefully home soon with possible discharge tomorrow. Plan is to discharge home with home health. (2) Depression: Qualifiers: Depression Type: unspecified Qualified Code(s): F32.9 - Major depressive disorder, single episode, unspecified Code(s): F32.9 - Major depressive disorder, single episode, unspecified Status: Acute Assessment and Plan: Per son, has had problems since [place] in October. Sertraline dose increased yesterday. Will continue to monitor. (3) Type 2 diabetes mellitus: Qualifiers: Diabetes mellitus complication status: without complication Diabetes mellitus assisted insulin use: without supervisor intermediates use Qualified Code(s): E11.9 - Type 2 diabetes mellitus without complications Code(s): E11.9 - Type 2 diabetes mellitus without complications Status: Acute Assessment and Plan: Hemoglobin A1c 13.9 in October 2019. Glucose reviewed on 01/30/2020 and controlled. Will continue metformin. Sliding scale insulin available. Will continue to monitor and adjust treatment as needed. (4) CAD (coronary artery disease): Qualifiers: Associated angina: angina presence unspecified Coronary Disease-Associated Artery/Lesion type: [place] artery [place] vs. transplanted heart: [place] heart Qualified Code(s): I25.10 - Atherosclerotic heart disease of [place] coronary artery without angina pectoris Code(s): I25.10 - Atherosclerotic heart disease of [place] coronary artery without angina pectoris Status: Acute Assessment and Plan: Known coronary artery disease with recent ST-elevation [place] in October 2019. Echocardiogram as noted above. Cardiology following. Cardiac medications as noted above. (5) Chest pain: Qualifiers: Chest pain type: unspecified Qualified Code(s): R07.9 - Chest pain, unspecified Code(s): R07.9 - Chest pain, unspecified Status: Acute Assessment and Plan: No complaint today. Mild elevation of troponin level but flat. Will continue to monitor with treatment of CHF. (6) Palpitations: Code(s): R00.2 - Palpitations Status: Acute Assessment and Plan: No further palpitations at this time. Continue cardiac treatment as noted above. (7) Pulmonary embolism: Qualifiers: Pulmonary embolism type: single subsegmental (without acute cor pulmonale) Qualified Code(s): I26.93 - Single subsegmental pulmonary embolism without acute cor pulmonale Code(s): I26.99 - Other pulmonary embolism without acute cor pulmonale Status: Acute Assessment and Plan: Patient with CT chest on 12/28/2019 with pulmonary embolism in the right lower lobe. She was transferred to [facility] at that time. Does have IVC filter confirmed by son. Remains on Eliquis. Remains on room air. Will monitor. (8) COVID-19 ruled out: Code(s): Z03.818 - Encounter for observation for suspected exposure to other biological agents ruled out Status: Ruled-out Assessment and Plan: COVID-19 testing negative. T
[2020-01-30] MEDS: MAGNESIUM SULF 2 GM/WATER 50ML 2 GM/50 ML BAG IVPB (13:39)
[2020-01-30 16:00] LABS: Glucose Point of Care 124 (65-105)
--- NOTE | 2020-01-30 20:50 | PC.NURSE ---
PT. REFUSING ALL MEDICAL RX. MEDS. VITALS SIGNS AND ACCUCHECK/VERY ANXIOUS AND PARANOID. ERIK DONNELLY MADE AWARE OF PT. BEHAVIOR. ALSO CHARGE DAWIT HENRIQUEZ AWARE.
[2020-01-30 23:09] LABS: Glucose Point of Care 112 (65-105)
[2020-01-31] VITALS (8 sets, daily range): BP systolic 96–116; BP diastolic 53–86; PULSE 93–103; RESP 18–20; TEMP 36.5–36.8; O2SAT 96–97
[2020-01-31] MEDS: ALPRAZOLAM 0.25 MG TABLET PO (00:01)
[2020-01-31] MEDS: ACETAMINOPHEN 325 MG TABLET 650 MG PO (02:41)
[2020-01-31] MEDS: FUROSEMIDE INJ 40 MG/4 ML VIAL IV PUSH (04:39)
[2020-01-31 05:00] LABS: Blood Urea Nitrogen 29 mg/dL (7-17); Carbon Dioxide 22 mmol/L (22-30); Chloride 107 mmol/L (98-107); Estimated CRCL calculation 52 ml/min; Estimated Glomerular Filt Rate > 60; Glucose 95 mg/dL (65-105); Potassium 3.9 mmol/L (3.4-5.0); Sodium 135 mmol/L (137-145)
[2020-01-31 08:20] LABS: Glucose Point of Care 68 (65-105)
[2020-01-31] MEDS: POTASSIUM CHLORIDE 20 MEQ TABLET.ER PO (09:00)
[2020-01-31] MEDS: CLOPIDOGREL BISULFATE 75 MG TABLET PO (09:00)
[2020-01-31] MEDS: SPIRONOLACTONE 25 MG TABLET PO (09:00)
[2020-01-31] MEDS: APIXABAN 5 MG TABLET PO (09:00)
[2020-01-31] MEDS: MEGESTROL ACETATE (*CHEMO) 40 MG TABLET PO (09:01)
[2020-01-31] MEDS: METOPROLOL SUCCINATE EXT REL 25 MG TABCR PO (09:01)
[2020-01-31] MEDS: GLIMEPIRIDE 2 MG TABLET PO (09:02)
--- NOTE | 2020-01-31 10:16 | PM.IMPN ---
Progress Note: A&P Assessment and Plan (1) Acute exacerbation of CHF (congestive heart failure): Qualifiers: Heart failure type: systolic Qualified Code(s): I50.23 - Acute on chronic systolic (congestive) heart failure Code(s): I50.9 - Heart failure, unspecified Status: Acute Assessment and Plan: Cardiology consulted and appreciate input. Current echocardiogram with EF slightly lower at 20-25%, moderate mitral regurgitation and significant pulmonary hypertension. Patient aware of severity of cardiomyopathy. Clinically stabilized at this point. Will continue current doses of digoxin, metoprolol, spironolactone and IV Lasix. Will need to transition. Telemetry reviewed on 01/31/2020 with sinus rhythm. Continue PT/OT. Plan for discharge home today. Will need to follow-up with regular solutions architect consultant, Dr. Rm, as an outpatient. (2) Depression: Qualifiers: Depression Type: unspecified Qualified Code(s): F32.9 - Major depressive disorder, single episode, unspecified Code(s): F32.9 - Major depressive disorder, single episode, unspecified Status: Acute Assessment and Plan: Per son, has had problems since [place] in October. Continue increased dose of sertraline. Will need to follow as an outpatient. (3) Type 2 diabetes mellitus: Qualifiers: Diabetes mellitus complication status: without complication Diabetes mellitus superintendent terminal insulin use: without superintendent terminal use Qualified Code(s): E11.9 - Type 2 diabetes mellitus without complications Code(s): E11.9 - Type 2 diabetes mellitus without complications Status: Acute Assessment and Plan: Hemoglobin A1c 13.9 in October 2019. Glucose reviewed on 01/31/2020 and emains controlled. Will continue metformin. Sliding scale insulin available while here. (4) CAD (coronary artery disease): Qualifiers: Associated angina: angina presence unspecified Coronary Disease-Associated Artery/Lesion type: [place] artery [place] vs. transplanted heart: [place] heart Qualified Code(s): I25.10 - Atherosclerotic heart disease of [place] coronary artery without angina pectoris Code(s): I25.10 - Atherosclerotic heart disease of [place] coronary artery without angina pectoris Status: Acute Assessment and Plan: Known coronary artery disease with recent ST-elevation [place] in October 2019. Echocardiogram as noted above. Cardiology following. Cardiac medications as noted above. (5) Chest pain: Qualifiers: Chest pain type: unspecified Qualified Code(s): R07.9 - Chest pain, unspecified Code(s): R07.9 - Chest pain, unspecified Status: Acute Assessment and Plan: No further complaint. Mild elevation of troponin level but flat. (6) Palpitations: Code(s): R00.2 - Palpitations Status: Acute Assessment and Plan: No further palpitations at this time. Continue cardiac treatment as noted above. (7) Pulmonary embolism: Qualifiers: Pulmonary embolism type: single subsegmental (without acute cor pulmonale) Qualified Code(s): I26.93 - Single subsegmental pulmonary embolism without acute cor pulmonale Code(s): I26.99 - Other pulmonary embolism without acute cor pulmonale Status: Acute Assessment and Plan: Patient with CT chest on 12/28/2019 with pulmonary embolism in the right lower lobe. She was transferred to [facility] at that time. Does have IVC filter confirmed by son. Stable on room air. Continue Eliquis. (8) COVID-19 ruled out: Code(s): Z03.818 - Encounter for observation for suspected exposure to other biological agents ruled out Status: Ruled-out Assessment and Plan: COVID-19 testing negative. Time Spent With Patient Time with patient: 15 - 25 minutes Subjective Date/time seen: 01/31/20 10:16 Interval history: Date of Service: 01/31/2020. Admitted with CHF exacerbation. Sitting up in bed today.
--- NOTE | 2020-01-31 11:23 | PM.PNCARD ---
Progress Note: A&P Assessment and Plan (1) CHF (congestive heart failure): Qualifiers: Heart failure chronicity: acute Heart failure type: systolic Qualified Code(s): I50.21 - Acute systolic (congestive) heart failure Code(s): I50.9 - Heart failure, unspecified Status: Acute Assessment and Plan: She continues to complain of smothery feeling. Oxygen saturations on room air remains 96-99%. Echocardiogram shows severe LV systolic dysfunction, ejection fraction 20-25%, moderate MR, severe pulmonary hypertension, RVSP 70 mmHg. Blood pressure soft. Tolerating Metoprolol succinate 25 mg daily, spironolactone 25 mg daily and furosemide 40 mg IV push every 12 hours. Transition back to her home dose of furosemide at 40 mg p.o. b.i.d.. Heart rates are reasonable without ivabradine. Will leave this off at discharge. Magnesium 2.0 this morning. Potassium 3.9. Having less ectopic beats. Prognosis is poor. (2) Chest pain: Qualifiers: Chest pain type: unspecified Qualified Code(s): R07.9 - Chest pain, unspecified Code(s): R07.9 - Chest pain, unspecified Status: Acute Assessment and Plan: Denied any chest discomfort. (3) CAD (coronary artery disease): Qualifiers: Associated angina: angina presence unspecified Coronary Disease-Associated Artery/Lesion type: [place] artery [place] vs. transplanted heart: [place] heart Qualified Code(s): I25.10 - Atherosclerotic heart disease of [place] coronary artery without angina pectoris Code(s): I25.10 - Atherosclerotic heart disease of [place] coronary artery without angina pectoris Status: Acute Assessment and Plan: 11/26/2019 ST-elevation [place] initially treated thrombolytics followed by complex intervention to SVG to large OM and anastomosis into [place] OM branch 4.0 x 22 mm sirolimus in SVG, 2.75 x 18 mm sirolimus at anastomosis, and 2.5 x 22 mm sirolimus drug-eluting stent [place] OM. Cardiac catheterization was performed at [facility] on 12/20/[address] Rm. Medical management was recommended. She was discharged on 01/14/2020 and hospice was recommended. -continue clopidogrel as she is on Apixaban for PE. (4) Ischemic cardiomyopathy: Code(s): I25.5 - Ischemic cardiomyopathy Status: Acute Assessment and Plan: Management as above (5) Pulmonary embolism: Qualifiers: Pulmonary embolism type: single subsegmental (without acute cor pulmonale) Qualified Code(s): I26.93 - Single subsegmental pulmonary embolism without acute cor pulmonale Code(s): I26.99 - Other pulmonary embolism without acute cor pulmonale Status: Acute Assessment and Plan: 12/28/2019 single PE segmental, common trunk of the posterior and lateral basilar segmental pulmonary arteries of right lower lobe started on Eliquis after transfer to outside facility [facility]. IVC filter placed on 01/01/2020. She claims absolute compliance with her anticoagulation. Continue Eliquis. (6) Type 2 diabetes mellitus: Qualifiers: Diabetes mellitus complication status: without complication Diabetes mellitus fci insulin use: without fci use Qualified Code(s): E11.9 - Type 2 diabetes mellitus without complications Code(s): E11.9 - Type 2 diabetes mellitus without complications Status: Acute Assessment and Plan: Was very poorly controlled hemoglobin A1c 13.9% in the end of October. 01/27/2020 6.9. Has had some low blood sugars. Additional Plan OK to discharge from cardiac standpoint See discharge instructions for follow-up. Plan discussed Dr Phillip 1125 01/31/2020 Subjective Date/time seen: 01/31/20 11:23 Interval history:
[2020-01-31 12:27] LABS: Glucose Point of Care 120 (65-105)
--- NOTE | 2020-01-31 18:50 | PM.DS ---
DS: Admitting Diagnosis Admitting Diagnosis Admitting Diagnosis: Acute systolic (congestive) heart failure DS: Discharge Diagnosis Discharge Diagnosis (1) Acute exacerbation of CHF (congestive heart failure): Qualifiers: Heart failure type: systolic Qualified Code(s): I50.23 - Acute on chronic systolic (congestive) heart failure Code(s): I50.9 - Heart failure, unspecified Status: Acute (2) Depression: Qualifiers: Depression Type: unspecified Qualified Code(s): F32.9 - Major depressive disorder, single episode, unspecified Code(s): F32.9 - Major depressive disorder, single episode, unspecified Status: Acute (3) Type 2 diabetes mellitus: Qualifiers: Diabetes mellitus complication status: without complication Diabetes mellitus bed bug exterminator insulin use: without halfway use Qualified Code(s): E11.9 - Type 2 diabetes mellitus without complications Code(s): E11.9 - Type 2 diabetes mellitus without complications Status: Acute (4) CAD (coronary artery disease): Qualifiers: Associated angina: angina presence unspecified Coronary Disease-Associated Artery/Lesion type: [place] artery [place] vs. transplanted heart: [place] heart Qualified Code(s): I25.10 - Atherosclerotic heart disease of [place] coronary artery without angina pectoris Code(s): I25.10 - Atherosclerotic heart disease of [place] coronary artery without angina pectoris Status: Acute (5) Chest pain: Qualifiers: Chest pain type: unspecified Qualified Code(s): R07.9 - Chest pain, unspecified Code(s): R07.9 - Chest pain, unspecified Status: Acute (6) Palpitations: Code(s): R00.2 - Palpitations Status: Acute (7) Pulmonary embolism: Qualifiers: Pulmonary embolism type: single subsegmental (without acute cor pulmonale) Qualified Code(s): I26.93 - Single subsegmental pulmonary embolism without acute cor pulmonale Code(s): I26.99 - Other pulmonary embolism without acute cor pulmonale Status: Acute (8) COVID-19 ruled out: Code(s): Z03.818 - Encounter for observation for suspected exposure to other biological agents ruled out Status: Ruled-out DS: Summary Hospital Course Reason for hospitalization: Worsening shortness of breath. Hospital Course: Date of Service of Discharge: January 31, 2020. History of Present Illness: Patient is a 69-year-old with known CHF, coronary disease, diabetes, anxiety and depression Who presented to the emergency from home due to worsening shortness of breath. Patient did have STEMI in October and subsequently developed pulmonary embolism diagnosed in December at which time she was transferred to [facility]. After discharge from [facility] she was sent to [place] [facility] for skilled rehab where she continued to have shortness of breath and chest pain. She was eventually discharged home on 01/25/2020 doing well up until the following morning when the worsening shortness of breath occurred. No cough, fever or chills. She does report central chest pain radiating to the right shoulder. No abdominal pain, nausea or vomiting. Patient does admit to feeling anxious since her heart catheterization in October 2019. She also will have some palpitations. No urinary symptoms. In the emergency room, findings were consistent with CHF exacerbation. Additionally COVID 19 testing was initiated. Patient was admitted to IMU for further evaluation and treatment. Course in Hospital: As noted, patient was admitted to the IMU where she remained for the duration of her stay. She was initially isolated while awaiting COVID-19 testing. With COVID-19 testing results negative, isolation was discontinued. She was started on IV Lasix as well as given oral spironolactone, digoxin and metoprolol. A new echocardiogram was done with EF slightly lower at 20-25%, moderate mitral regurgitation and significan
--- NOTE | 2020-01-31 22:30 | PCDIET ---
Pt's spouse called to verify what medications the pt should take tonight. Reviewed medications per discharge instructions. Pt to take atorvastatin and eliquis tonight. Pt states a home health nurse will be out tomorrow. Suggested that pt and spouse ask for home health nurse to help setup medication so they know when pt is supposed to take each medication. Verbalized understanding.
== END 2020-01-31 15:29 | disposition home health service (06) | DRG 291 ==
LOC: ANHED 18:00 → ANHICU 18:32 → ANHIMU 01-29 04:15 → ANHICU 02-04 12:14 → ANHIMU 02-04 12:14
PROVIDERS: Internal Medicine; Nurse Practitioner Adult Health; Admitting Provider Family Medicine; Emergency Provider Emergency Medicine; PCP Nurse Practitioner Family; Visit Provider Hospitalist
DX: I50.23 Acute on chronic systolic (congestive) heart failure (principal); I26.93 Single subsegmental thrombotic pulmonary embolism without acute cor pulmonale; I27.20 Pulmonary hypertension, unspecified; E11.42 Type 2 diabetes mellitus with diabetic polyneuropathy; D64.9 Anemia, unspecified; F32.9 Major depressive disorder, single episode, unspecified; F41.9 Anxiety disorder, unspecified; I25.10 Atherosclerotic heart disease of native coronary artery without angina pectoris; I34.0 Nonrheumatic mitral (valve) insufficiency; I25.5 Ischemic cardiomyopathy; G47.33 Obstructive sleep apnea (adult) (pediatric); R07.89 Other chest pain; Z20.828 Contact with and (suspected) exposure to other viral communicable diseases; R00.2 Palpitations; I25.2 Old myocardial infarction; Z79.01 Long term (current) use of anticoagulants; Z87.891 Personal history of nicotine dependence; Z95.1 Presence of aortocoronary bypass graft; Z95.5 Presence of coronary angioplasty implant and graft; Z98.41 Cataract extraction status, right eye
CPT/HCPCS: 36415; 71045; 71046; 80048; 80053; 80069; 80162; 81001; 82607; 82728; 82746; 83036; 83540; 83550; 83735; 83880; 84100; 84439; 84443; 84480; 84484; 85025; 85652; 86140; 87086; 87088; 87635; 93005; 96374; 97110; 97116; 97161; 97165; 97535; 99285; A9270; C8929; C9803; J1940; J3475; Q9957; U0003